=== PATIENT | male | born 1960 | race Caucasian/White ===

== ENCOUNTER 2019-08-01 08:53 | Inpatient (IN) | payer MEDICAID ==
[2019-08-01] MEDS ORDERED: FAMOTIDINE 20 MG/2 ML INJ IV ONE (10:00)
[2019-08-01] MEDS ORDERED: SODIUM CHLORIDE 0.9% 1000 ML 1,000 ML IV ONE ×2 (10:00→11:19)
[2019-08-01] MEDS ORDERED: ONDANSETRON 4 MG/2 ML INJ IV ONE (10:00)
[2019-08-01 10:06] LABS: Bilirubin,Urine NEG (Negative); Blood,Urine SM (Negative); Color,Urine Straw (Yellow); Urobilinogen,Urine < 2.0 mg/dL (<2.0); WBC,Urine < 1.0 /HPF (0.0-6.0)
[2019-08-01 10:24] LABS: Basophils % (Auto) 0.4 % (0.0-1.8); Eosinophils # (Auto) 0.1 K/mm3 (0.0-0.4); Eosinophils % (Auto) 0.8 % (0.0-4.3); Hematocrit 30.4 % (35.5-45.6); Lymphocytes # (Auto) 1.6 K/mm3 (1.2-5.4); Lymphocytes % (Auto) 17.4 % (13.4-35.0); Mean Corpuscular HGB Conc 36 % (32-34); Mean Corpuscular Volume 80 fl (84-94); Monocytes # (Auto) 0.5 K/mm3 (0.0-0.8); Platelet Count 403 K/mm3 (140-440); Red Cell Distribution Width 13.1 % (13.2-15.2)
[2019-08-01 10:55] LABS: Alanine Aminotransferase 13 units/L (7-56); Albumin 3.7 g/dL (3.9-5); BUN/Creatinine Ratio 8; Blood Urea Nitrogen 10 mg/dL (9-20); Calcium 8.6 mg/dL (8.4-10.2); Hemolysis Index 14
--- NOTE | 2019-08-01 11:47 | Emergency Department Report ---
ED General Adult HPI - General Chief complaint: Nausea/Vomiting/Diarrhea Stated complaint: UNCONTROL URINE/VOMITING Time Seen by Provider: 08/01/19 09:54 Source: family Mode of arrival: Ambulatory Limitations: Language Barrier - History of Present Illness Initial comments: Patient is a 59-year-old [place]ese gentleman who is being brought in by family because of one week of nausea and vomiting. 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 He states he is not eaten in a week. Patient has a history of diabetes hypertension and a "brain disease". When asked to give further information about his brain disease his sister states that he has a mental disorder. Patient is denying any headache fevers chills neck stiffness cough cold congestion or abdominal pain at this time. Patient's family state that he is been unable to sleep and has been very restless over the past week. They also state that he's had urinary frequency but the patient is denying any dysuria - Related Data Allergies Allergy/AdvReac Type Severity Reaction Status Date / Time No Known Allergies Allergy Unverified 08/01/19 09:00 ED Review of Systems ROS: Stated complaint: UNCONTROL URINE/VOMITING Other details as noted in HPI Comment: All other systems reviewed and negative ED Past Medical Hx - Past Medical History Previous Medical History?: Yes Hx Hypertension: Yes Hx Diabetes: Yes - Social History Smoking Status: Never Smoker Substance Use Type: None ED Physical Exam - General Limitations: Language Barrier General appearance: alert, in no apparent distress - Head Head exam: Present: atraumatic, normocephalic - Eye Eye exam: Present: normal appearance, PERRL, EOMI - ENT ENT exam: Present: mucous membranes dry - Neck Neck exam: Present: normal inspection. Absent: tenderness - Respiratory Respiratory exam: Present: normal lung sounds bilaterally. Absent: respiratory distress, wheezes, rales, rhonchi - Cardiovascular Cardiovascular Exam: Present: normal rhythm, tachycardia, normal heart sounds. Absent: systolic murmur, diastolic murmur, rubs, gallop - GI/Abdominal GI/Abdominal exam: Present: soft, normal bowel sounds. Absent: distended, tenderness, guarding, rebound - Rectal Rectal exam: Present: deferred - Extremities Exam Extremities exam: Present: normal inspection - Back Exam Back exam: Present: normal inspection - Neurological Exam Neurological exam: Present: alert, oriented X3 - Psychiatric Psychiatric exam: Present: normal affect, normal mood - Skin Skin exam: Present: warm, dry, intact, normal color. Absent: rash ED Course Vital Signs 08/01/19 09:07 Temperature 98.0 F Pulse Rate 101 H Respiratory 18 Rate Blood Pressure 175/85 O2 Sat by Pulse 98 Oximetry - Reevaluation(s) Reevaluation #1: 08/01/19 12:02 To be admitted to the hospitalist service. ED Medical Decision Making - Lab Data Result diagrams: 08/01/19 10:03 08/01/19 10:03 Lab Results 08/01/19 08/01/19 08/01/19 Range/Units 09:14 09:33 10:03 WBC 9.1 (4.5-11.0) K/mm3 RBC 3.80 (3.65-5.03) M/mm3 Hgb 11.0 L (11.8-15.2) gm/dl Hct 30.4 L (35.5-45.6) % MCV 80 L (84-94) fl MCH 29 (28-32) pg MCHC 36 H (32-34) % RDW 13.1 L (13.2-15.2) % Plt Count 403 (140-440) K/mm3 Lymph % (Auto) 17.4 (13.4-35.0) % [place] % (Auto) 6.0 (0.0-7.3) % Eos % (Auto) 0.8 (0.0-4.3) % Baso % (Auto) 0.4 (0.0-1.8) % Lymph # 1.6 (1.2-5.4) K/mm3 [place] # 0.5 (0.0-0.8) K/mm3 Eos # 0.1 (0.0-0.4) K/mm3 Baso # 0.0 (0.0-0.1) K/mm3 Seg Neutrophils % 75.4 H (40.0-70.0) % Seg Neutrophils # 6.8 (1.8-7.7) K/mm3 Sodium (137-145) mmol/L Potassium (3.6-5.0) mmol/L Chloride (98-107) mmol/L Carbon Dioxide (22-30) mmol/L Anion Gap mmol/L BUN (9-20) mg/dL Creatinine (0.8-1.5) mg/dL Estimated GFR ml/min BUN/Creatinine Ratio % Glucose (75-100) mg/dL POC Glucose 148 H (70-105) Calcium (8.4-10.2) mg/dL Total Bilirubin (0.1-1.2) mg/dL AST (5-40) units/L ALT (7-56) units/L Alkaline Phosphatase (35-129) units/L Total Protein (6.3-8.2) g/dL Albumin (3.9-5) g/dL Albumin/Globulin Ratio % Urine Color Straw (Yellow) Urine Turbidity Clear (Clear) Urine pH 7.0 (5.0-7.0) Ur Specific [place] 1.003 (1.003-1.030) Urine Protein 100 mg/dl (Negative) mg/dL Urine Glucose (UA) 50 (Negative) mg/dL Urine Ketones Neg (Negative) mg/dL Urine Blood Sm (Negative) Urine Nitrite Neg (Negative) Urine Bilirubin Neg (Negative) Urine Urobilinogen < 2.0 (<2.0) mg/dL Ur Leukocyte Esterase Neg (Negative) Urine WBC (Auto) < 1.0 (0.0-6.0) /HPF Urine RBC (Auto) 1.0 (0.0-6.0) /HPF 08/01/19 Range/Units 10:03 WBC (4.5-11.0) K/mm3 RBC (3.65-5.03) M/mm3 Hgb (11.8-15.2) gm/dl Hct (35.5-45.6) % MCV (84-94) fl MCH (28-32) pg MCHC (32-34) % RDW (13.2-15.2) % Plt Count (140-440) K/mm3 Lymph % (Auto) (13.4-35.0) % [place] % (Auto) (0.0-7.3) % Eos % (Auto) (0.0-4.3) % Baso % (Auto) (0.0-1.8) % Lymph # (1.2-5.4) K/mm3 [place] # (0.0-0.8) K/mm3 Eos # (0.0-0.4) K/mm3 Baso # (0.0-0.1) K/mm3 Seg Neutrophils % (40.0-70.0) % Seg Neutrophils # (1.8-7.7) K/mm3 Sodium 120 L (137-145) mmol/L Potassium 4.5 (3.6-5.0) mmol/L Chloride 80.9 L (98-107) mmol/L Carbon Dioxide 22 (22-30) mmol/L Anion Gap 22 mmol/L BUN 10 (9-20) mg/dL Creatinine 1.2 (0.8-1.5) mg/dL Estimated GFR > 60 ml/min BUN/Creatinine Ratio 8 % Glucose 133 H (75-100) mg/dL POC Glucose (70-105) Calcium 8.6 (8.4-10.2) mg/dL Total Bilirubin 0.40 (0.1-1.2) mg/dL AST 19 (5-40) units/L ALT 13 (7-56) units/L Alkaline Phosphatase 84 (35-129) units/L Total Protein 6.7 (6.3-8.2) g/dL Albumin 3.7 L (3.9-5) g/dL Albumin/Globulin Ratio 1.2 % Urine Color (Yellow) Urine Turbidity (Clear) Urine pH (5.0-7.0) Ur Specific [place] (1.003-1.030) Urine Protein (Negative) mg/dL Urine Glucose (UA) (Negative) mg/dL Urine Ketones (Negative) mg/dL Urine Blood (Negative) Urine Nitrite (Negative) Urine Bilirubin (Negative) Urine Urobilinogen (<2.0) mg/dL Ur Leukocyte Esterase (Negative) Urine WBC (Auto) (0.0-6.0) /HPF Urine RBC (Auto) (0.0-6.0) /HPF - Medical Decision Making Patient is a 59-year-old [place]ese gentleman who is presenting with 1 week of nausea vomiting decreased appetite. Patient's laboratory studies show that he has a severely decreased sodium level. Patient is a diabetic but his blood glucoses were relatively within normal limits. Patient was given IV hydration here in emergency department. Consult to the hospitalist to see the patient meets criteria for admission. Critical care attestation.: If time is entered above; I have spent that time in minutes in the direct care of this critically ill patient, excluding procedure time. ED Disposition Clinical Impression: Hyponatremia Disposition: DC-09 OP ADMIT IP TO THIS HOSP Is pt being admited?: Yes Does the pt Need Aspirin: No Condition: Stable Referrals: AIDEN CARCAMO MD [Primary Care Provider] - 3-5 Days Time of Disposition: 12:02
--- NOTE | 2019-08-01 11:47 | History and Physical Report ---
History of Present Illness Chief complaint: He is confused, and not eating, and can hardly walk History of present illness: 59 YO Male with HTN, DM presents to ED for evaluation. Pt is confused, and unable to provide history. Pt history is provided by family who is at bedside during exam and interview. per family, the patient has experienced increased weakness and confusion over the past 1 week with progressively worsening symptoms over the same time frame. Pt has developed progressive weakness and is currently unable to ambulate independently, and is bedbound. Pt transported to [facility] via private vehicle for further evaluation and care. Pt seen and evaluated in ED and found to be in distress. Pt is currently minimally verbal, confused, and does not respond when his name is called. Pt is unable to track and follow commands. Pt has 90% decrease in all oral intake over the past 1-2 weeks. Pt found to have Severe Hyponatremia complicated by Metabolic Encephalopathy. Pt currently requires 6/6 assistance with activities of daily living and requires verbal prompting and redirection with all activities, and has diminished gag reflex and is at risk for aspiration. Pt is unable to maintain a seated position in bed without slumping over. Pt requires assistance with repositioning in bed. Pt has GCS of 12. Pt admitted to [facility] and treated with supportive care due to high likelihood of clinical decompensation and worsening of the aforementioned symptoms. Nephrology consulted in ED. No further history obtainable. No prior admission for review. All medication listed at time of admission have been reconciled. Past History Past Medical History: diabetes, hypertension Past Surgical History: No surgical history, Other (reviewed) Social history: single. denies: smoking, alcohol abuse, prescription drug abuse Family history: no significant family history (reviewed) Medications and Allergies Allergies Allergy/AdvReac Type Severity Reaction Status Date / Time No Known Allergies Allergy Unverified 08/01/19 09:00 Active Meds: Active Medications Sodium Chloride (Nacl 0.9% 1000 Ml) 1,000 mls @ 999 mls/hr IV BOLUS ONE Stop: 08/01/19 12:19 Review of Systems ROS unobtainable: due to mental status Exam - Constitutional Vitals: Temp Pulse Resp BP Pulse Ox 98.0 F 101 H 18 175/85 98 08/01/19 09:07 08/01/19 09:07 08/01/19 09:07 08/01/19 09:07 08/01/19 09:07 General appearance: Present: severe distress, disheveled - EENT Eyes: Present: PERRL ENT: hearing intact, clear oral mucosa - Neck Neck: Present: supple, normal ROM - Respiratory Respiratory effort: normal Respiratory: bilateral: CTA - Cardiovascular Heart Sounds: Present: S1 & S2. Absent: rub, click - Extremities Extremities: pulses symmetrical, No edema Peripheral Pulses: within normal limits - Abdominal General gastrointestinal: Present: soft, non-tender, non-distended, normal bowel sounds Male genitourinary: Present: normal - Integumentary Integumentary: Present: clear, dry, clammy, decreased turgor - Musculoskeletal Musculoskeletal: generalized weakness - Psychiatric Psychiatric: no appropriate mood/affect, no intact judgment & insight, no memory intact - Neurologic Neurologic: CNII-XII intact, no focal deficits, moves all extremities, no gait normal Results - Labs CBC & Chem 7: 08/01/19 10:03 08/01/19 10:03 Labs: Abnormal lab results 08/01/19 08/01/19 08/01/19 Range/Units 09:14 10:03 10:03 Hgb 11.0 L (11.8-15.2) gm/dl Hct 30.4 L (35.5-45.6) % MCV 80 L (84-94) fl MCHC 36 H (32-34) % RDW 13.1 L (13.2-15.2) % Seg Neutrophils % 75.4 H (40.0-70.0) % Sodium 120 L (137-145) mmol/L Chloride 80.9 L (98-107) mmol/L Glucose 133 H (75-100) mg/dL POC Glucose 148 H (70-105) Albumin 3.7 L (3.9-5) g/dL Assessment and Plan - Patient Problems (1) Metabolic encephalopathy Current Visit: Yes Status: Acute Plan to address problem: CT head, neuro check, thyroid panel, aspiration precautions, fall precautions, IVF resuscitation therapy, CBC, CMP, seizure precautions, NPO for 12 hours. (2) Hyponatremia syndrome Current Visit: Yes Status: Acute Plan to address problem: Nephrology consulted, Urine electrolytes, urine osmolality, monitor uop q shift, IVF resuscitation therapy, neuro checks, serial bmp, monitor volume status to determine if currently euvolemic/hypervolemic/or hypovolumeic. supportive care (3) HTN (hypertension) Current Visit: Yes Status: Acute Qualifiers: Hypertension type: essential hypertension Qualified Code(s): I10 - Essential (primary) hypertension Plan to address problem: Monitor bp q shift, supportive care, continue medical management. (4) Diabetes Current Visit: Yes Status: Acute Plan to address problem: ADA diet, insulin, accu check, hypoglycemia protocol (5) Debility Current Visit: Yes Status: Acute Plan to address problem: PT consulted, Case management consulted for D/C Planning. (6) DVT prophylaxis Current Visit: Yes Status: Acute Plan to address problem: SCD to BLE while in bed. Prophylactic heparin
--- NOTE | 2019-08-01 13:52 | Cat Scan Report ---
CT head without contrast INDICATION : confusion. TECHNIQUE: Axial imaging performed from the skull apex through the skull base without the use of con trast. All CT scans at this location are performed using CT dose reduction for ALARA by means of aut omated exposure control. COMPARISON: None FINDINGS: Parenchyma: No acute intracranial hemorrhage or parenchymal abnormality. Ventricles: Ventricles are normal in size and appear symmetric. Soft tissues: Soft tissues including the orbits appear normal. Bones: No acute osseous abnormality. Sinuses: Sinuses and mastoid air cells are clear. IMPRESSION: No acute abnormality. Signer Name: Nicola Ramos MD Signed: 08/01/2019 1:48 PM Workstation Name: [id number]
[2019-08-01] MEDS ORDERED: SODIUM CHLORIDE 0.9% 1000 ML 1,000 ML ONE (15:14)
[2019-08-01 15:38] LABS: Bilirubin,Urine NEG (Negative); Blood,Urine SM (Negative); Color,Urine Colorless (Yellow); Urobilinogen,Urine < 2.0 mg/dL (<2.0); WBC,Urine < 1.0 /HPF (0.0-6.0)
[2019-08-01 15:39] LABS: Creatinine,Urine 13.6 mg/dL (0.1-20.0)
--- NOTE | 2019-08-01 16:12 | Consultation ---
History of Present Illness - Reason for Consult Consult date: 08/01/19 hyponatremia - History of Present Illness The patient is a 59 YO cymraes with history significant for HTN, DM type 2, ?Schizophrenia and chronic confusion who presented to [facility] ED 08/01 with c/o persistent N & V for the past week. Pt is confused and history was provided by the family at bedside. Patient has persistent vomiting for the past week. He vomits everytime he vomits. His PO intake has been poor for the past week. Pt is also has some weakness and not walking well for the past few days. He was found to have Sodium level of 120 on admission. His psych meds include Latuda, Zyprexa and Trazadone. Nephrology was consulted for further evaluation. Past History Past Medical History: diabetes, hypertension, other (see HPI) Past Surgical History: No surgical history, Other (reviewed) Social history: single. denies: smoking, alcohol abuse, prescription drug abuse Family history: no significant family history (reviewed) Medications and Allergies Allergies Allergy/AdvReac Type Severity Reaction Status Date / Time No Known Allergies Allergy Unverified 08/01/19 09:00 Home Medications Medication Instructions Recorded Confirmed Last Taken Type Insulin Glargine [Lantus VIAL] 52 units IM DAILY 08/01/19 08/01/19 Unknown History Latuda 80 mg PO DAILY 08/01/19 08/01/19 Unknown History Metoprolol [Lopressor TAB] 25 mg PO DAILY 08/01/19 08/01/19 Unknown History OLANzapine [Zyprexa] 10 mg PO DAILY 08/01/19 08/01/19 Unknown History metFORMIN [Glucophage] 850 mg PO TID 08/01/19 08/01/19 Unknown History traZODone [Desyrel] 100 mg PO PRN 08/01/19 08/01/19 Unknown History Active Meds: Active Medications Sodium Chloride (Nacl 0.9% 1000 Ml) 1,000 mls @ 125 mls/hr IV DIRECT LANG Sodium Chloride (Sodium Chloride Flush Syringe 10 Ml) 10 ml IV BID LANG Sodium Chloride (Sodium Chloride Flush Syringe 10 Ml) 10 ml IV PRN PRN PRN Reason: LINE FLUSH Review of Systems ROS unobtainable: due to mental status Exam - Vital Signs Vital signs: Vital Signs Temp Pulse Resp BP Pulse Ox 98.0 F 101 H 18 175/85 98 08/01/19 09:07 08/01/19 09:07 08/01/19 09:07 08/01/19 09:07 08/01/19 09:07 - General Appearance General appearance: well-developed, well-nourished, appears stated age, other (no distress) EENT: ATNC, PERRL, hearing intact Neck: Present: neck supple, trachea midline Respiratory: Clear to Ascultation Heart: regular, S1S2, no murmurs Gastrointestinal: Present: normoactive bowel sounds. Absent: tenderness, distended Integumentary: no rash Neurologic: confused, disoriented, other (follows some command) Musculoskeletal: Present: other (no edema) Results - Lab Results 08/01/19 10:03 08/01/19 10:03 Most recent lab results Calcium 8.6 mg/dL (8.4-10.2) 08/01/19 10:03 Urine Creatinine 13.6 mg/dL (0.1-20.0) 08/01/19 15:15 Urine Sodium 21 mmol/L 08/01/19 09:33 Assessment and Plan 1. Hyponatremia: Likely hyponatremia from combination of volume depletion / poor PO intake and medication. Urine studies results noted. Continue IV fluids to treat any volume depletion. Stat labs ordered and I also spoke to the RN in IMCU. Pt need serial chemistry to monitor Sodium levels. 2. FEN: Volume depletion, continue IV fluids. Monitor lytes. 3. Encephalopathy. 4. Nausea and vomiting. 5. Normochromic anemia: POA. 6. DM type 2. 7. Hypertension.
[2019-08-01 21:18] LABS: BUN/Creatinine Ratio 8; Blood Urea Nitrogen 9 mg/dL (9-20); Calcium 8.5 mg/dL (8.4-10.2); Hemolysis Index 17
[2019-08-01 21:22] LABS: Uric Acid 4.6 mg/dL (3.5-7.6)
[2019-08-01] MEDS ORDERED: MAGNESIUM SULFATE 2 GM/50 ML BAG IV ONE (21:30)
[2019-08-01] MEDS: SODIUM CHLORIDE 0.9% 1000 ML 1,000 ML IV SCH (23:11)
[2019-08-01] MEDS ORDERED: diphenhydrAMINE 50 MG/ML VIAL IV ONE (23:28)
[2019-08-02 07:07] LABS: BUN/Creatinine Ratio 8; Blood Urea Nitrogen 10 mg/dL (9-20); Calcium 8.6 mg/dL (8.4-10.2); Hemolysis Index 73
[2019-08-02] MEDS: SODIUM CHLORIDE 0.9% 1000 ML 1,000 ML IV SCH (07:43)
--- NOTE | 2019-08-02 11:52 | Progress Note ---
Assessment and Plan 1. Hyponatremia: Likely hyponatremia secondary to volume depletion +/- SSRI. Urine studies results noted. Continue IV fluids to treat any volume depletion. Sodium level is improving appropriately. Monitor sodium level. 2. FEN: Volume depletion, continue IV fluids. Monitor lytes. 3. Encephalopathy. 4. Nausea and vomiting. 5. Normochromic anemia: POA. 6. DM type 2. 7. Hypertension. Examination: General appearance: well-developed, well-nourished, appears stated age, no distress HEENT: ATNC, LIZA Neck: neck supple, trachea midline Respiratory: Clear to Ascultation Heart: regular, S1S2, no murmurs Gastrointestinal: soft, normoactive bowel sounds, not tender Integumentary: no rash Neurologic: able to move extremities Ext: no edema Subjective Date of service: 08/02/19 Interval history: Patient was seen and examined at the bedside. Objective - Vital Signs Vital signs: Vital Signs - 12hr 08/02/19 08/02/19 08/02/19 00:00 00:01 00:11 Temperature Pulse Rate 99 H 93 H Pulse Rate [ 84 Apical] Pulse Rate [ From Monitor] Respiratory 14 14 13 Rate Blood Pressure 168/80 168/80 O2 Sat by Pulse 99 99 99 Oximetry 08/02/19 08/02/19 08/02/19 00:21 00:31 00:41 Temperature Pulse Rate 91 H 85 89 Pulse Rate [ Apical] Pulse Rate [ From Monitor] Respiratory 14 13 14 Rate Blood Pressure 168/80 168/80 168/80 O2 Sat by Pulse 99 100 98 Oximetry 08/02/19 08/02/19 08/02/19 00:51 01:00 01:11 Temperature Pulse Rate 87 86 87 Pulse Rate [ Apical] Pulse Rate [ From Monitor] Respiratory 10 L 12 14 Rate Blood Pressure 168/80 174/79 174/79 O2 Sat by Pulse 100 100 99 Oximetry 08/02/19 08/02/19 08/02/19 01:21 01:31 01:41 Temperature Pulse Rate 89 92 H 90 Pulse Rate [ Apical] Pulse Rate [ From Monitor] Respiratory 14 12 17 Rate Blood Pressure 174/79 174/79 174/79 O2 Sat by Pulse 100 100 99 Oximetry 08/02/19 08/02/19 08/02/19 01:51 02:00 02:11 Temperature Pulse Rate 91 H 86 109 H Pulse Rate [ Apical] Pulse Rate [ From Monitor] Respiratory 13 13 13 Rate Blood Pressure 174/79 149/71 O2 Sat by Pulse 100 98 99 Oximetry 08/02/19 08/02/19 08/02/19 02:21 02:31 02:41 Temperature Pulse Rate 80 96 H 88 Pulse Rate [ Apical] Pulse Rate [ From Monitor] Respiratory 10 L 13 12 Rate Blood Pressure 149/71 149/71 149/71 O2 Sat by Pulse 100 99 100 Oximetry 08/02/19 08/02/19 08/02/19 02:51 03:00 03:11 Temperature Pulse Rate 85 86 82 Pulse Rate [ Apical] Pulse Rate [ From Monitor] Respiratory 12 13 19 Rate Blood Pressure 149/71 114/92 149/71 O2 Sat by Pulse 100 100 98 Oximetry 08/02/19 08/02/19 08/02/19 03:21 03:31 03:40 Temperature 98 F Pulse Rate 94 H 90 Pulse Rate [ Apical] Pulse Rate [ From Monitor] Respiratory 13 15 Rate Blood Pressure 149/71 149/71 O2 Sat by Pulse 100 100 Oximetry 08/02/19 08/02/19 08/02/19 03:41 03:51 04:00 Temperature Pulse Rate 84 86 Pulse Rate [ 88 Apical] Pulse Rate [ From Monitor] Respiratory 12 13 16 Rate Blood Pressure 114/92 114/92 O2 Sat by Pulse 99 99 99 Oximetry 08/02/19 08/02/19 08/02/19 04:01 04:11 04:21 Temperature Pulse Rate 83 85 83 Pulse Rate [ Apical] Pulse Rate [ From Monitor] Respiratory 12 12 11 L Rate Blood Pressure 157/66 157/66 157/66 O2 Sat by Pulse 99 99 99 Oximetry 08/02/19 08/02/19 08/02/19 04:31 04:41 04:51 Temperature Pulse Rate 79 99 H 87 Pulse Rate [ Apical] Pulse Rate [ From Monitor] Respiratory 11 L 12 13 Rate Blood Pressure 157/66 157/66 157/66 O2 Sat by Pulse 98 99 99 Oximetry 08/02/19 08/02/19 08/02/19 05:01 05:11 05:20 Temperature Pulse Rate 91 H 98 H 85 Pulse Rate [ Apical] Pulse Rate [ From Monitor] Respiratory 18 17 12 Rate Blood Pressure 157/70 157/70 170/77 O2 Sat by Pulse 99 99 100 Oximetry 08/02/19 08/02/19 08/02/19 05:31 05:41 05:51 Temperature Pulse Rate 89 90 91 H Pulse Rate [ Apical] Pulse Rate [ From Monitor] Respiratory 13 17 13 Rate Blood Pressure 170/77 170/77 O2 Sat by Pulse 99 100 100 Oximetry 08/02/19 08/02/19 08/02/19 06:00 06:11 06:21 Temperature Pulse Rate 93 H 91 H 95 H Pulse Rate [ Apical] Pulse Rate [ From Monitor] Respiratory 14 13 14 Rate Blood Pressure 177/81 177/81 177/81 O2 Sat by Pulse 99 99 100 Oximetry 08/02/19 08/02/19 08/02/19 06:31 06:41 06:51 Temperature Pulse Rate 91 H 83 93 H Pulse Rate [ Apical] Pulse Rate [ From Monitor] Respiratory 13 12 13 Rate Blood Pressure 177/81 177/81 177/81 O2 Sat by Pulse 98 99 100 Oximetry 08/02/19 08/02/19 08/02/19 07:01 07:11 07:21 Temperature Pulse Rate 107 H 92 H 92 H Pulse Rate [ Apical] Pulse Rate [ From Monitor] Respiratory 18 17 16 Rate Blood Pressure 171/71 171/71 171/71 O2 Sat by Pulse 99 99 100 Oximetry 08/02/19 08/02/19 08/02/19 07:31 07:41 07:51 Temperature Pulse Rate 92 H 84 90 Pulse Rate [ Apical] Pulse Rate [ From Monitor] Respiratory 12 13 12 Rate Blood Pressure 171/71 171/71 171/71 O2 Sat by Pulse 99 99 99 Oximetry 08/02/19 08/02/19 08/02/19 08:00 08:01 08:11 Temperature 97.7 F Pulse Rate 99 H 92 H Pulse Rate [ 88 Apical] Pulse Rate [ 88 From Monitor] Respiratory 15 13 12 Rate Blood Pressure 143/73 143/73 O2 Sat by Pulse 98 100 99 Oximetry 08/02/19 08/02/19 08/02/19 08:18 08:21 08:31 Temperature Pulse Rate 88 91 H 94 H Pulse Rate [ Apical] Pulse Rate [ From Monitor] Respiratory 14 12 Rate Blood Pressure 143/73 143/73 O2 Sat by Pulse 98 97 Oximetry 08/02/19 08/02/19 08/02/19 08:41 08:51 09:00 Temperature Pulse Rate 90 87 99 H Pulse Rate [ Apical] Pulse Rate [ From Monitor] Respiratory 12 13 13 Rate Blood Pressure 143/73 143/73 166/93 O2 Sat by Pulse 97 98 99 Oximetry 08/02/19 08/02/19 09:11 11:48 Temperature Pulse Rate 96 H 84 Pulse Rate [ Apical] Pulse Rate [ From Monitor] Respiratory 13 Rate Blood Pressure 166/93 164/71 O2 Sat by Pulse 99 Oximetry - Lab 08/01/19 10:03 08/02/19 15:48 Most recent lab results Calcium 8.6 mg/dL (8.4-10.2) 08/02/19 05:32 Phosphorus 2.60 mg/dL (2.5-4.5) 08/01/19 19:34 Magnesium 1.60 mg/dL (1.7-2.3) L 08/01/19 19:34 Urine Creatinine 13.6 mg/dL (0.1-20.0) 08/01/19 15:15 Urine Sodium 21 mmol/L 08/01/19 09:33 Medications & Allergies - Medications Allergies/Adverse Reactions: Allergies No Known Allergies Allergy (Unverified 08/01/19 09:00) Home Medications: Home Medications Medication Instructions Recorded Confirmed Last Taken Type Insulin Glargine [Lantus VIAL] 52 units IM DAILY 08/01/19 08/01/19 Unknown History Latuda 80 mg PO DAILY 08/01/19 08/01/19 Unknown History Metoprolol [Lopressor TAB] 25 mg PO DAILY 08/01/19 08/01/19 Unknown History OLANzapine [Zyprexa] 10 mg PO DAILY 08/01/19 08/01/19 Unknown History metFORMIN [Glucophage] 850 mg PO TID 08/01/19 08/01/19 Unknown History traZODone [Desyrel] 100 mg PO PRN 08/01/19 08/01/19 Unknown History Active Medications: Generic Name Dose Route Start Last Admin Trade Name Freq PRN Reason Stop Dose Admin Sodium Chloride 1,000 mls @ 125 mls/hr 08/01/19 12:00 08/02/19 07:43 Nacl 0.9% 1000 Ml IV 125 mls/hr DIRECT LANG Administration Magnesium Sulfate 1 gm/ Sodium 52 mls @ 52 mls/hr 08/02/19 12:00 Chloride IV 08/02/19 12:59 ONCE ONE Insulin Glargine 30 units 08/03/19 08:00 Lantus SUB-Q QDDIAB [facility] Metformin HCl 850 mg 08/02/19 16:30 Glucophage PO TIDAC [facility] Metoprolol Tartrate 25 mg 08/02/19 12:00 08/02/19 11:48 Metoprolol PO 25 mg DAILY [facility] Administration Miscellaneous Medication 80 mg 08/02/19 11:30 Latuda PO DAILY [facility] Olanzapine 10 mg 08/03/19 10:00 Zyprexa PO DAILY [facility] Sodium Chloride 10 ml 08/01/19 22:00 08/02/19 11:49 Sodium Chloride Flush Syringe 10 Ml IV Not Given BID LANG Sodium Chloride 10 ml 08/01/19 11:51 Sodium Chloride Flush Syringe 10 Ml IV PRN PRN LINE FLUSH Trazodone HCl 100 mg 08/02/19 12:00 Desyrel PO PRN LANG
[2019-08-02] MEDS ORDERED: METOPROLOL TARTRATE 25 MG TAB PO SCH (12:00)
[2019-08-02] MEDS ORDERED: MAGNESIUM SULFATE 1 GM in SODIUM CHLORIDE 0.9% 50 ML IV ONE (12:00)
[2019-08-02 16:47] LABS: BUN/Creatinine Ratio 10; Blood Urea Nitrogen 11 mg/dL (9-20); Calcium 8.8 mg/dL (8.4-10.2); Hemolysis Index 29
--- NOTE | 2019-08-02 17:49 | Progress Note ---
Assessment and Plan Assessment and plan: 59 YO Male with HTN, DM presents to ED for evaluation. Pt is confused, and unable to provide history. Pt history is provided by family who is at bedside during exam and interview. per family, the patient has experienced increased weakness and confusion over the past 1 week with progressively worsening symptoms over the same time frame. Pt has developed progressive weakness and is currently unable to ambulate independently, and is bedbound. Pt transported to [facility] via private vehicle for further evaluation and care. Pt seen and evaluated in ED and found to be in distress. Pt is currently minimally verbal, confused, and does not respond when his name is called. * On admission pt is unable to track and follow commands. Pt has 90% decrease in all oral intake over the past 1-2 weeks. Pt found to have Severe Hyponatremia complicated by Metabolic Encephalopathy. * Pt currently requires 6/6 assistance with activities of daily living and requires verbal prompting and redirection with all activities, and has diminished gag reflex and is at risk for aspiration. Pt is unable to maintain a seated position in bed without slumping over. * Pt requires assistance with repositioning in bed. Pt has GCS of 12. Pt admitted to [facility] and treated with supportive care due to high likelihood of clinical decompensation and worsening of the aforementioned symptoms. Nephrology consulted in ED. No further history obtainable. No prior admission for review. All medication listed at time of admission have been reconciled. Acute metabolic encephalopathy etiology plus or minus hyponatremia Adult failure to thrive Severe hyponatremia Diabetes mellitus Anemia DM with Hyperglycemia Hypertensive urgency Plan Continue supportive care hyponatremia improving nephrology input appreciated Food General Manager consult Check TSH, B12, folic acid level CT of the head reviewed no acute pathology noted Obtain urine drug screen Continue diabetic management Physical therapy and occupational therapy evaluation and treat If mental status continues to be an issue will obtain an MRI and probably neurology consult Patient's mental status has not yet improved to baseline and will therefore continue inpatient care for further evaluation. Resume home blood pressure medication We will add hydralazine. DVT and GI prophylaxis History Interval history: Patient seen and examined this morning family at bedside. Patient still appears a bit confused but following commands and answering questions to the family appropriately. Per family patient is compliant with medications except recently with change in mental status. Hospitalist Physical - Physical exam Narrative exam: VITAL SIGNS: Reviewed. GENERAL: The patient appears normally developed, Vital signs as documented. HEAD: No signs of head trauma. EYES: Pupils are equal. Extraocular motions intact. EARS: Hearing grossly intact. MOUTH: Oropharynx is normal. NECK: No adenopathy, no JVD. CHEST: Chest with clear breath sounds bilaterally. No wheezes, rales, or rhonchi. CARDIAC: Regular rate and rhythm. S1 and S2, without murmurs, gallops, or rubs. VASCULAR: No Edema. Peripheral pulses normal and equal in all extremities. ABDOMEN: Soft, non tender and non distended. No rebound or guarding, and no masses palpated. Bowel Sounds normal. MUSCULOSKELETAL: Good range of motion of all major joints. Extremities without clubbing, cyanosis or edema. NEUROLOGIC EXAM: Alert and oriented x 2 No focal sensory or strength deficits. Speech normal. Follows commands. PSYCHIATRIC: Mood normal. SKIN: detail exam as documented in skin assessment - Constitutional Vitals: Temp Pulse Resp BP Pulse Ox 99.1 F 83 13 146/89 98 08/02/19 12:00 08/02/19 12:50 08/02/19 12:50 08/02/19 13:00 08/02/19 13:00 General appearance: Present: severe distress, disheveled Results - Labs CBC & Chem 7: 08/01/19 10:03 08/02/19 15:48 Labs: Laboratory Last Values WBC 9.1 K/mm3 (4.5-11.0) 08/01/19 10:03 RBC 3.80 M/mm3 (3.65-5.03) 08/01/19 10:03 Hgb 11.0 gm/dl (11.8-15.2) L 08/01/19 10:03 Hct 30.4 % (35.5-45.6) L 08/01/19 10:03 MCV 80 fl (84-94) L 08/01/19 10:03 MCH 29 pg (28-32) 08/01/19 10:03 MCHC 36 % (32-34) H 08/01/19 10:03 RDW 13.1 % (13.2-15.2) L 08/01/19 10:03 Plt Count 403 K/mm3 (140-440) 08/01/19 10:03 Lymph % (Auto) 17.4 % (13.4-35.0) 08/01/19 10:03 [place] % (Auto) 6.0 % (0.0-7.3) 08/01/19 10:03 Eos % (Auto) 0.8 % (0.0-4.3) 08/01/19 10:03 Baso % (Auto) 0.4 % (0.0-1.8) 08/01/19 10:03 Lymph # 1.6 K/mm3 (1.2-5.4) 08/01/19 10:03 [place] # 0.5 K/mm3 (0.0-0.8) 08/01/19 10:03 Eos # 0.1 K/mm3 (0.0-0.4) 08/01/19 10:03 Baso # 0.0 K/mm3 (0.0-0.1) 08/01/19 10:03 Seg Neutrophils % 75.4 % (40.0-70.0) H 08/01/19 10:03 Seg Neutrophils # 6.8 K/mm3 (1.8-7.7) 08/01/19 10:03 Sodium 136 mmol/L (137-145) L 08/02/19 15:48 Potassium 4.6 mmol/L (3.6-5.0) 08/02/19 15:48 Chloride 102.4 mmol/L (98-107) 08/02/19 15:48 Carbon Dioxide 21 mmol/L (22-30) L 08/02/19 15:48 Anion Gap 17 mmol/L 08/02/19 15:48 BUN 11 mg/dL (9-20) 08/02/19 15:48 Creatinine 1.1 mg/dL (0.8-1.5) 08/02/19 15:48 Estimated GFR > 60 ml/min 08/02/19 15:48 BUN/Creatinine Ratio 10 % 08/02/19 15:48 Glucose 136 mg/dL (75-100) H 08/02/19 15:48 POC Glucose 124 (70-105) H 08/02/19 17:35 Osmolality 266 Mosm/kg 08/01/19 19:34 Uric Acid 4.6 mg/dL (3.5-7.6) 08/01/19 19:34 Calcium 8.8 mg/dL (8.4-10.2) 08/02/19 15:48 Phosphorus 2.60 mg/dL (2.5-4.5) 08/01/19 19:34 Magnesium 1.60 mg/dL (1.7-2.3) L 08/01/19 19:34 Total Bilirubin 0.40 mg/dL (0.1-1.2) 08/01/19 10:03 AST 19 units/L (5-40) 08/01/19 10:03 ALT 13 units/L (7-56) 08/01/19 10:03 Alkaline Phosphatase 84 units/L (35-129) 08/01/19 10:03 Total Protein 6.7 g/dL (6.3-8.2) 08/01/19 10:03 Albumin 3.7 g/dL (3.9-5) L 08/01/19 10:03 Albumin/Globulin Ratio 1.2 % 08/01/19 10:03 Urine Color Colorless (Yellow) 08/01/19 15:14 Urine Turbidity Clear (Clear) 08/01/19 15:14 Urine pH 7.0 (5.0-7.0) 08/01/19 15:14 Ur Specific [place] 1.002 (1.003-1.030) L 08/01/19 15:14 Urine Protein 100 mg/dl mg/dL (Negative) 08/01/19 15:14 Urine Glucose (UA) Neg mg/dL (Negative) 08/01/19 15:14 Urine Ketones Neg mg/dL (Negative) 08/01/19 15:14 Urine Blood Sm (Negative) 08/01/19 15:14 Urine Nitrite Neg (Negative) 08/01/19 15:14 Urine Bilirubin Neg (Negative) 08/01/19 15:14 Urine Urobilinogen < 2.0 mg/dL (<2.0) 08/01/19 15:14 Ur Leukocyte Esterase Neg (Negative) 08/01/19 15:14 Urine WBC (Auto) < 1.0 /HPF (0.0-6.0) 08/01/19 15:14 Urine RBC (Auto) 3.0 /HPF (0.0-6.0) 08/01/19 15:14 Urine Osmolality 80 Mosm/kg 08/01/19 15:15 Urine Creatinine 13.6 mg/dL (0.1-20.0) 08/01/19 15:15 Urine Sodium 21 mmol/L 08/01/19 09:33 Active Medications - Current Medications Current Medications: Generic Name Dose Route Start Last Admin Trade Name Freq PRN Reason Stop Dose Admin Sodium Chloride 1,000 mls @ 125 mls/hr 08/01/19 12:00 08/02/19 07:43 Nacl 0.9% 1000 Ml IV 125 mls/hr DIRECT LANG Administration Insulin Glargine 30 units 08/03/19 08:00 Lantus SUB-Q QDDIAB LANG Metformin HCl 850 mg 08/02/19 16:30 Glucophage PO TIDAC LANG Metoprolol Tartrate 25 mg 08/02/19 12:00 08/02/19 11:48 Metoprolol PO 25 mg DAILY LANG Administration Miscellaneous Medication 80 mg 08/03/19 22:00 Latuda PO QHS LANG Olanzapine 10 mg 08/03/19 10:00 Zyprexa PO DAILY LANG Sodium Chloride 10 ml 08/01/19 22:00 08/02/19 11:49 Sodium Chloride Flush Syringe 10 Ml IV Not Given BID LANG Sodium Chloride 10 ml 08/01/19 11:51 Sodium Chloride Flush Syringe 10 Ml IV PRN PRN LINE FLUSH Trazodone HCl 100 mg 08/03/19 22:00 Desyrel PO QHS [facility] Nutrition/Malnutrition Assess - Dietary Evaluation Nutrition/Malnutrition Findings: Nutrition Notes Start: 08/02/19 13:46 Freq: Status: Active Protocol: Document 08/02/19 13:46 CARLOTTA (Rec: 08/02/19 14:06 DW [id number]) Co-Sign 08/02/19 13:46 Nutrition Notes Need for Assessment generated from: MD Order Initial or Follow up Assessment Current Diagnosis Diabetes,Hypertension Other Pertinent Diagnosis AMS at baseline Current Diet Consistent CHO Labs/Tests Na 131 Glu 111 Pertinent Medications NS at 125 ml/hr Height 5 ft 2 in Weight 85.7 kg Roy Body Weight (kg) 53.63 BMI 34.5 Intake Prior to Admission Poor Weight change and time frame Pt family unsure of recent wt loss Weight Status Obese Subjective/Other Information MD consult for Malnutrition Pt cannot communicate d/t mental illness. Family primary language Serbian. Upon arrival pt brother translated but still spoke minimal Kitt[place]. 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 Pt brother stated he has had frequent emesis. Pt showed no physical signs of malnutrition. Burn Absent Trauma Absent GI Symptoms Nausea,Vomiting Current % PO Poor (25-49%) Minimum of two criteria No physical signs of malnutrition #1 Nutrition Diagnosis Inadequate oral intake Etiology N/V As Evidenced by Signs and Symptoms pt family report of minimal intake Is patient on ventilator? No Is Patient Ambulatory and/or Out of Bed No REE-([facility]-confined to bed) 1866.132 Kcal/Kg value to use for calculation 18 Approximate Energy Requirements Using 1543 kcal/Kg Calculation Used for Recommendations Kcal/kg Additional Notes PRO needs: 56-70g (0.8-1 g/kg AdjBW 70kg) Fluid needs: 1 ml/kcal Nutrition Intervention Change Diet Order: Continue Current Diet Add Supplement/Snack (indicate name/kcal Glucerna once daily /protein ) Provides kCal: 220 Provides Protein (gm) 10 Goal #1 Meet atleast 75% of kcal/PRO needs via PO/ONS Anticipated Discharge Needs: Consistent CHO Follow-Up By: 08/04/19 Additional Comments FU intakes and ONS tolerance
[2019-08-02] MEDS ORDERED: hydrALAZINE 20 MG/1 ML INJ IV PRN (19:42)
[2019-08-02] MEDS: metFORMIN 850 MG TAB PO SCH (20:10)
[2019-08-02] MEDS: METOPROLOL TARTRATE 25 MG TAB PO SCH ×2 (20:11→22:06)
[2019-08-02 22:48] LABS: Amphetamine Screen,Urine PRESUMPTIVE NEGATIVE; Benzodiazepines Screen,Urine PRESUMPTIVE NEGATIVE; Cannabinoid Screen,Urine PRESUMPTIVE NEGATIVE; Cocaine Screen,Urine PRESUMPTIVE NEGATIVE; Methadone Screen,Urine PRESUMPTIVE NEGATIVE; Opiate Screen,Urine PRESUMPTIVE NEGATIVE
[2019-08-02] MEDS ORDERED: DEXTROSE 50% IN WATER (25GM) 50 ML SYRINGE IV PRN (22:49)
[2019-08-03] MEDS: INSULIN LISPRO 100 UNIT/ML SUB-Q SCH ×3 (00:05→12:20)
--- NOTE | 2019-08-03 07:45 | Progress Note ---
Assessment and Plan 1. Hyponatremia: Likely hyponatremia secondary to volume depletion +/- SSRI. Sodium level has improved appropriately. Continue IV fluids to treat any volume depletion. Monitor sodium level. 2. FEN: Volume depletion, continue IV fluids. Monitor lytes. 3. Encephalopathy. 4. Nausea and vomiting. 5. Normochromic anemia: POA. 6. DM type 2. 7. Hypertension: BP is better. Examination: General appearance: well-developed, well-nourished, appears stated age, no distress HEENT: ATNC, LIZA Neck: neck supple, trachea midline Respiratory: Clear to Ascultation Heart: regular, S1S2, no murmurs Gastrointestinal: soft, normoactive bowel sounds, not tender Integumentary: no rash Neurologic: able to move extremities Ext: no edema Subjective Date of service: 08/03/19 Interval history: Patient was seen and examined at the bedside. Brother at the bedside. Objective - Vital Signs Vital signs: Vital Signs - 12hr 08/02/19 08/02/19 08/02/19 20:00 21:13 22:00 Temperature 97.7 F Pulse Rate 91 H Pulse Rate [ 88 Apical] Pulse Rate [ 82 From Monitor] Respiratory 16 18 Rate Respiratory 18 Rate [pt denies ] Blood Pressure 149/48 O2 Sat by Pulse 100 96 Oximetry 08/02/19 08/03/19 22:06 04:29 Temperature 97.7 F Pulse Rate 89 81 Pulse Rate [ Apical] Pulse Rate [ From Monitor] Respiratory 20 Rate Respiratory Rate [pt denies ] Blood Pressure 149/84 147/57 O2 Sat by Pulse 97 Oximetry - Lab 08/01/19 10:03 08/03/19 06:46 Most recent lab results Calcium 8.8 mg/dL (8.4-10.2) 08/02/19 15:48 Phosphorus 2.60 mg/dL (2.5-4.5) 08/01/19 19:34 Magnesium 1.60 mg/dL (1.7-2.3) L 08/01/19 19:34 Urine Creatinine 13.6 mg/dL (0.1-20.0) 08/01/19 15:15 Urine Sodium 21 mmol/L 08/01/19 09:33 Medications & Allergies - Medications Allergies/Adverse Reactions: Allergies No Known Allergies Allergy (Unverified 08/01/19 09:00) Home Medications: Home Medications Medication Instructions Recorded Confirmed Last Taken Type Insulin Glargine [Lantus VIAL] 52 units IM DAILY 08/01/19 08/01/19 Unknown History Latuda 80 mg PO DAILY 08/01/19 08/01/19 Unknown History Metoprolol [Lopressor TAB] 25 mg PO DAILY 08/01/19 08/01/19 Unknown History OLANzapine [Zyprexa] 10 mg PO DAILY 08/01/19 08/01/19 Unknown History metFORMIN [Glucophage] 850 mg PO TID 08/01/19 08/01/19 Unknown History traZODone [Desyrel] 100 mg PO PRN 08/01/19 08/01/19 Unknown History Active Medications: Generic Name Dose Route Start Last Admin Trade Name Freq PRN Reason Stop Dose Admin Dextrose 0 ml 08/02/19 22:49 D50w (25gm) Syringe IV Q30MIN PRN Hypoglycemia Protocol Hydralazine HCl 10 mg 08/02/19 19:42 Apresoline IV Q4HR PRN Hypertension Sodium Chloride 1,000 mls @ 75 mls/hr 08/01/19 12:00 08/02/19 07:43 Nacl 0.9% 1000 Ml IV 125 mls/hr DIRECT LANG Administration Insulin Glargine 30 units 08/03/19 08:00 Lantus SUB-Q QDDIAB [facility] Insulin Human Lispro 0 unit 08/03/19 00:00 08/03/19 06:00 Humalog SUB-Q Not Given Q6HR [facility] Protocol Metformin HCl 850 mg 08/02/19 16:30 08/02/19 20:10 Glucophage PO Not Given TIDAC LANG Metoprolol Tartrate 50 mg 08/02/19 19:00 08/02/19 22:06 Metoprolol PO 50 mg BID LANG Administration Miscellaneous Medication 80 mg 08/03/19 22:00 Latuda PO QHS LANG Olanzapine 10 mg 08/03/19 10:00 Zyprexa PO DAILY LANG Sodium Chloride 10 ml 08/01/19 22:00 08/02/19 22:07 Sodium Chloride Flush Syringe 10 Ml IV 10 ml BID LANG Administration Sodium Chloride 10 ml 08/01/19 11:51 Sodium Chloride Flush Syringe 10 Ml IV PRN PRN LINE FLUSH Trazodone HCl 100 mg 08/03/19 22:00 Desyrel PO QHS LANG
[2019-08-03 07:53] LABS: BUN/Creatinine Ratio 12; Blood Urea Nitrogen 13 mg/dL (9-20); Calcium 8.7 mg/dL (8.4-10.2); Hemolysis Index 8
[2019-08-03] MEDS ORDERED: INSULIN GLARGINE 100 UNITS/ML SUB-Q SCH (08:00)
[2019-08-03] MEDS: METOPROLOL TARTRATE 25 MG TAB PO SCH (09:38)
[2019-08-03] MEDS ORDERED: methIMAzole 5 MG TAB PO SCH (10:00)
[2019-08-03] MEDS ORDERED: CYANOCOBALAMIN (VIT B-12) 1000 MCG TAB PO SCH (10:00)
--- NOTE | 2019-08-03 11:17 | Magnetic Resonance Report ---
MR brain wo con INDICATION / CLINICAL INFORMATION: 59 years Male; Hyperthyrodisim. TECHNIQUE: Multiplanar, multisequence MR images of the brain were obtained. COMPARISON: None available. FINDINGS: BRAIN / INTRACRANIAL CONTENTS: No acute hemorrhage, mass effect, midline shift, hydrocephalus, or acu te, large territorial infarct. No chronic infarct or atrophy. There are mild areas of increased signal intensity on FLAIR imaging in the white matter of the cerebr al hemispheres. These are nonspecific findings and may be related to microangiopathy (hypertension, d iabetes, atherosclerosis), given the patient's age. CRANIOCERVICAL JUNCTION: No significant abnormality. VASCULAR FLOW-VOIDS: No significant abnormality. ORBITS: No significant abnormality of visualized orbits. SINUSES / MASTOIDS: Minimal mucosal thickening seen in the ethmoids. ADDITIONAL FINDINGS: None. IMPRESSION: 1. No focal mass, hemorrhage, hydrocephalus, or acute ischemia. Signer Name: Curt Erazo MD, III Signed: 08/03/2019 11:13 AM Workstation Name: [id number]
[2019-08-03] MEDS: metFORMIN 850 MG TAB PO SCH ×2 (12:19)
--- NOTE | 2019-08-03 12:29 | Discharge Summary ---
Providers - Providers Date of Admission: 08/01/19 11:51 Attending physician: ADELA FOX MD 08/01/19 11:53 Consult to Physician [CONS] Routine Comment: Consulting Provider: GLADYS HARPER Physician Instructions: Reason For Exam: severe hyponatremia 08/01/19 11:54 Consult to Case Management [CONS] Routine Services Needed at Discharge: Race Steward Notified:: ss Phone number called:: [phone] Was contact made?: No Time called:: 08:13 Additional Physician Instructions: Discharge planning 08/02/19 11:27 Occupational Therapy Evaluate and Treat [CONS] Routine Comment: Reason For Exam: ataxia Physical Therapy Evaluation and Treat [CONS] Routine Comment: Reason For Exam: ataxia 08/02/19 11:29 Consult to Dietitian/Nutrition [CONS] Routine Physician Instructions: Reason For Exam: Reason for Consult: Malnutrition Primary care physician: AIDEN CARCAMO Hospitalization Reason for admission: Encephalopathy Condition: Stable Hospital course: 59 YO Male with HTN, DM presents to ED for evaluation. Pt is confused, and unable to provide history. Pt history is provided by family who is at bedside during exam and interview. per family, the patient has experienced increased weakness and confusion over the past 1 week with progressively worsening symptoms over the same time frame. Pt has developed progressive weakness and is currently unable to ambulate independently, and is bedbound. Pt transported to [facility] via private vehicle for further evaluation and care. Pt seen and evaluated in ED and found to be in distress. Pt is currently minimally verbal, confused, and does not respond when his name is called. * On admission pt is unable to track and follow commands. Pt has 90% decrease in all oral intake over the past 1-2 weeks. Pt found to have Severe Hyponatremia complicated by Metabolic Encephalopathy. * Pt currently requires 6/6 assistance with activities of daily living and requires verbal prompting and redirection with all activities, and has diminished gag reflex and is at risk for aspiration. Pt is unable to maintain a seated position in bed without slumping over. * Pt requires assistance with repositioning in bed. Pt has GCS of 12. Pt admitted to [facility] and treated with supportive care due to high likelihood of clinical decompensation and worsening of the aforementioned symptoms. Nephrolo gy consulted in ED. No further history obtainable. No prior admission for review. All medication listed at time of admission have been reconciled. * Discussed with family the report of the patient has a mental condition and has been having overflow incontinence which is improved at this time. They understand that the patient has a new diagnosis of hyperthyroidism. There will also be following with the patient's primary care physician for further management. MRI of the head was unremarkable Acute metabolic encephalopathy secondary to hyponatremia Adult failure to thrive Hyperthyroidism Severe hyponatremia resolved Diabetes mellitus Anemia DM with Hyperglycemia Hypertensive urgency Gastroenteritis Schizophrenia Overflow incontinence Disposition: - TO HOME OR SELFCARE Time spent for discharge: 35-minute Core Measure Documentation - Palliative Care Palliative Care/ Comfort Measures: Not Applicable - Core Measures Any of the following diagnoses?: none Exam - Physical Exam Narrative exam: VITAL SIGNS: Reviewed. GENERAL: The patient appears normally developed, responds only to family vital signs as documented. HEAD: No signs of head trauma. EYES: Pupils are equal. Extraocular motions intact. EARS: Hearing grossly intact. MOUTH: Oropharynx is normal. NECK: No adenopathy, no JVD. CHEST: Chest with clear breath sounds bilaterally. No wheezes, rales, or rhonchi. CARDIAC: Regular rate and rhythm. S1 and S2, without murmurs, gallops, or rubs. VASCULAR: No Edema. Peripheral pulses normal and equal in all extremities. ABDOMEN: Soft, non tender and non distended. No rebound or guarding, and no masses palpated. Bowel Sounds normal. MUSCULOSKELETAL: Good range of motion of all major joints. Extremities without clubbing, cyanosis or edema. NEUROLOGIC EXAM: Alert and oriented x 2 No focal sensory or strength deficits. Speech normal. Follows commands. PSYCHIATRIC: Mood normal. SKIN: detail exam as documented in skin assessment - Constitutional Vitals: Temp Pulse Resp BP Pulse Ox 97.7 F 81 20 147/57 97 08/03/19 04:29 08/03/19 04:29 08/03/19 04:29 08/03/19 04:29 08/03/19 04:29 Plan Activity: advance as tolerated, fall precautions Diet: low fat, diabetic Special Instructions: record daily BP diary, record blood sugar diary Additional Instructions: check tsh, free t4 in 6 week Follow up with: AIDEN CARCAMO MD [Primary Care Provider] - 3-5 Days SARAH BACA MD [Staff Physician] - 7 Days KE AGUILAR MD [Referring] - 7 Days Prescriptions: methIMAzole [Tapazole] 15 mg PO Q24HR #30 tablet Cyanocobalamin [Vitamin B-12] 2,000 mcg PO QDAY #30 tablet
[2019-08-03 12:37] VITALS: BP 172/89
--- NOTE | 2019-08-03 15:48 | Ultrasound Report ---
ULTRASOUND THYROID INDICATION / CLINICAL INFORMATION: hyperthyroidism. COMPARISON: None available. FINDINGS: RIGHT LOBE: Size = 4.6 x 1.1 x 2.0 cm. - Echogenicity: Normal. - Nodules < 1 cm: None. - Nodules >= 1 cm or Suspicious Nodules: None. LEFT LOBE: Size = 5.5 x 2.3 x 4.5 cm. - Echogenicity: Heterogeneous. - Nodules < 1 cm: Numerous subcentimeter solid nodules are present. - Nodules >= 1 cm or Suspicious Nodules: -- NODULE # 1 -- Location: left mid -- Size: 3.6 x 2.0 x 2.0 cm. Average size = 2.5 cm. -- Composition: Solid = 2 points -- Echogenicity: Hyperechoic or Isoechoic = 1 point -- Shape: [id number] = 0 points -- Margin: Lobulated or Irregular = 2 points -- Echogenic Foci: None = 0 points -- Additional Findings: None. -- ACR TI-RADS Score = 5. -- ACR TI-RADS Category = TR-4 (4-6 points). ISTHMUS: No significant abnormality. Thickness = 0.1 cm. - Nodules < 1 cm: None. - Nodules >= 1 cm or Suspicious Nodules: None. LYMPH NODES: No abnormal lymph nodes. PARATHYROID GLANDS: No abnormal parathyroid gland identified. ADDITIONAL FINDINGS: None. IMPRESSION: Multinodular left thyroid lobe including a dominant nodule described above. FNA biopsy of the dominan t nodule is recommended. NOTE: Nodule size based on mean (average) size of 3 dimensions. NOTE: Nodules < 1 cm do not typically require follow-up or FNA unless there are suspicious features ( SIDNEY, 2015) ACR TI-RADS Thyroid Nodule Recommendations TI-RADS 1 (0 points) ----- BENIGN. No Fine Needle Aspirate biopsy (FNA) or follow-up. TI-RADS 2 (1-2 points) -- NOT SUSPICIOUS. No FNA or follow-up. TI-RADS 3 (3 points) ----- MILDLY SUSPICIOUS. Follow up in 1 year if >= 1.5 cm. FNA if >= 2.5 cm. TI-RADS 4 (4-6 points) -- MODERATELY SUSPICIOUS. Follow up in 1 year if >= 1.0 cm. FNA if >= 1.5 cm. TI-RADS 5 (7+ points) --- HIGHLY SUSPICIOUS. Follow up in 1 year if >= 0.5 cm. FNA if >= 1.0 cm. Signer Name: Juan J Stevens MD Signed: 08/03/2019 3:44 PM Workstation Name: [id number]
[2019-08-03] MEDS ORDERED: LATUDA 80 MG PO SCH (22:00)
[2019-08-03] MEDS ORDERED: traZODone 100 MG TAB PO SCH (22:00)
== END 2019-08-03 17:15 | disposition home or self-care (01) | DRG 640 ==
LOC: ED 08:53 → IMCU 11:51 → CC1 16:34 → 3A 08-02 14:55
PROVIDERS: ADMIT Internal Medicine; ATTEND Internal Medicine
DX: E87.1 Hypo-osmolality and hyponatremia (principal); G93.41 Metabolic encephalopathy; I16.0 Hypertensive urgency; E11.65 Type 2 diabetes mellitus with hyperglycemia; I10 Essential (primary) hypertension; E86.9 Volume depletion, unspecified; D64.9 Anemia, unspecified; E05.90 Thyrotoxicosis, unspecified without thyrotoxic crisis or storm; N39.490 Overflow incontinence; K52.9 Noninfective gastroenteritis and colitis, unspecified; R62.7 Adult failure to thrive; Z79.4 Long term (current) use of insulin; Z68.26 Body mass index [BMI] 26.0-26.9, adult; Z79.84 Long term (current) use of oral hypoglycemic drugs
CPT/HCPCS: 36415; 70450; 70551; 76536; 80048; 80053; 80307; 81001; 82570; 82607; 82747; 82962; 83735; 83930; 83935; 84100; 84300; 84439; 84443; 84550; 85025; 96374; G0378; J1200; J1815; J2405; J3246; J3475; J7030

== ENCOUNTER 2019-08-21 18:30 | Inpatient (IN) | payer MEDICAID ==
[2019-08-21] MEDS ORDERED: levETIRAcetam 1000 MG/NS 0.75% 1,000 MG/100 ML BAG IV ONE (19:44)
[2019-08-21] MEDS ORDERED: SODIUM CHLORIDE 0.9% 1000 ML 1,000 ML IV ONE ×2 (19:44→21:20)
--- NOTE | 2019-08-21 20:55 | Cat Scan Report ---
CT head/brain wo con INDICATION: Onset of seizures. TECHNIQUE: Routine CT head without contrast. All CT scans at this location are performed using CT dos e reduction for ALARA by means of automated exposure control. COMPARISON: Brain MRI 08/03/[address] scan 08/01/2019 FINDINGS: BRAIN / INTRACRANIAL CONTENTS: No acute hemorrhage, mass effect, midline shift, or hydrocephalus. No appreciable acute large territorial or lacunar infarct. No chronic infarct or focal atrophy. Normal b rain volume and ventricular/sulcal size for age. ORBITS: No significant abnormality of visualized orbits. SINUSES / MASTOIDS: No significant abnormality of visualized sinuses and mastoid air cells. ADDITIONAL FINDINGS: None. IMPRESSION: 1. No acute abnormality or significant change from 08/01/2019 Signer Name: Solitario Casiano MD Signed: 08/21/2019 8:51 PM Workstation Name: [id number]
[2019-08-21 20:59] LABS: Eosinophils % (Auto) 0.1 % (0.0-4.3); Monocytes # (Auto) 0.5 K/mm3 (0.0-0.8); Monocytes % (Auto) 4.7 % (0.0-7.3)
[2019-08-21 21:08] LABS: Calcium 8.3 mg/dL (8.4-10.2)
[2019-08-21 21:43] LABS: Mean Corpuscular HGB Conc 35 % (32-34)
[2019-08-21 21:44] LABS: Basophils % (Auto) 0.3 % (0.0-1.8); Hematocrit 27.3 % (35.5-45.6); Hemoglobin 10.4 gm/dl (11.8-15.2); Lymphocytes % (Auto) 13.5 % (13.4-35.0); Mean Corpuscular Volume 79 fl (84-94); Platelet Count 544 K/mm3 (140-440); Red Blood Count 3.46 M/mm3 (3.65-5.03); Red Cell Distribution Width 13.2 % (13.2-15.2)
[2019-08-21 21:45] LABS: Lymphocytes # (Auto) 1.3 K/mm3 (1.2-5.4)
--- NOTE | 2019-08-21 22:24 | Emergency Department Report ---
ED Seizure HPI - General Chief Complaint: Seizure Stated Complaint: POSS SZ Time Seen by Provider: 08/21/19 19:44 Source: patient Mode of arrival: Ambulatory Limitations: No Limitations - History of Present Illness Initial Comments: Patient is a 59-year-old Syrian gentleman with a past medical history of developmental delay who had a seizure today. Patient was noted to have tonic- clonic movements while lying in a hammock. There is no trauma, there was observed. Family states that he does not drink alcohol and has not been drinking water excessively. family states they've not noticed any fever. - Related Data Home Medications Medication Instructions Recorded Confirmed Last Taken Insulin Glargine [Lantus VIAL] 52 units IM DAILY 08/01/19 08/01/19 Unknown Latuda 80 mg PO DAILY 08/01/19 08/01/19 Unknown Metoprolol [Lopressor TAB] 25 mg PO DAILY 08/01/19 08/01/19 Unknown OLANzapine [Zyprexa] 10 mg PO DAILY 08/01/19 08/01/19 Unknown metFORMIN [Glucophage] 850 mg PO TID 08/01/19 08/01/19 Unknown traZODone [Desyrel] 100 mg PO PRN 08/01/19 08/01/19 Unknown Previous Rx's Medication Instructions Recorded Last Taken Type Cyanocobalamin [Vitamin B-12] 2,000 mcg PO QDAY #30 tablet 08/03/19 Unknown Rx methIMAzole [Tapazole] 15 mg PO Q24HR #30 tablet 08/03/19 Unknown Rx Allergies Allergy/AdvReac Type Severity Reaction Status Date / Time No Known Allergies Allergy Unverified 08/01/19 09:00 ED Review of Systems ROS: Stated complaint: POSS SZ Other details as noted in HPI Comment: All other systems reviewed and negative ED Past Medical Hx - Past Medical History Previous Medical History?: Yes Hx Hypertension: Yes Hx Heart Attack/AMI: No Hx Congestive Heart Failure: No Hx Diabetes: Yes Hx Deep Vein Thrombosis: No Hx Liver Disease: No Hx Seizures: No Hx Asthma: No Hx COPD: No Hx Dementia: No Additional medical history: Mentally Challenged - Surgical History Past Surgical History?: No Hx Coronary Stent: No Hx Pacemaker: No Hx Internal Defibrillator: No - Social History Smoking Status: Never Smoker Substance Use Type: None - Medications Home Medications: Home Medications Medication Instructions Recorded Confirmed Last Taken Type Insulin Glargine [Lantus VIAL] 52 units IM DAILY 08/01/19 08/01/19 Unknown History Latuda 80 mg PO DAILY 08/01/19 08/01/19 Unknown History Metoprolol [Lopressor TAB] 25 mg PO DAILY 08/01/19 08/01/19 Unknown History OLANzapine [Zyprexa] 10 mg PO DAILY 08/01/19 08/01/19 Unknown History metFORMIN [Glucophage] 850 mg PO TID 08/01/19 08/01/19 Unknown History traZODone [Desyrel] 100 mg PO PRN 08/01/19 08/01/19 Unknown History Cyanocobalamin [Vitamin B-12] 2,000 mcg PO QDAY #30 tablet 08/03/19 Unknown Rx methIMAzole [Tapazole] 15 mg PO Q24HR #30 tablet 08/03/19 Unknown Rx ED Physical Exam - General Limitations: No Limitations General appearance: alert, in no apparent distress, other (patient is nonverbal at baseline but family states he appears to be at his normal state) - Head Head exam: Present: atraumatic, normocephalic - Eye Eye exam: Present: normal appearance - ENT ENT exam: Present: mucous membranes moist - Neck Neck exam: Present: normal inspection - Respiratory Respiratory exam: Present: normal lung sounds bilaterally. Absent: respiratory distress, wheezes, rales, rhonchi - Cardiovascular Cardiovascular Exam: Present: regular rate, normal rhythm, normal heart sounds. Absent: systolic murmur, diastolic murmur, rubs, gallop - GI/Abdominal GI/Abdominal exam: Present: soft, normal bowel sounds. Absent: distended, tenderness, guarding, rebound - Rectal Rectal exam: Present: deferred - Extremities Exam Extremities exam: Present: normal inspection - Back Exam Back exam: Present: normal inspection - Neurological Exam Neurological exam: Present: alert, altered. Absent: motor sensory deficit - Psychiatric Psychiatric exam: Present: normal affect, normal mood - Skin Skin exam: Present: warm, dry, intact, normal color. Absent: rash ED Course Vital Signs 08/21/19 19:56 Temperature 97.9 F Pulse Rate 98 H Respiratory 20 Rate Blood Pressure 157/77 O2 Sat by Pulse 98 Oximetry ED Medical Decision Making - Lab Data Result diagrams: 08/21/19 20:50 08/21/19 20:50 Lab Results 08/21/19 08/21/19 Range/Units 20:50 20:50 WBC 9.5 (4.5-11.0) K/mm3 RBC 3.46 L (3.65-5.03) M/mm3 Hgb 10.4 L (11.8-15.2) gm/dl Hct 27.3 L (35.5-45.6) % MCV 79 L (84-94) fl MCH 30 (28-32) pg MCHC 35 H (32-34) % RDW 13.2 (13.2-15.2) % Plt Count 544 H (140-440) K/mm3 Lymph % (Auto) 13.5 (13.4-35.0) % [place] % (Auto) 4.7 (0.0-7.3) % Eos % (Auto) 0.1 (0.0-4.3) % Baso % (Auto) 0.3 (0.0-1.8) % Lymph # 1.3 (1.2-5.4) K/mm3 [place] # 0.5 (0.0-0.8) K/mm3 Eos # 0.0 (0.0-0.4) K/mm3 Baso # 0.0 (0.0-0.1) K/mm3 Seg Neutrophils % 81.4 H (40.0-70.0) % Seg Neutrophils # 7.8 H (1.8-7.7) K/mm3 Sodium 109 L* (137-145) mmol/L Potassium 4.2 (3.6-5.0) mmol/L Chloride 73.6 L (98-107) mmol/L Carbon Dioxide 21 L (22-30) mmol/L Anion Gap 19 mmol/L BUN 14 (9-20) mg/dL Creatinine 1.4 (0.8-1.5) mg/dL Estimated GFR 52 ml/min BUN/Creatinine Ratio 10 % Glucose 192 H (75-100) mg/dL Calcium 8.3 L (8.4-10.2) mg/dL - Medical Decision Making Patient is a 59-year-old Syrian gentleman who is status post seizure. Review of the patient's laboratory studies his sodium level is 109. Patient was given 2 L of normal saline initially. Patient will be admitted to the ospitalist service. Consult is been placed to nephrology concerning giving hypertonic saline. Critical care attestation.: If time is entered above; I have spent that time in minutes in the direct care of this critically ill patient, excluding procedure time. ED Disposition Clinical Impression: Hypernatremia, New onset seizure Disposition: OP ADMIT IP TO THIS HOSP Is pt being admited?: Yes Does the pt Need Aspirin: No Condition: Stable Referrals: AIDEN CARCAMO MD [Primary Care Provider] - 3-5 Days Time of Disposition: 22:26
[2019-08-21] MEDS ORDERED: SODIUM CHLORIDE 0.9% 1000 ML 1,000 ML IV SCH (22:45)
[2019-08-21] MEDS ORDERED: DEXTROSE 50% IN WATER (25GM) 50 ML SYRINGE IV PRN (23:14)
--- NOTE | 2019-08-21 23:16 | History and Physical Report ---
History of Present Illness History of present illness: History is per the niece at bedside. 59-year-old man history of hypertension, diabetes, hyperlipidemia psych disorder was brought to the emergency room because he fell out of a hammock today shortly after started having a seizure. He was brought to the emergency room for evaluation, given IV Ativan and is now sedated. Patient was here 2 weeks ago and he was evaluated also for hyponatre cosme. He still denies excessive drinking of water, review of system is unobtainable PAST MEDICAL HISTORY:hypertension, diabetes, hyperlipidemia, psych disorder PAST SURGICAL HISTORY:None FAMILY HISTORY:hypertension, diabetes SOCIAL HISTORY: no tobacco, no drugs, alcohol Medications and Allergies Allergies Allergy/AdvReac Type Severity Reaction Status Date / Time No Known Allergies Allergy Unverified 08/01/19 09:00 Home Medications Medication Instructions Recorded Confirmed Last Taken Type Insulin Glargine [Lantus VIAL] 52 units IM DAILY 08/01/19 08/21/19 Unknown History Latuda 80 mg PO DAILY 08/01/19 08/21/19 Unknown History Metoprolol [Lopressor TAB] 25 mg PO DAILY 08/01/19 08/21/19 Unknown History OLANzapine [Zyprexa] 10 mg PO DAILY 08/01/19 08/21/19 Unknown History metFORMIN [Glucophage] 850 mg PO TID 08/01/19 08/21/19 Unknown History traZODone [Desyrel] 100 mg PO PRN 08/01/19 08/21/19 Unknown History Cyanocobalamin [Vitamin B-12] 2,000 mcg PO QDAY #30 tablet 08/03/19 08/21/19 Unknown Rx methIMAzole [Tapazole] 15 mg PO Q24HR #30 tablet 08/03/19 08/21/19 Unknown Rx Active Meds: Active Medications Dextrose (D50w (25gm) Syringe) 50 ml IV Q30MIN PRN; Protocol PRN Reason: Hypoglycemia Enoxaparin Sodium (Enoxaparin) 30 mg SUB-Q QDAY LANG Sodium Chloride (Nacl 0.9% 1000 Ml) 1,000 mls @ 150 mls/hr IV DIRECT LANG Insulin Human Lispro (Humalog) 0 unit SUB-Q Q4HR LANG; Protocol Exam - Physical Exam Narrative exam: Gen. appearance: Patient lying in bed, no apparent distress HEENT: Normocephalic, atraumatic, pupils equally round and reactive to light, unable to do extraocular movement intact, and no sclericterus,. No JVD or thyromegaly or nodule,neck supple, no carotid bruit ,mucous membranes moist, unable to examine oral cavity Heart: S1, S2, regular rate and rhythm Lungs: Clear to auscultation bilaterally, breathing comfortable Abdomen: Positive bowel sounds, nontender, nondistended, no organomegaly Extremity: No edema, cyanosis, clubbing Skin: No rash, nodules, warm, dry Neuro: Sedated - Constitutional Vitals: Temp Pulse Resp BP Pulse Ox 97.9 F 98 H 18 157/77 98 08/21/19 19:56 08/21/19 19:56 08/21/19 23:03 08/21/19 19:56 08/21/19 19:56 Results - Labs CBC & Chem 7: 08/22/19 03:13 08/22/19 05:57 Labs: Abnormal lab results 08/21/19 08/21/19 Range/Units 20:50 20:50 RBC 3.46 L (3.65-5.03) M/mm3 Hgb 10.4 L (11.8-15.2) gm/dl Hct 27.3 L (35.5-45.6) % MCV 79 L (84-94) fl MCHC 35 H (32-34) % Plt Count 544 H (140-440) K/mm3 Seg Neutrophils % 81.4 H (40.0-70.0) % Seg Neutrophils # 7.8 H (1.8-7.7) K/mm3 Sodium 109 L* (137-145) mmol/L Chloride 73.6 L (98-107) mmol/L Carbon Dioxide 21 L (22-30) mmol/L Glucose 192 H (75-100) mg/dL Calcium 8.3 L (8.4-10.2) mg/dL - Imaging and Cardiology CT Scan - head: report reviewed Assessment and Plan Assessment New onset seizure secondary to hyponatremia correct Hyponatremia Severe hyponatremia Continue IV fluid but at 50cc/h Monitor serial chemistries Nephrology was consulted to see the patient Diabetes Check fingersticks insulin sliding scale Hypertension IV hydralazine as needed for blood pressure control DVT prophylaxis
[2019-08-21 23:37] LABS: Calcium 7.6 mg/dL (8.4-10.2)
[2019-08-22] MEDS ORDERED: SODIUM CHLORIDE 0.9% 1000 ML 1,000 ML ONE (00:05)
[2019-08-22] MEDS ORDERED: SODIUM CHLORIDE 0.9% 1000 ML 1,000 ML IV SCH (00:30)
[2019-08-22] MEDS ORDERED: ONDANSETRON 4 MG/2 ML INJ IV PRN (00:31)
[2019-08-22] MEDS ORDERED: ACETAMINOPHEN 650 MG RECT SUPP PR PRN (00:31)
[2019-08-22] MEDS: INSULIN LISPRO 100 UNIT/ML SUB-Q SCH ×6 (03:52→22:13)
[2019-08-22 03:57] LABS: Basophils # (Auto) 0.1 K/mm3 (0.0-0.1); Eosinophils # (Auto) 0.1 K/mm3 (0.0-0.4); Eosinophils % (Auto) 1.1 % (0.0-4.3); Monocytes # (Auto) 0.9 K/mm3 (0.0-0.8); Monocytes % (Auto) 10.6 % (0.0-7.3)
[2019-08-22 04:09] LABS: BUN/Creatinine Ratio 10; Blood Urea Nitrogen 12 mg/dL (9-20); Calcium 8.1 mg/dL (8.4-10.2); Hemolysis Index 3
[2019-08-22 04:23] LABS: Basophils % (Auto) 0.8 % (0.0-1.8); Hematocrit 28.9 % (35.5-45.6); Hemoglobin 10.4 gm/dl (11.8-15.2); Lymphocytes # (Auto) 1.8 K/mm3 (1.2-5.4); Mean Corpuscular HGB Conc 36 % (32-34); Mean Corpuscular Volume 81 fl (84-94); Red Blood Count 3.58 M/mm3 (3.65-5.03); Red Cell Distribution Width 12.9 % (13.2-15.2)
[2019-08-22 04:25] LABS: Platelet Count 595 K/mm3 (140-440)
[2019-08-22 06:32] LABS: Calcium 8.1 mg/dL (8.4-10.2)
--- NOTE | 2019-08-22 09:52 | Consultation ---
History of Present Illness - History of Present Illness My assessment and plan are as follows moderately severe hyponatremia: Patient has been admitted here with seizure disorder was given IV fluid resulting in somewhat rapid correction of sodium that needs to be monitored, at this time will be to keep his sodium less than 115 for now and possibly tomorrow around 122 Suggest slow correction of the sodium Will need IV fluid mostly in the form of D5 with close follow-up on the sodium level, goal will be to drop his sodium for now will need to do BMP every 4 hours patient may need to stay off trazodone which can cause hyponatremian, OK to use latuda from renal standpoint as it does not cause hyponatremia generally Patient needs strict intake and output monitoring May need DDAVP given the sodium fails to correct Check osmolality for now as well as sodium more frequently possibly every 4-6 hours Mild metabolic acidosis currently stable around 20 No evidence of hyperkalemia proteinuria needs follow-up in outpatient setting Mild anemia: Being followed by primary team Prognosis remains guarded at this time, renal care plan was discussed with patient's family member at the bedside We'll continue to follow and make recommendation from renal standpoint If you have any questions please feel free to contact me at [phone] Keon Dupont M.D. [facility] [address] [place] [address] History of presenting illness Patient is a 59-year-old male who was admitted here with severe hyponatremia in the setting of seizure disorder, patient was given IV fluid boluses and an r esult this morning his sodium is around 125 which is, higher than we would expect as far as correction rate is concerned which should be between 6-8 MDQ per day.nephrology consultation has been requested due to hyponatremia and rising sodium level I did call the language line and communicated with patient's family member at the bedside patient is unable to provide any history Patient does have history of seizure disorder and has been on antipsychotic drug as well as antidepressant one of which is trazodone which can cause hyponatremia Past medical history significant for Developmental delay Diabetes mellitus Hyperlipidemia Hypertension Patient has been treated with antipsychotic drugs Current allergies: Reviewed Home medication: Present medication: Reviewed Social history, family history: Reviewed from the chart Review of systems Limited due to developmental delay, and seizure disorder Physical examination: General: No acute distress HEENT: Oral mucosa appears to be dry no icterus, no facial swelling Neck: Supple no thyromegaly no lymphadenopathy no JVD Chest: Clear to auscultation no crackles rales or wheezes Heart: Regular rate and rhythm S1-S2 heard no S3-S4 Abdomen: Soft nontender no organomegaly no masses palpable no renal bruit no suprapubic masses no CVA tenderness Dermatology: No skin rashes noted, skin turgor appears to be reduced Extremity: no edema, ry skin no petechial rashes Musculoskeletal: No joint effusion noted in knee and ankle area Psych: No evidence of agitation and aggression noted Neurological: Alert awake no tremors no myoclonus Back: No CVA tenderness Medications and Allergies Allergies Allergy/AdvReac Type Severity Reaction Status Date / Time No Known Allergies Allergy Unverified 08/01/19 09:00 Home Medications Medication Instructions Recorded Confirmed Last Taken Type Insulin Glargine [Lantus VIAL] 52 units IM DAILY 08/01/19 08/21/19 Unknown History Latuda 80 mg PO DAILY 08/01/19 08/21/19 Unknown History Metoprolol [Lopressor TAB] 25 mg PO DAILY 08/01/19 08/21/19 Unknown History OLANzapine [Zyprexa] 10 mg PO DAILY 08/01/19 08/21/19 Unknown History metFORMIN [Glucophage] 850 mg PO TID 08/01/19 08/21/19 Unknown History traZODone [Desyrel] 100 mg PO PRN 08/01/19 08/21/19 Unknown History Cyanocobalamin [Vitamin B-12] 2,000 mcg PO QDAY #30 tablet 08/03/19 08/21/19 Unknown Rx methIMAzole [Tapazole] 15 mg PO Q24HR #30 tablet 08/03/19 08/21/19 Unknown Rx Active Meds: Active Medications Acetaminophen (Tylenol) 650 mg PO Q4H PRN PRN Reason: Pain MILD(1-3)/Fever >100.5/BAER Acetaminophen (Tylenol) 650 mg [place] Q4H PRN PRN Reason: Pain MILD(1-3)/Fever >100.5/BAER Dextrose (D50w (25gm) Syringe) 50 ml IV Q30MIN PRN; Protocol PRN Reason: Hypoglycemia Enoxaparin Sodium (Enoxaparin) 40 mg SUB-Q QDAY@1000 LANG Potassium Chloride 20 meq/ (Dextrose) 1,010 mls @ 250 mls/hr IV DIRECT LANG Insulin Human Lispro (Humalog) 0 unit SUB-Q Q4HR [facility]; Protocol Last Admin: 08/22/19 06:50 Dose: Not Given Documented by: Ondansetron HCl (Zofran) 4 mg IV Q8H PRN PRN Reason: Nausea And Vomiting Sodium Chloride (Sodium Chloride Flush Syringe 10 Ml) 10 ml IV BID LANG Sodium Chloride (Sodium Chloride Flush Syringe 10 Ml) 10 ml IV PRN PRN PRN Reason: LINE FLUSH Exam - Vital Signs Vital signs: Vital Signs Temp Pulse Resp BP Pulse Ox 97.9 F 98 H 20 157/77 98 08/21/19 19:56 08/21/19 19:56 08/21/19 19:56 08/21/19 19:56 08/21/19 19:56 Results - Lab Results 08/22/19 03:13 08/23/19 04:07 Most recent lab results Calcium 8.1 mg/dL (8.4-10.2) L 08/22/19 05:57
[2019-08-22] MEDS ORDERED: DEXTROSE 5% IN WATER 1,000 ML with POTASSIUM CHLORIDE 20 MEQ IV SCH (10:00)
[2019-08-22] MEDS ORDERED: ENOXAPARIN 30 MG/0.3 ML INJ SUB-Q SCH (10:00)
--- NOTE | 2019-08-22 11:03 | Progress Note ---
Assessment and Plan Assessment and plan: 59-year-old man history of hypertension, diabetes, hyperlipidemia psych disorder was brought to the emergency room because he fell out of a hammock today shortly after started having a seizure. He was brought to the emergency room for evaluation, given IV Ativan and is now sedated. Patient was here 2 weeks ago and he was evaluated also for hyponatremia. He still denies excessive drinking of water, review of system is unobtainable * Patient was recently admitted with same condition, at the time also was diagnosed with hyperthyroidism and started on treatment. Imaging studies of head including MRI was unremarkable, New onset seizure secondary to hyponatremia correct Hyponatremia Severe hyponatremia Continue IV fluid but at 50cc/h-ADJUSTED PER NEPHROLOGY Monitor serial chemistries Nephrology was consulted to see the patient Acute metabolic encephalopathy secondary to hyponatremia Gastritis with persistent nausea with vomiting Diabetes Check fingersticks insulin sliding scale Hyperthyroidism Anemia Schizophrenia Psych consult Hypertension IV hydralazine as needed for blood pressure control DVT prophylaxis The high probability of a clinically significant, sudden or life threatening deterioration of the [MENTAL, ENDIOCRINE] system(s) required my full and direct attention, intervention and personal management. The aggregate critical care time was [35] minutes. This time is in addition to time spent performing reported procedures but includes the following: [X] Data Review and interpretation [X] Patient assessment and monitoring of vital signs [X] Documentation [X] Medication orders and management History Interval history: Patient seen and examined, awake alert but not engaging. Although stretches out on the bed, often goes back to position Hospitalist Physical - Physical exam Narrative exam: Gen. appearance: Patient lying in bed, no apparent distress HEENT: Normocephalic, atraumatic, pupils equally round and reactive to light, unable to do extraocular movement intact, and no sclericterus,. No JVD or thyromegaly or nodule,neck supple, no carotid bruit ,mucous membranes moist, unable to examine oral cavity Heart: S1, S2, regular rate and rhythm Lungs: Clear to auscultation bilaterally, breathing comfortable Abdomen: Positive bowel sounds, nontender, nondistended, no organomegaly Extremity: No edema, cyanosis, clubbing Skin: No rash, nodules, warm, dry Neuro: awake, moves all extremity - Constitutional Vitals: Temp Pulse Resp BP Pulse Ox 98.2 F 93 H 14 139/69 97 08/22/19 02:00 08/22/19 05:01 08/22/19 05:01 08/22/19 05:01 08/22/19 05:01 Results - Labs CBC & Chem 7: 08/22/19 03:13 08/23/19 04:07 Labs: Laboratory Last Values WBC 8.8 K/mm3 (4.5-11.0) 08/22/19 03:13 RBC 3.58 M/mm3 (3.65-5.03) L 08/22/19 03:13 Hgb 10.4 gm/dl (11.8-15.2) L 08/22/19 03:13 Hct 28.9 % (35.5-45.6) L 08/22/19 03:13 MCV 81 fl (84-94) L 08/22/19 03:13 MCH 29 pg (28-32) 08/22/19 03:13 MCHC 36 % (32-34) H 08/22/19 03:13 RDW 12.9 % (13.2-15.2) L 08/22/19 03:13 Plt Count 595 K/mm3 (140-440) H 08/22/19 03:13 Lymph % (Auto) 21.0 % (13.4-35.0) 08/22/19 03:13 [place] % (Auto) 10.6 % (0.0-7.3) H 08/22/19 03:13 Eos % (Auto) 1.1 % (0.0-4.3) 08/22/19 03:13 Baso % (Auto) 0.8 % (0.0-1.8) 08/22/19 03:13 Lymph # 1.8 K/mm3 (1.2-5.4) 08/22/19 03:13 [place] # 0.9 K/mm3 (0.0-0.8) H 08/22/19 03:13 Eos # 0.1 K/mm3 (0.0-0.4) 08/22/19 03:13 Baso # 0.1 K/mm3 (0.0-0.1) 08/22/19 03:13 Add Manual Diff Complete 08/22/19 03:13 Seg Neutrophils % 67.4 % (40.0-70.0) 08/22/19 03:13 Seg Neutrophils # 6.0 K/mm3 (1.8-7.7) 08/22/19 03:13 Sodium 125 mmol/L (137-145) L 08/22/19 05:57 Potassium 3.9 mmol/L (3.6-5.0) 08/22/19 05:57 Chloride 89.8 mmol/L (98-107) L 08/22/19 05:57 Carbon Dioxide 20 mmol/L (22-30) L 08/22/19 05:57 Anion Gap 19 mmol/L 08/22/19 05:57 BUN 11 mg/dL (9-20) 08/22/19 05:57 Creatinine 1.3 mg/dL (0.8-1.5) 08/22/19 05:57 Estimated GFR 57 ml/min 08/22/19 05:57 BUN/Creatinine Ratio 8 % 08/22/19 05:57 Glucose 124 mg/dL (75-100) H 08/22/19 05:57 POC Glucose 101 (70-105) 08/22/19 03:59 Calcium 8.1 mg/dL (8.4-10.2) L 08/22/19 05:57 Plasma/Serum Alcohol < 0.01 % (0-0.07) 08/21/19 22:34 Active Medications - Current Medications Current Medications: Generic Name Dose Route Start Last Admin Trade Name Freq PRN Reason Stop Dose Admin Acetaminophen 650 mg 08/22/19 00:31 Tylenol PO Q4H PRN Pain MILD(1-3)/Fever >100.5/BAER Acetaminophen 650 mg 08/22/19 00:31 Tylenol [place] Q4H PRN Pain MILD(1-3)/Fever >100.5/BAER Cyanocobalamin 2,000 mcg 08/23/19 10:00 Vitamin B-12 PO QDAY LANG Dextrose 50 ml 08/21/19 23:14 D50w (25gm) Syringe IV Q30MIN PRN Hypoglycemia Protocol Enoxaparin Sodium 40 mg 08/22/19 10:00 Enoxaparin SUB-Q QDAY@1000 LANG Potassium Chloride 20 meq/ 1,010 mls @ 250 mls/hr 08/22/19 10:00 Dextrose IV DIRECT LANG Insulin Glargine 30 units 08/23/19 10:00 Lantus SUB-Q DAILY LANG Insulin Human Lispro 0 unit 08/22/19 02:00 08/22/19 10:08 Humalog SUB-Q Not Given Q4HR [facility] Protocol Methimazole 15 mg 08/23/19 10:00 Tapazole PO Q24HR [facility] Metoprolol Tartrate 25 mg 08/23/19 10:00 Metoprolol PO DAILY [facility] Olanzapine 10 mg 08/23/19 10:00 Zyprexa PO DAILY [facility] Ondansetron HCl 4 mg 08/22/19 00:31 Zofran IV Q8H PRN Nausea And Vomiting Sodium Chloride 10 ml 08/22/19 10:00 Sodium Chloride Flush Syringe 10 Ml IV BID LANG Sodium Chloride 10 ml 08/22/19 00:31 Sodium Chloride Flush Syringe 10 Ml IV PRN PRN LINE FLUSH Trazodone HCl 100 mg 08/22/19 12:00 Desyrel PO PRN LANG
[2019-08-22 11:18] LABS: BUN/Creatinine Ratio 9; Blood Urea Nitrogen 11 mg/dL (9-20); Calcium 8.5 mg/dL (8.4-10.2); Hemolysis Index 7
[2019-08-22] MEDS ORDERED: ENOXAPARIN 40 MG/0.4 ML INJ SUB-Q ONE (11:34)
[2019-08-22] MEDS: ENOXAPARIN 40 MG/0.4 ML INJ SUB-Q SCH (11:38)
[2019-08-22] MEDS ORDERED: traZODone 100 MG TAB PO SCH (12:00)
--- NOTE | 2019-08-22 14:21 | Gastroenterology Consultation ---
<CHAPIS CLIFFORD - Last Filed: 08/22/19 14:37> History of Present Illness - Reason for Consult Consult date: 08/22/19 N/V Requesting physician: ADELA FOX - History of Present Illness Patient is a 59 y/o [place] male with PMH of HTN, DM, HLD, anemia, hyperthyroidism, developmental delay, psych disorder (schizophrenia?), and failure to thrive who was brought to ED per family s/p possible seizure at home. Upon admission, he was found to have severe hyponatremia to which he was admitted. Nephrology following. GI has been consulted for N/V. This afternoon patient was resting in bed w/o acute distress. Family at bedside who assisted w ith providing history however noted to be poor historian's with limited information given. Family reports N/V with po intake at home with associated wt loss (unable to give amount). No evidence of abd pain, signs of bleeding, or LGI symptoms. No hx of PUD or prior EGD. No abdominal surgeries. No alcohol or illicit drug use. Past History Past Medical History: other (see HPI) Past Surgical History: No surgical history Social history: denies: smoking, alcohol abuse Family history: diabetes, hypertension Medications and Allergies Allergies Allergy/AdvReac Type Severity Reaction Status Date / Time No Known Allergies Allergy Unverified 08/01/19 09:00 Home Medications Medication Instructions Recorded Confirmed Last Taken Type Insulin Glargine [Lantus VIAL] 52 units IM DAILY 08/01/19 08/21/19 Unknown History Latuda 80 mg PO DAILY 08/01/19 08/21/19 Unknown History Metoprolol [Lopressor TAB] 25 mg PO DAILY 08/01/19 08/21/19 Unknown History OLANzapine [Zyprexa] 10 mg PO DAILY 08/01/19 08/21/19 Unknown History metFORMIN [Glucophage] 850 mg PO TID 08/01/19 08/21/19 Unknown History traZODone [Desyrel] 100 mg PO PRN 08/01/19 08/21/19 Unknown History Cyanocobalamin [Vitamin B-12] 2,000 mcg PO QDAY #30 tablet 08/03/19 08/21/19 Unknown Rx methIMAzole [Tapazole] 15 mg PO Q24HR #30 tablet 08/03/19 08/21/19 Unknown Rx Active Meds: Active Medications Acetaminophen (Tylenol) 650 mg PO Q4H PRN PRN Reason: Pain MILD(1-3)/Fever >100.5/BAER Acetaminophen (Tylenol) 650 mg [place] Q4H PRN PRN Reason: Pain MILD(1-3)/Fever >100.5/BAER Cyanocobalamin (Vitamin B-12) 2,000 mcg PO QDAY [facility] Dextrose (D50w (25gm) Syringe) 50 ml IV Q30MIN PRN; Protocol PRN Reason: Hypoglycemia Enoxaparin Sodium (Enoxaparin) 40 mg SUB-Q QDAY@1000 [facility] Last Admin: 08/22/19 11:38 Dose: 40 mg Documented by: Potassium Chloride 20 meq/ (Dextrose) 1,010 mls @ 250 mls/hr IV DIRECT [facility] Last Admin: 08/22/19 11:31 Dose: 250 mls/hr Documented by: Insulin Glargine (Lantus) 30 units SUB-Q DAILY [facility] Insulin Human Lispro (Humalog) 0 unit SUB-Q Q4HR [facility]; Protocol Last Admin: 08/22/19 10:08 Dose: Not Given Documented by: Methimazole (Tapazole) 15 mg PO Q24HR [facility] Metoprolol Tartrate (Metoprolol) 25 mg PO DAILY [facility] Olanzapine (Zyprexa) 10 mg PO DAILY [facility] Ondansetron HCl (Zofran) 4 mg IV Q8H PRN PRN Reason: Nausea And Vomiting Sodium Chloride (Sodium Chloride Flush Syringe 10 Ml) 10 ml IV BID [facility] Last Admin: 08/22/19 11:38 Dose: 10 ml Documented by: Sodium Chloride (Sodium Chloride Flush Syringe 10 Ml) 10 ml IV PRN PRN PRN Reason: LINE FLUSH Trazodone HCl (Desyrel) 100 mg PO PRN [facility] medications reviewed/updated as required Review of Systems - Review of Systems All systems: negative Gastrointestinal: vomiting Exam - Constitutional Vital Signs: Temp Pulse Resp BP Pulse Ox 98.2 F 93 H 14 139/69 97 08/22/19 02:00 08/22/19 05:01 08/22/19 05:01 08/22/19 05:01 08/22/19 05:01 General appearance: no acute distress - EENT Eyes: PERRL, EOM intact ENT: hearing intact - Respiratory Respiratory effort: normal - Cardiovascular Rhythm: regular - Gastrointestinal General gastrointestinal: Present: soft, non-distended, normal bowel sounds - Integumentary Integumentary: Present: warm, dry - Neurologic Neurological: other (alert) - Labs CBC & Chem 7: 08/22/19 03:13 08/22/19 10:22 Lab Results: Laboratory Results - last 24 hr 08/21/19 08/21/19 08/21/19 20:50 20:50 22:34 WBC 9.5 RBC 3.46 L Hgb 10.4 L Hct 27.3 L MCV 79 L MCH 30 MCHC 35 H RDW 13.2 Plt Count 544 H Lymph % (Auto) 13.5 Stone % (Auto) 4.7 Eos % (Auto) 0.1 Baso % (Auto) 0.3 Lymph # 1.3 Stone # 0.5 Eos # 0.0 Baso # 0.0 Add Manual Diff Seg Neutrophils % 81.4 H Seg Neutrophils # 7.8 H Sodium 109 L* Potassium 4.2 Chloride 73.6 L Carbon Dioxide 21 L Anion Gap 19 BUN 14 Creatinine 1.4 Estimated GFR 52 BUN/Creatinine Ratio 10 Glucose 192 H POC Glucose Osmolality Uric Acid Calcium 8.3 L TSH Free T4 Plasma/Serum Alcohol < 0.01 08/21/19 08/22/19 08/22/19 23:00 03:13 03:13 WBC 8.8 RBC 3.58 L Hgb 10.4 L Hct 28.9 L MCV 81 L MCH 29 MCHC 36 H RDW 12.9 L Plt Count 595 H Lymph % (Auto) 21.0 Stone % (Auto) 10.6 H Eos % (Auto) 1.1 Baso % (Auto) 0.8 Lymph # 1.8 Stone # 0.9 H Eos # 0.1 Baso # 0.1 Add Manual Diff Complete Seg Neutrophils % 67.4 Seg Neutrophils # 6.0 Sodium 116 L* D 122 L D Potassium 3.8 4.1 Chloride 82.9 L 86.1 L Carbon Dioxide 19 L 23 Anion Gap 18 17 BUN 13 12 Creatinine 1.3 1.2 Estimated GFR 57 > 60 BUN/Creatinine Ratio 10 10 Glucose 182 H 110 H POC Glucose Osmolality Uric Acid Calcium 7.6 L 8.1 L TSH Free T4 Plasma/Serum Alcohol 01/02/0308/22/19 08/22/19 03:59 05:57 10:22 WBC RBC Hgb Hct MCV MCH MCHC RDW Plt Count Lymph % (Auto) Stone % (Auto) Eos % (Auto) Baso % (Auto) Lymph # Stone # Eos # Baso # Add Manual Diff Seg Neutrophils % Seg Neutrophils # Sodium 125 L 129 L Potassium 3.9 3.8 Chloride 89.8 L 91.8 L Carbon Dioxide 20 L 19 L Anion Gap 19 22 BUN 11 11 Creatinine 1.3 1.2 Estimated GFR 57 > 60 BUN/Creatinine Ratio 8 9 Glucose 124 H 126 H POC Glucose 101 Osmolality Uric Acid 5.0 Calcium 8.1 L 8.5 TSH Free T4 Plasma/Serum Alcohol 08/22/19 08/22/19 08/22/19 10:22 10:22 10:22 WBC RBC Hgb Hct MCV MCH MCHC RDW Plt Count Lymph % (Auto) Stone % (Auto) Eos % (Auto) Baso % (Auto) Lymph # Stone # Eos # Baso # Add Manual Diff Seg Neutrophils % Seg Neutrophils # Sodium Potassium Chloride Carbon Dioxide Anion Gap BUN Creatinine Estimated GFR BUN/Creatinine Ratio Glucose POC Glucose Osmolality 264 Uric Acid Calcium TSH 0.047 L Free T4 1.88 H Plasma/Serum Alcohol Assessment and Plan 1.N/V -afebrile -WBC WNL -H/H 10.4/28.9-stable; no active sign of bleeding -LFTs WNL prior admission (08/01/19) -sodium 116 now 129 -etiology-likely multifactorial -will order A1C, hepatic panel, and abd U/S for further evaluation -consider EGD based on progress -okay to start on trial of liquids as tolerated (recommend [employer] evaluation prior to initiation) -start on PPI -avoid narcotics -optimize glycemic control -continue antiemetics and supportive care -will follow 2.new onset seizure 2/2 to hyponatremia-management per nephrology/primary team 3.Hyperthyroidism 4.Diabetes mellitus (uncontrolled) 5.HTN 6.psych disorder (Schizophrenia?) <DEVON RUEDA - Last Filed: 08/23/19 14:14> Medications and Allergies Active Meds: Active Medications Acetaminophen (Tylenol) 650 mg PO Q4H PRN PRN Reason: Pain MILD(1-3)/Fever >100.5/BAER Last Admin: 08/22/19 23:54 Dose: 650 mg Documented by: Acetaminophen (Tylenol) 650 mg [place] Q4H PRN PRN Reason: Pain MILD(1-3)/Fever >100.5/BAER Cyanocobalamin (Vitamin B-12) 2,000 mcg PO QDAY [facility] Last Admin: 08/23/19 09:17 Dose: 2,000 mcg Documented by: Dextrose (D50w (25gm) Syringe) 50 ml IV Q30MIN PRN; Protocol PRN Reason: Hypoglycemia Enoxaparin Sodium (Enoxaparin) 40 mg SUB-Q QDAY@1000 [facility] Last Admin: 08/23/19 09:17 Dose: 40 mg Documented by: Hydralazine HCl (Apresoline) 10 mg IV Q4HR PRN PRN Reason: Hypertension Last Admin: 08/23/19 13:14 Dose: 10 mg Documented by: Dextrose (D5w) 1,000 mls @ 500 mls/hr IV DIRECT [facility] Last Admin: 08/23/19 12:00 Dose: 500 mls/hr Documented by: Insulin Glargine (Lantus) 30 units SUB-Q DAILY [facility] Last Admin: 08/23/19 09:45 Dose: 30 units Documented by: Insulin Human Lispro (Humalog) 0 unit SUB-Q Q4HR [facility]; Protocol Last Admin: 08/23/19 10:00 Dose: Not Given Documented by: Methimazole (Tapazole) 15 mg PO Q24HR [facility] Last Admin: 08/23/19 09:18 Dose: 15 mg Documented by: Metoprolol Tartrate (Metoprolol) 25 mg PO DAILY [facility] Last Admin: 08/23/19 09:43 Dose: 25 mg Documented by: Olanzapine (Zyprexa) 10 mg PO DAILY [facility] Last Admin: 08/23/19 09:18 Dose: 10 mg Documented by: Ondansetron HCl (Zofran) 4 mg IV Q8H PRN PRN Reason: Nausea And Vomiting Pantoprazole Sodium (Protonix) 40 mg IV QDAY [facility] Last Admin: 08/23/19 09:18 Dose: 40 mg Documented by: Sodium Chloride (Sodium Chloride Flush Syringe 10 Ml) 10 ml IV BID [facility] Last Admin: 08/23/19 09:18 Dose: 10 ml Documented by: Sodium Chloride (Sodium Chloride Flush Syringe 10 Ml) 10 ml IV PRN PRN PRN Reason: LINE FLUSH Trazodone HCl (Desyrel) 100 mg PO PRN [facility] Exam - Constitutional Vital Signs: Temp Pulse Resp BP Pulse Ox 98.2 F 83 14 180/89 99 08/23/19 12:00 08/23/19 13:14 08/23/19 13:00 08/23/19 13:14 08/23/19 13:11 - Labs CBC & Chem 7: 08/22/19 03:13 08/23/19 10:38 Lab Results: Laboratory Results - last 24 hr 08/22/19 08/22/19 08/22/19 16:50 19:02 20:08 Sodium 129 L Potassium 3.7 Chloride 94.3 L Carbon Dioxide 22 Anion Gap 16 BUN 10 Creatinine 1.3 Estimated GFR 57 BUN/Creatinine Ratio 8 Glucose 117 H POC Glucose 168 H 123 H Hemoglobin A1c Calcium 8.6 Total Bilirubin Direct Bilirubin Indirect Bilirubin AST ALT Alkaline Phosphatase Total Protein Albumin Albumin/Globulin Ratio Urine Color Urine Turbidity Urine pH Ur Specific [place] Urine Protein Urine Glucose (UA) Urine Ketones Urine Blood Urine Nitrite Urine Bilirubin Urine Urobilinogen Ur Leukocyte Esterase Urine WBC (Auto) Urine RBC (Auto) Urine Bacteria (Auto) Hyaline Casts Urine Mucus Urine Yeast (Budding) Urine Creatinine Urine Sodium 08/22/19 08/22/19 08/22/19 20:56 20:56 21:51 Sodium Potassium Chloride Carbon Dioxide Anion Gap BUN Creatinine Estimated GFR BUN/Creatinine Ratio Glucose POC Glucose 136 H Hemoglobin A1c Calcium Total Bilirubin Direct Bilirubin Indirect Bilirubin AST ALT Alkaline Phosphatase Total Protein Albumin Albumin/Globulin Ratio Urine Color Yellow Urine Turbidity Clear Urine pH 6.0 Ur Specific [place] 1.012 Urine Protein >500 Urine Glucose (UA) 150 Urine Ketones Tr Urine Blood Sm Urine Nitrite Neg Urine Bilirubin Neg Urine Urobilinogen < 2.0 Ur Leukocyte Esterase Mod Urine WBC (Auto) 16.0 H Urine RBC (Auto) 11.0 Urine Bacteria (Auto) 1+ Hyaline Casts 1 Urine Mucus Few Urine Yeast (Budding) 1+ Urine Creatinine 121.5 H Urine Sodium 45 08/23/19 08/23/19 08/23/19 01:07 02:32 04:07 Sodium 122 L D 125 L Potassium 3.5 L 3.9 Chloride 88.3 L 89.4 L Carbon Dioxide 21 L 23 Anion Gap 16 17 BUN 11 11 Creatinine 1.4 1.4 Estimated GFR 52 52 BUN/Creatinine Ratio 8 8 Glucose 306 H 109 H POC Glucose 150 H Hemoglobin A1c Calcium 8.1 L 8.6 Total Bilirubin Direct Bilirubin Indirect Bilirubin AST ALT Alkaline Phosphatase Total Protein Albumin Albumin/Globulin Ratio Urine Color Urine Turbidity Urine pH Ur Specific [place] Urine Protein Urine Glucose (UA) Urine Ketones Urine Blood Urine Nitrite Urine Bilirubin Urine Urobilinogen Ur Leukocyte Esterase Urine WBC (Auto) Urine RBC (Auto) Urine Bacteria (Auto) Hyaline Casts Urine Mucus Urine Yeast (Budding) Urine Creatinine Urine Sodium 08/23/19 08/23/19 08/23/19 04:07 04:07 07:39 Sodium 129 L Potassium 3.8 Chloride 92.7 L Carbon Dioxide 21 L Anion Gap 19 BUN 11 Creatinine 1.4 Estimated GFR 52 BUN/Creatinine Ratio 8 Glucose 121 H POC Glucose Hemoglobin A1c 6.7 H Calcium 8.6 Total Bilirubin 0.40 Direct Bilirubin < 0.2 Indirect Bilirubin 0.2 AST 26 ALT 14 Alkaline Phosphatase 78 Total Protein 6.3 Albumin 3.5 L Albumin/Globulin Ratio 1.3 Urine Color Urine Turbidity Urine pH Ur Specific [place] Urine Protein Urine Glucose (UA) Urine Ketones Urine Blood Urine Nitrite Urine Bilirubin Urine Urobilinogen Ur Leukocyte Esterase Urine WBC (Auto) Urine RBC (Auto) Urine Bacteria (Auto) Hyaline Casts Urine Mucus Urine Yeast (Budding) Urine Creatinine Urine Sodium 08/23/19 08/23/19 10:07 10:38 Sodium 122 L D Potassium 3.6 Chloride 85.8 L Carbon Dioxide 23 Anion Gap 17 BUN 11 Creatinine 1.3 Estimated GFR 57 BUN/Creatinine Ratio 8 Glucose 365 H POC Glucose 196 H Hemoglobin A1c Calcium 8.0 L Total Bilirubin Direct Bilirubin Indirect Bilirubin AST ALT Alkaline Phosphatase Total Protein Albumin Albumin/Globulin Ratio Urine Color Urine Turbidity Urine pH Ur Specific [place] Urine Protein Urine Glucose (UA) Urine Ketones Urine Blood Urine Nitrite Urine Bilirubin Urine Urobilinogen Ur Leukocyte Esterase Urine WBC (Auto) Urine RBC (Auto) Urine Bacteria (Auto) Hyaline Casts Urine Mucus Urine Yeast (Budding) Urine Creatinine Urine Sodium Assessment and Plan Patient seen and examined; agree with note above. presenting with hyponatremia and seizures; suspect n/v episode 2/2 to this. no n/v today. conservative management from gi stand point while acute medical issues are addressed. will s/o, please call as needed or with questions.
[2019-08-22] MEDS ORDERED: PANTOPRAZOLE 40 MG INJ IV ONE (16:42)
[2019-08-22] MEDS: PANTOPRAZOLE 40 MG INJ IV SCH (16:49)
--- NOTE | 2019-08-22 18:20 | Ultrasound Report ---
ULTRASOUND ABDOMEN, COMPLETE INDICATION: N/V. COMPARISON: None available. FINDINGS: Pancreas: Normal. Abdominal Aorta: Normal. IVC: Normal. Liver: Mild inhomogeneity Gallbladder: 4 mm gallbladder polyp Bile ducts: Normal. Common Bile Duct measures 3.9 mm. Right Kidney: Normal. Left Kidney: Normal. Spleen: Normal. Free fluid: None. Additional Findings: None. IMPRESSION: 1. Small gallbladder polyp. Negative for gallstones or biliary dilatation. 2. Hepatic and heterogeneity likely due to underlying hepatocellular disease. Signer Name: Mason Jimenez MD Signed: 08/22/2019 6:15 PM Workstation Name: [email or web address]
[2019-08-22] MEDS ORDERED: DEXTROSE 5% IN WATER 1,000 ML IV SCH ×2 (19:00→22:00)
[2019-08-22 20:52] LABS: Calcium 8.6 mg/dL (8.4-10.2)
[2019-08-22 21:25] LABS: Creatinine,Urine 121.5 mg/dL (0.1-20.0)
[2019-08-22 21:30] LABS: Bacteria,Urine 1+ /HPF (Negative); Bilirubin,Urine NEG (Negative); Blood,Urine SM (Negative); Color,Urine Yellow (Yellow); Hyaline Casts,Urine 1 /LPF; Mucus,Urine FEW /HPF; Urobilinogen,Urine < 2.0 mg/dL (<2.0)
[2019-08-22 21:33] LABS: Protein,Urine >500 mg/dL (Negative)
[2019-08-22] MEDS ORDERED: DEXTROSE 5% IN WATER 1,000 ML IV ONE ×2 (22:10→23:10)
--- NOTE | 2019-08-22 23:02 | Event Note ---
Date: 08/22/19 I called the nurse to follow up on the fluid order around 9.45 pm and found out that IV fluid orders were not carried out, I did discuss with the ICU nurse about giving the patient 1 L of D5 and then additional 5002 to make sure that his sodium is improving, nurse was advised to call our [facility] and call to make sure that the sodium is coming down at this time to target sodium is to keep him under 120 by all means for now patient may require more D5 boluses as tolerated Advised her to do a bladder scan to make sure he is not retaining, stict I/o needs to be done monitor for fluid overload
[2019-08-22] MEDS: ACETAMINOPHEN 325 MG TAB PO PRN (23:54)
[2019-08-23 01:48] LABS: Calcium 8.1 mg/dL (8.4-10.2)
[2019-08-23 05:08] LABS: Calcium 8.6 mg/dL (8.4-10.2)
[2019-08-23 05:13] LABS: Alanine Aminotransferase 14 units/L (7-56); Albumin 3.5 g/dL (3.9-5)
[2019-08-23 05:41] LABS: Bilirubin,Direct < 0.2 mg/dL (0-0.2)
[2019-08-23] MEDS: INSULIN LISPRO 100 UNIT/ML SUB-Q SCH ×6 (05:47→21:48)
--- NOTE | 2019-08-23 08:21 | Progress Note ---
Subjective Interval history: Patient was seen today for follow-up on multiple renal related issues Even though DDAVP was ordered yesterday patient did not receive any infusions since yesterday Discussed with ICU pharmacist to administer DDAVP 1 dose stat Patient's sodium did come down to 122 yesterday but has also increased to 129 this morning Vitals intake output medications were reviewed Past medical history: Reviewed Family, social history: Reviewed Allergies: Reviewed Physical examination General: No acute distress Vitals: Reviewed HEENT: Oral mucosa emains dry no icterus Neck: Supple no thyromegaly nodular mass or JVD Chest: Clear to auscultation anteriorly Heart: Regular rate and rhythm S1-S2 heard no S3-S4 Abdomen: Soft nontender no suprapubic masses no organomegaly Extremity: Dry skin less than 1+ edema Psych: No evidence of any agitation and aggression noted Derm: No petechial rash Assessment and plan: Moderately severe hyponatremia in a patient who has been admitted here, and has history of seizure disorder yesterday sodium increased to 129 which was successfully brought down to 122, he will need more fluid boluses with dextrose for now His urine sodium is elevated Patient likely has hyper thyroidism and needs to be seen by endocrine please arrange Proteinuria more than 500 mg a random specimen will need follow-up on that Even though DDAVP was ordered yesterday patient did not receive DDAVP since yesterday and I did discussed with ICU pharmacist to administer the dose right now 1 and then will follow up on the basic metabolic profile Goal will be to keep his sodium around 120 today and then gradually increase it tomorrow Patient may require more fluid boluses I have advised ICU nurse to call me with the next sodium result around 2:00 to decide about the fluid therapy, We'll continue to follow and make recommendation from renal standpoint Objective - Vital Signs Vital signs: Vital Signs - 12hr 08/22/19 08/22/19 08/22/19 20:26 20:36 23:01 Temperature 98.5 F Pulse Rate 100 H Pulse Rate [ 82 From Monitor] Respiratory 18 14 Rate Blood Pressure O2 Sat by Pulse 97 100 Oximetry 08/22/19 08/22/19 08/22/19 23:11 23:21 23:31 Temperature Pulse Rate 100 H 98 H 96 H Pulse Rate [ From Monitor] Respiratory 13 15 13 Rate Blood Pressure 89/45 89/45 143/69 O2 Sat by Pulse 99 98 99 Oximetry 08/22/19 08/22/19 08/22/19 23:41 23:49 23:51 Temperature 99.8 F H Pulse Rate 96 H 96 H Pulse Rate [ From Monitor] Respiratory 17 20 Rate Blood Pressure 143/69 143/69 O2 Sat by Pulse 99 98 Oximetry 08/23/19 08/23/19 08/23/19 00:00 00:11 00:21 Temperature Pulse Rate 92 H 92 H 94 H Pulse Rate [ 95 H From Monitor] Respiratory 16 17 17 Rate Blood Pressure 149/71 149/71 149/71 O2 Sat by Pulse 98 99 99 Oximetry 08/23/19 08/23/19 08/23/19 00:31 00:41 00:51 Temperature Pulse Rate 95 H 95 H 95 H Pulse Rate [ From Monitor] Respiratory 20 15 15 Rate Blood Pressure 149/71 149/71 149/71 O2 Sat by Pulse 96 95 Oximetry 08/23/19 08/23/19 08/23/19 01:00 01:11 01:21 Temperature Pulse Rate 93 H 94 H 94 H Pulse Rate [ From Monitor] Respiratory 17 16 19 Rate Blood Pressure 141/75 141/75 141/75 O2 Sat by Pulse Oximetry 08/23/19 08/23/19 08/23/19 01:31 01:41 01:51 Temperature Pulse Rate 97 H 94 H 95 H Pulse Rate [ From Monitor] Respiratory 14 14 15 Rate Blood Pressure 141/75 141/75 141/75 O2 Sat by Pulse Oximetry 08/23/19 08/23/19 08/23/19 02:00 02:11 02:21 Temperature Pulse Rate 94 H 102 H 95 H Pulse Rate [ From Monitor] Respiratory 16 16 17 Rate Blood Pressure 150/83 150/83 150/83 O2 Sat by Pulse 98 99 98 Oximetry 08/23/19 08/23/19 08/23/19 02:31 02:41 02:51 Temperature Pulse Rate 99 H 98 H 102 H Pulse Rate [ From Monitor] Respiratory 18 12 17 Rate Blood Pressure 150/83 150/83 150/83 O2 Sat by Pulse 98 99 99 Oximetry 08/23/19 08/23/19 08/23/19 03:00 03:11 03:21 Temperature Pulse Rate 98 H 89 94 H Pulse Rate [ From Monitor] Respiratory 19 14 14 Rate Blood Pressure 134/66 134/66 134/66 O2 Sat by Pulse 98 97 98 Oximetry 08/23/19 08/23/19 08/23/19 03:31 03:41 03:51 Temperature Pulse Rate 88 97 H 92 H Pulse Rate [ From Monitor] Respiratory 14 14 15 Rate Blood Pressure 134/66 134/66 134/66 O2 Sat by Pulse 98 98 98 Oximetry 08/23/19 08/23/19 08/23/19 04:00 04:11 04:15 Temperature 98.3 F Pulse Rate 94 H 95 H Pulse Rate [ 89 From Monitor] Respiratory 18 16 Rate Blood Pressure 136/64 136/64 O2 Sat by Pulse 98 98 Oximetry 08/23/19 08/23/19 08/23/19 04:21 04:31 04:41 Temperature Pulse Rate 92 H 89 94 H Pulse Rate [ From Monitor] Respiratory 17 15 19 Rate Blood Pressure 136/64 136/64 136/64 O2 Sat by Pulse 98 99 96 Oximetry 08/23/19 08/23/19 08/23/19 04:51 05:00 05:11 Temperature Pulse Rate 94 H 93 H 95 H Pulse Rate [ From Monitor] Respiratory 14 20 15 Rate Blood Pressure 136/64 143/75 143/75 O2 Sat by Pulse 99 99 99 Oximetry 08/23/19 08/23/19 08/23/19 05:21 05:31 05:41 Temperature Pulse Rate 94 H 93 H Pulse Rate [ From Monitor] Respiratory 19 29 H 24 Rate Blood Pressure 143/75 143/75 143/75 O2 Sat by Pulse 98 99 98 Oximetry 08/23/19 08/23/19 08/23/19 05:51 06:00 06:11 Temperature Pulse Rate 94 H 93 H 94 H Pulse Rate [ From Monitor] Respiratory 15 20 17 Rate Blood Pressure 143/75 156/77 156/77 O2 Sat by Pulse 99 53 L 67 L Oximetry 08/23/19 08/23/19 08/23/19 06:21 06:31 06:41 Temperature Pulse Rate 92 H 88 92 H Pulse Rate [ From Monitor] Respiratory 23 12 13 Rate Blood Pressure 156/77 156/77 156/77 O2 Sat by Pulse 68 L 97 95 Oximetry 08/23/19 08/23/19 08/23/19 06:51 07:00 07:11 Temperature Pulse Rate 89 89 91 H Pulse Rate [ From Monitor] Respiratory 21 13 16 Rate Blood Pressure 156/77 131/69 131/69 O2 Sat by Pulse 98 90 Oximetry 08/23/19 08/23/19 07:52 08:00 Temperature Pulse Rate Pulse Rate [ 87 From Monitor] Respiratory 12 Rate Blood Pressure O2 Sat by Pulse 95 98 Oximetry - Lab 08/22/19 03:13 08/24/19 05:25 Most recent lab results Calcium 8.6 mg/dL (8.4-10.2) 08/23/19 04:07 Urine Creatinine 121.5 mg/dL (0.1-20.0) H 08/22/19 20:56 Urine Sodium 45 mmol/L 08/22/19 20:56 Medications & Allergies - Medications Allergies/Adverse Reactions: Allergies No Known Allergies Allergy (Unverified 08/01/19 09:00) Home Medications: Home Medications Medication Instructions Recorded Confirmed Last Taken Type Insulin Glargine [Lantus VIAL] 52 units IM DAILY 08/01/19 08/21/19 Unknown History Latuda 80 mg PO DAILY 08/01/19 08/21/19 Unknown History Metoprolol [Lopressor TAB] 25 mg PO DAILY 08/01/19 08/21/19 Unknown History OLANzapine [Zyprexa] 10 mg PO DAILY 08/01/19 08/21/19 Unknown History metFORMIN [Glucophage] 850 mg PO TID 08/01/19 08/21/19 Unknown History traZODone [Desyrel] 100 mg PO PRN 08/01/19 08/21/19 Unknown History Cyanocobalamin [Vitamin B-12] 2,000 mcg PO QDAY #30 tablet 08/03/19 08/21/19 Unknown Rx methIMAzole [Tapazole] 15 mg PO Q24HR #30 tablet 08/03/19 08/21/19 Unknown Rx Active Medications: Generic Name Dose Route Start Last Admin Trade Name Freq PRN Reason Stop Dose Admin Acetaminophen 650 mg 08/22/19 00:31 08/22/19 23:54 Tylenol PO 650 mg Q4H PRN Administration Pain MILD(1-3)/Fever >100.5/BAER Acetaminophen 650 mg 08/22/19 00:31 Tylenol IA Q4H PRN Pain MILD(1-3)/Fever >100.5/BAER Cyanocobalamin 2,000 mcg 08/23/19 10:00 Vitamin B-12 PO QDAY [facility] Dextrose 50 ml 08/21/19 23:14 D50w (25gm) Syringe IV Q30MIN PRN Hypoglycemia Protocol Enoxaparin Sodium 40 mg 08/22/19 10:00 08/22/19 11:38 Enoxaparin SUB-Q 40 mg QDAY@1000 [facility] Administration Desmopressin Acetate 2 mcg/ 50.5 mls @ 100 mls/hr 08/23/19 19:00 Sodium Chloride IV Q8H ON [facility] OF [facility] Dextrose 1,000 mls @ 250 mls/hr 08/22/19 22:00 D5w IV DIRECT ON [facility] Insulin Glargine 30 units 08/23/19 10:00 Lantus SUB-Q DAILY [facility] Insulin Human Lispro 0 unit 08/22/19 02:00 08/23/19 05:48 Humalog SUB-Q Not Given Q4HR ON [facility] Protocol Methimazole 15 mg 08/23/19 10:00 Tapazole PO Q24HR ON [facility] Metoprolol Tartrate 25 mg 08/23/19 10:00 Metoprolol PO DAILY [facility] Olanzapine 10 mg 08/23/19 10:00 Zyprexa PO DAILY ON [facility] Ondansetron HCl 4 mg 08/22/19 00:31 Zofran IV Q8H PRN Nausea And Vomiting Pantoprazole Sodium 40 mg 08/22/19 15:00 08/22/19 16:49 Protonix IV 40 mg QDAY ON [facility] Administration Sodium Chloride 10 ml 08/22/19 10:00 08/22/19 22:13 Sodium Chloride Flush Syringe 10 Ml IV 10 ml BID [facility] Administration Sodium Chloride 10 ml 08/22/19 00:31 Sodium Chloride Flush Syringe 10 Ml IV PRN PRN LINE FLUSH Trazodone HCl 100 mg 08/22/19 12:00 Desyrel PO PRN [facility]
[2019-08-23 08:29] LABS: Calcium 8.6 mg/dL (8.4-10.2)
[2019-08-23] MEDS ORDERED: DESMOPRESSIN ACETATE 2 MCG in SODIUM CHLORIDE 0.9% 50 ML IV SCH (09:00)
[2019-08-23] MEDS: ENOXAPARIN 40 MG/0.4 ML INJ SUB-Q SCH (09:17)
[2019-08-23] MEDS: CYANOCOBALAMIN (VIT B-12) 1000 MCG TAB PO SCH (09:17)
[2019-08-23] MEDS: methIMAzole 5 MG TAB PO SCH (09:18)
[2019-08-23] MEDS: PANTOPRAZOLE 40 MG INJ IV SCH (09:18)
[2019-08-23] MEDS: DEXTROSE 5% IN WATER 1,000 ML IV SCH ×2 (09:30→12:00)
[2019-08-23] MEDS: METOPROLOL TARTRATE 25 MG TAB PO SCH (09:43)
[2019-08-23] MEDS: INSULIN GLARGINE 100 UNITS/ML SUB-Q SCH (09:45)
--- NOTE | 2019-08-23 11:56 | Gastroenterology Progress Note ---
<CHAPIS CLIFFORD - Last Filed: 08/23/19 11:50> Assessment and Plan 1.N/V -afebrile -WBC WNL -H/H 10.4/28.9-stable; no active sign of bleeding -LFTs WNL prior admission (08/01/19) -sodium 122 -etiology-likely multifactorial -A1C-6.7 -LFTs WNL -abd U/S showed gallbladder polyp but no stones or biliary dilatation -clinically, patient's vomiting has now resolved with no further episodes overnight or this am. Tolerating diet for breakfast. -no plan for EGD at this time (can be done as outpatient if symptoms persist once sodium corrected) -diet as tolerated -continue PPI -avoid narcotics for this my exacerbate symptoms -optimize glycemic control -continue antiemetics and supportive care -no further GI recommendations at this time -will sign off, please call if needed 2.new onset seizure 2/2 to hyponatremia-management per nephrology/primary team 3.Hyperthyroidism 4.Diabetes mellitus (uncontrolled) 5.HTN 6.psych disorder (Schizophrenia?) Subjective Date of service: 08/23/19 Principal diagnosis: vomiting Interval history: No acute distress. No further episodes of vomiting overnight or this am per nursing/family. Tolerated diet for breakfast. Denies abd pain. Objective - Constitutional Vitals: Temp Pulse Resp BP Pulse Ox 99.7 F H 94 H 12 146/77 98 08/23/19 08:00 08/23/19 09:43 08/23/19 08:00 08/23/19 09:43 08/23/19 08:00 General appearance: no acute distress - Respiratory Respiratory effort: normal - Cardiovascular Rhythm: regular - Gastrointestinal General gastrointestinal: Present: soft, non-tender, non-distended, normal bowel sounds - Neurologic Neurological: other (unable to assess) - Labs CBC & Chem 7: 08/22/19 03:13 08/23/19 10:38 Labs: Laboratory Results - last 24 hr 08/22/19 08/22/19 08/22/19 10:22 10:22 16:50 Sodium Potassium Chloride Carbon Dioxide Anion Gap BUN Creatinine Estimated GFR BUN/Creatinine Ratio Glucose POC Glucose 168 H Hemoglobin A1c Osmolality 264 Calcium Total Bilirubin Direct Bilirubin Indirect Bilirubin AST ALT Alkaline Phosphatase Total Protein Albumin Albumin/Globulin Ratio TSH 0.047 L Urine Color Urine Turbidity Urine pH Ur Specific [place] Urine Protein Urine Glucose (UA) Urine Ketones Urine Blood Urine Nitrite Urine Bilirubin Urine Urobilinogen Ur Leukocyte Esterase Urine WBC (Auto) Urine RBC (Auto) Urine Bacteria (Auto) Hyaline Casts Urine Mucus Urine Yeast (Budding) Urine Creatinine Urine Sodium 08/22/19 08/22/19 08/22/19 19:02 20:08 20:56 Sodium 129 L Potassium 3.7 Chloride 94.3 L Carbon Dioxide 22 Anion Gap 16 BUN 10 Creatinine 1.3 Estimated GFR 57 BUN/Creatinine Ratio 8 Glucose 117 H POC Glucose 123 H Hemoglobin A1c Osmolality Calcium 8.6 Total Bilirubin Direct Bilirubin Indirect Bilirubin AST ALT Alkaline Phosphatase Total Protein Albumin Albumin/Globulin Ratio TSH Urine Color Yellow Urine Turbidity Clear Urine pH 6.0 Ur Specific [place] 1.012 Urine Protein >500 Urine Glucose (UA) 150 Urine Ketones Tr Urine Blood Sm Urine Nitrite Neg Urine Bilirubin Neg Urine Urobilinogen < 2.0 Ur Leukocyte Esterase Mod Urine WBC (Auto) 16.0 H Urine RBC (Auto) 11.0 Urine Bacteria (Auto) 1+ Hyaline Casts 1 Urine Mucus Few Urine Yeast (Budding) 1+ Urine Creatinine Urine Sodium 08/22/19 08/22/19 08/23/19 20:56 21:51 01:07 Sodium 122 L D Potassium 3.5 L Chloride 88.3 L Carbon Dioxide 21 L Anion Gap 16 BUN 11 Creatinine 1.4 Estimated GFR 52 BUN/Creatinine Ratio 8 Glucose 306 H POC Glucose 136 H Hemoglobin A1c Osmolality Calcium 8.1 L Total Bilirubin Direct Bilirubin Indirect Bilirubin AST ALT Alkaline Phosphatase Total Protein Albumin Albumin/Globulin Ratio TSH Urine Color Urine Turbidity Urine pH Ur Specific [place] Urine Protein Urine Glucose (UA) Urine Ketones Urine Blood Urine Nitrite Urine Bilirubin Urine Urobilinogen Ur Leukocyte Esterase Urine WBC (Auto) Urine RBC (Auto) Urine Bacteria (Auto) Hyaline Casts Urine Mucus Urine Yeast (Budding) Urine Creatinine 121.5 H Urine Sodium 45 08/23/19 08/23/19 08/23/19 02:32 04:07 04:07 Sodium 125 L Potassium 3.9 Chloride 89.4 L Carbon Dioxide 23 Anion Gap 17 BUN 11 Creatinine 1.4 Estimated GFR 52 BUN/Creatinine Ratio 8 Glucose 109 H POC Glucose 150 H Hemoglobin A1c Osmolality Calcium 8.6 Total Bilirubin 0.40 Direct Bilirubin < 0.2 Indirect Bilirubin 0.2 AST 26 ALT 14 Alkaline Phosphatase 78 Total Protein 6.3 Albumin 3.5 L Albumin/Globulin Ratio 1.3 TSH Urine Color Urine Turbidity Urine pH Ur Specific [place] Urine Protein Urine Glucose (UA) Urine Ketones Urine Blood Urine Nitrite Urine Bilirubin Urine Urobilinogen Ur Leukocyte Esterase Urine WBC (Auto) Urine RBC (Auto) Urine Bacteria (Auto) Hyaline Casts Urine Mucus Urine Yeast (Budding) Urine Creatinine Urine Sodium 08/23/19 08/23/19 08/23/19 04:07 07:39 10:38 Sodium 129 L 122 L D Potassium 3.8 3.6 Chloride 92.7 L 85.8 L Carbon Dioxide 21 L 23 Anion Gap 19 17 BUN 11 11 Creatinine 1.4 1.3 Estimated GFR 52 57 BUN/Creatinine Ratio 8 8 Glucose 121 H 365 H POC Glucose Hemoglobin A1c 6.7 H Osmolality Calcium 8.6 8.0 L Total Bilirubin Direct Bilirubin Indirect Bilirubin AST ALT Alkaline Phosphatase Total Protein Albumin Albumin/Globulin Ratio TSH Urine Color Urine Turbidity Urine pH Ur Specific [place] Urine Protein Urine Glucose (UA) Urine Ketones Urine Blood Urine Nitrite Urine Bilirubin Urine Urobilinogen Ur Leukocyte Esterase Urine WBC (Auto) Urine RBC (Auto) Urine Bacteria (Auto) Hyaline Casts Urine Mucus Urine Yeast (Budding) Urine Creatinine Urine Sodium <DEVON RUEDA - Last Filed: 08/23/19 14:13> Assessment and Plan Patient seen and examined; agree with note above. presenting with hyponatremia and seizures; suspect n/v episode 2/2 to this. no n/v today. conservative management from gi stand point while acute medical issues are addressed. will s/o, please call as needed or with questions. Objective - Constitutional Vitals: Temp Pulse Resp BP Pulse Ox 98.2 F 83 14 180/89 99 08/23/19 12:00 08/23/19 13:14 08/23/19 13:00 08/23/19 13:14 08/23/19 13:11 - Labs CBC & Chem 7: 08/22/19 03:13 08/23/19 10:38 Labs: Laboratory Results - last 24 hr 08/22/19 08/22/19 08/22/19 16:50 19:02 20:08 Sodium 129 L Potassium 3.7 Chloride 94.3 L Carbon Dioxide 22 Anion Gap 16 BUN 10 Creatinine 1.3 Estimated GFR 57 BUN/Creatinine Ratio 8 Glucose 117 H POC Glucose 168 H 123 H Hemoglobin A1c Calcium 8.6 Total Bilirubin Direct Bilirubin Indirect Bilirubin AST ALT Alkaline Phosphatase Total Protein Albumin Albumin/Globulin Ratio Urine Color Urine Turbidity Urine pH Ur Specific [place] Urine Protein Urine Glucose (UA) Urine Ketones Urine Blood Urine Nitrite Urine Bilirubin Urine Urobilinogen Ur Leukocyte Esterase Urine WBC (Auto) Urine RBC (Auto) Urine Bacteria (Auto) Hyaline Casts Urine Mucus Urine Yeast (Budding) Urine Creatinine Urine Sodium 08/22/19 08/22/19 08/22/19 20:56 20:56 21:51 Sodium Potassium Chloride Carbon Dioxide Anion Gap BUN Creatinine Estimated GFR BUN/Creatinine Ratio Glucose POC Glucose 136 H Hemoglobin A1c Calcium Total Bilirubin Direct Bilirubin Indirect Bilirubin AST ALT Alkaline Phosphatase Total Protein Albumin Albumin/Globulin Ratio Urine Color Yellow Urine Turbidity Clear Urine pH 6.0 Ur Specific [place] 1.012 Urine Protein >500 Urine Glucose (UA) 150 Urine Ketones Tr Urine Blood Sm Urine Nitrite Neg Urine Bilirubin Neg Urine Urobilinogen < 2.0 Ur Leukocyte Esterase Mod Urine WBC (Auto) 16.0 H Urine RBC (Auto) 11.0 Urine Bacteria (Auto) 1+ Hyaline Casts 1 Urine Mucus Few Urine Yeast (Budding) 1+ Urine Creatinine 121.5 H Urine Sodium 45 08/23/19 08/23/19 08/23/19 01:07 02:32 04:07 Sodium 122 L D 125 L Potassium 3.5 L 3.9 Chloride 88.3 L 89.4 L Carbon Dioxide 21 L 23 Anion Gap 16 17 BUN 11 11 Creatinine 1.4 1.4 Estimated GFR 52 52 BUN/Creatinine Ratio 8 8 Glucose 306 H 109 H POC Glucose 150 H Hemoglobin A1c Calcium 8.1 L 8.6 Total Bilirubin Direct Bilirubin Indirect Bilirubin AST ALT Alkaline Phosphatase Total Protein Albumin Albumin/Globulin Ratio Urine Color Urine Turbidity Urine pH Ur Specific [place] Urine Protein Urine Glucose (UA) Urine Ketones Urine Blood Urine Nitrite Urine Bilirubin Urine Urobilinogen Ur Leukocyte Esterase Urine WBC (Auto) Urine RBC (Auto) Urine Bacteria (Auto) Hyaline Casts Urine Mucus Urine Yeast (Budding) Urine Creatinine Urine Sodium 08/23/19 08/23/19 08/23/19 04:07 04:07 07:39 Sodium 129 L Potassium 3.8 Chloride 92.7 L Carbon Dioxide 21 L Anion Gap 19 BUN 11 Creatinine 1.4 Estimated GFR 52 BUN/Creatinine Ratio 8 Glucose 121 H POC Glucose Hemoglobin A1c 6.7 H Calcium 8.6 Total Bilirubin 0.40 Direct Bilirubin < 0.2 Indirect Bilirubin 0.2 AST 26 ALT 14 Alkaline Phosphatase 78 Total Protein 6.3 Albumin 3.5 L Albumin/Globulin Ratio 1.3 Urine Color Urine Turbidity Urine pH Ur Specific [place] Urine Protein Urine Glucose (UA) Urine Ketones Urine Blood Urine Nitrite Urine Bilirubin Urine Urobilinogen Ur Leukocyte Esterase Urine WBC (Auto) Urine RBC (Auto) Urine Bacteria (Auto) Hyaline Casts Urine Mucus Urine Yeast (Budding) Urine Creatinine Urine Sodium 08/23/19 08/23/19 10:07 10:38 Sodium 122 L D Potassium 3.6 Chloride 85.8 L Carbon Dioxide 23 Anion Gap 17 BUN 11 Creatinine 1.3 Estimated GFR 57 BUN/Creatinine Ratio 8 Glucose 365 H POC Glucose 196 H Hemoglobin A1c Calcium 8.0 L Total Bilirubin Direct Bilirubin Indirect Bilirubin AST ALT Alkaline Phosphatase Total Protein Albumin Albumin/Globulin Ratio Urine Color Urine Turbidity Urine pH Ur Specific [place] Urine Protein Urine Glucose (UA) Urine Ketones Urine Blood Urine Nitrite Urine Bilirubin Urine Urobilinogen Ur Leukocyte Esterase Urine WBC (Auto) Urine RBC (Auto) Urine Bacteria (Auto) Hyaline Casts Urine Mucus Urine Yeast (Budding) Urine Creatinine Urine Sodium
[2019-08-23] MEDS: hydrALAZINE 20 MG/1 ML INJ IV PRN (13:14)
[2019-08-23 15:39] LABS: BUN/Creatinine Ratio 8; Blood Urea Nitrogen 10 mg/dL (9-20); Calcium 8.5 mg/dL (8.4-10.2); Hemolysis Index 178
--- NOTE | 2019-08-23 18:00 | Progress Note ---
Assessment and Plan Assessment and plan: 59-year-old man history of hypertension, diabetes, hyperlipidemia psych disorder was brought to the emergency room because he fell out of a hammock today shortly after started having a seizure. He was brought to the emergency room for evaluation, given IV Ativan and is now sedated. Patient was here 2 weeks ago and he was evaluated also for hyponatremia. He still denies excessive drinking of water, review of system is unobtainable * Patient was recently admitted with same condition, at the time also was diagnosed with hyperthyroidism and started on treatment. Imaging studies of head including MRI was unremarkable, New onset seizure secondary to hyponatremia correct Hyponatremia Severe hyponatremia Continue IV fluid but at 50cc/h-ADJUSTED PER NEPHROLOGY Monitor serial chemistries Nephrology was consulted to see the patient DDVAP ordered awaiting for it to be given since patient did not get it yesterday Acute metabolic encephalopathy secondary to hyponatremia Gastritis with persistent nausea with vomiting Diabetes Check fingersticks insulin sliding scale Hyperthyroidism Anemia Schizophrenia Psych consult Hypertension IV hydralazine as needed for blood pressure control DVT prophylaxis family updated The high probability of a clinically significant, sudden or life threatening deterioration of the [MENTAL, ENDIOCRINE] system(s) required my full and direct attention, intervention and personal management. The aggregate critical care time was [35] minutes. This time is in addition to time spent performing reported procedures but includes the following: [X] Data Review and interpretation [X] Patient assessment and monitoring of vital signs [X] Documentation [X] Medication orders and management History Interval history: Patient seen and examined, awake alert but not engaging. no new complaints, family at bedside Hospitalist Physical - Physical exam Narrative exam: Gen. appearance: Patient lying in bed, no apparent distress HEENT: Normocephalic, atraumatic, pupils equally round and reactive to light, unable to do extraocular movement intact, and no sclericterus,. No JVD or thyromegaly or nodule,neck supple, no carotid bruit ,mucous membranes moist, unable to examine oral cavity Heart: S1, S2, regular rate and rhythm Lungs: Clear to auscultation bilaterally, breathing comfortable Abdomen: Positive bowel sounds, nontender, nondistended, no organomegaly Extremity: No edema, cyanosis, clubbing Skin: No rash, nodules, warm, dry Neuro: awake, moves all extremity - Constitutional Vitals: Temp Pulse Resp BP Pulse Ox 98.2 F 83 14 180/89 99 08/23/19 12:00 08/23/19 13:14 08/23/19 13:00 08/23/19 13:14 08/23/19 13:11 Results - Labs CBC & Chem 7: 08/22/19 03:13 08/24/19 05:25 Labs: Laboratory Last Values WBC 8.8 K/mm3 (4.5-11.0) 08/22/19 03:13 RBC 3.58 M/mm3 (3.65-5.03) L 08/22/19 03:13 Hgb 10.4 gm/dl (11.8-15.2) L 08/22/19 03:13 Hct 28.9 % (35.5-45.6) L 08/22/19 03:13 MCV 81 fl (84-94) L 08/22/19 03:13 MCH 29 pg (28-32) 08/22/19 03:13 MCHC 36 % (32-34) H 08/22/19 03:13 RDW 12.9 % (13.2-15.2) L 08/22/19 03:13 Plt Count 595 K/mm3 (140-440) H 08/22/19 03:13 Lymph % (Auto) 21.0 % (13.4-35.0) 08/22/19 03:13 [place] % (Auto) 10.6 % (0.0-7.3) H 08/22/19 03:13 Eos % (Auto) 1.1 % (0.0-4.3) 08/22/19 03:13 Baso % (Auto) 0.8 % (0.0-1.8) 08/22/19 03:13 Lymph # 1.8 K/mm3 (1.2-5.4) 08/22/19 03:13 [place] # 0.9 K/mm3 (0.0-0.8) H 08/22/19 03:13 Eos # 0.1 K/mm3 (0.0-0.4) 08/22/19 03:13 Baso # 0.1 K/mm3 (0.0-0.1) 08/22/19 03:13 Add Manual Diff Complete 08/22/19 03:13 Seg Neutrophils % 67.4 % (40.0-70.0) 08/22/19 03:13 Seg Neutrophils # 6.0 K/mm3 (1.8-7.7) 08/22/19 03:13 Sodium 120 mmol/L (137-145) L 08/23/19 14:37 Potassium 4.0 mmol/L (3.6-5.0) 08/23/19 14:37 Chloride 83.9 mmol/L (98-107) L 08/23/19 14:37 Carbon Dioxide 20 mmol/L (22-30) L 08/23/19 14:37 Anion Gap 20 mmol/L 08/23/19 14:37 BUN 10 mg/dL (9-20) 08/23/19 14:37 Creatinine 1.2 mg/dL (0.8-1.5) 08/23/19 14:37 Estimated GFR > 60 ml/min 08/23/19 14:37 BUN/Creatinine Ratio 8 % 08/23/19 14:37 Glucose 218 mg/dL (75-100) H 08/23/19 14:37 POC Glucose 178 (70-105) H 08/23/19 15:53 Hemoglobin A1c 6.7 % (4-6) H 08/23/19 04:07 Osmolality 264 Mosm/kg 08/22/19 10:22 Uric Acid 5.0 mg/dL (3.5-7.6) 08/22/19 10:22 Calcium 8.5 mg/dL (8.4-10.2) 08/23/19 14:37 Total Bilirubin 0.40 mg/dL (0.1-1.2) 08/23/19 04:07 Direct Bilirubin < 0.2 mg/dL (0-0.2) 08/23/19 04:07 Indirect Bilirubin 0.2 mg/dL 08/23/19 04:07 AST 26 units/L (5-40) 08/23/19 04:07 ALT 14 units/L (7-56) 08/23/19 04:07 Alkaline Phosphatase 78 units/L (35-129) 08/23/19 04:07 Total Protein 6.3 g/dL (6.3-8.2) 08/23/19 04:07 Albumin 3.5 g/dL (3.9-5) L 08/23/19 04:07 Albumin/Globulin Ratio 1.3 % 08/23/19 04:07 TSH 0.047 mlU/mL (0.270-4.200) L 08/22/19 10:22 Free T4 1.88 ng/dL (0.76-1.46) H 08/22/19 10:22 Urine Color Yellow (Yellow) 08/22/19 20:56 Urine Turbidity Clear (Clear) 08/22/19 20:56 Urine pH 6.0 (5.0-7.0) 08/22/19 20:56 Ur Specific [place] 1.012 (1.003-1.030) 08/22/19 20:56 Urine Protein >500 mg/dL (Negative) 08/22/19 20:56 Urine Glucose (UA) 150 mg/dL (Negative) 08/22/19 20:56 Urine Ketones Tr mg/dL (Negative) 08/22/19 20:56 Urine Blood Sm (Negative) 08/22/19 20:56 Urine Nitrite Neg (Negative) 08/22/19 20:56 Urine Bilirubin Neg (Negative) 08/22/19 20:56 Urine Urobilinogen < 2.0 mg/dL (<2.0) 08/22/19 20:56 Ur Leukocyte Esterase Mod (Negative) 08/22/19 20:56 Urine WBC (Auto) 16.0 /HPF (0.0-6.0) H 08/22/19 20:56 Urine RBC (Auto) 11.0 /HPF (0.0-6.0) 08/22/19 20:56 Urine Bacteria (Auto) 1+ /HPF (Negative) 08/22/19 20:56 Hyaline Casts 1 /LPF 08/22/19 20:56 Urine Mucus Few /HPF 08/22/19 20:56 Urine Yeast (Budding) 1+ /HPF 08/22/19 20:56 Urine Creatinine 121.5 mg/dL (0.1-20.0) H 08/22/19 20:56 Urine Sodium 45 mmol/L 08/22/19 20:56 Plasma/Serum Alcohol < 0.01 % (0-0.07) 08/21/19 22:34 Active Medications - Current Medications Current Medications: Generic Name Dose Route Start Last Admin Trade Name Toddq PRN Reason Stop Dose Admin Acetaminophen 650 mg 08/22/19 00:31 08/22/19 23:54 Tylenol PO 650 mg Q4H PRN Administration Pain MILD(1-3)/Fever >100.5/BAER Acetaminophen 650 mg 08/22/19 00:31 Tylenol NM Q4H PRN Pain MILD(1-3)/Fever >100.5/BAER Cyanocobalamin 2,000 mcg 08/23/19 10:00 08/23/19 09:17 Vitamin B-12 PO 2,000 mcg QDAY LANG Administration Dextrose 50 ml 08/21/19 23:14 D50w (25gm) Syringe IV Q30MIN PRN Hypoglycemia Protocol Enoxaparin Sodium 40 mg 08/22/19 10:00 08/23/19 09:17 Enoxaparin SUB-Q 40 mg QDAY@1000 LANG Administration Hydralazine HCl 10 mg 08/23/19 12:15 08/23/19 13:14 Apresoline IV 10 mg Q4HR PRN Administration Hypertension Dextrose 1,000 mls @ 500 mls/hr 08/23/19 10:00 08/23/19 12:00 D5w IV 500 mls/hr DIRECT LANG Administration Insulin Glargine 30 units 08/23/19 10:00 08/23/19 09:45 Lantus SUB-Q 30 units DAILY LANG Administration Insulin Human Lispro 0 unit 08/22/19 02:00 08/23/19 10:00 Humalog SUB-Q Not Given Q4HR LANG Protocol Methimazole 15 mg 08/23/19 10:00 08/23/19 09:18 Tapazole PO 15 mg Q24HR LANG Administration Metoprolol Tartrate 25 mg 08/23/19 10:00 08/23/19 09:43 Metoprolol PO 25 mg DAILY LANG Administration Olanzapine 10 mg 08/23/19 10:00 08/23/19 09:18 Zyprexa PO 10 mg DAILY LANG Administration Ondansetron HCl 4 mg 08/22/19 00:31 Zofran IV Q8H PRN Nausea And Vomiting Pantoprazole Sodium 40 mg 08/22/19 15:00 08/23/19 09:18 Protonix IV 40 mg QDAY LANG Administration Sodium Chloride 10 ml 08/22/19 10:00 08/23/19 09:18 Sodium Chloride Flush Syringe 10 Ml IV 10 ml BID LANG Administration Sodium Chloride 10 ml 08/22/19 00:31 Sodium Chloride Flush Syringe 10 Ml IV PRN PRN LINE FLUSH Trazodone HCl 100 mg 08/22/19 12:00 Desyrel PO PRN LANG
--- NOTE | 2019-08-23 18:39 | Event Note ---
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 Per Nurse Urine output today is 2250mls so hopefully sodium should continue to rise. PLease call nephrology with next sodium level.
[2019-08-23] MEDS ORDERED: DEXTROSE 5% IN WATER 1,000 ML IV SCH (19:00)
[2019-08-23 19:33] LABS: BUN/Creatinine Ratio 8; Blood Urea Nitrogen 10 mg/dL (9-20); Calcium 8.2 mg/dL (8.4-10.2); Hemolysis Index 3
[2019-08-23] MEDS ORDERED: SODIUM CHLORIDE 3% 200 ML IV ONE (20:43)
[2019-08-23 23:48] LABS: BUN/Creatinine Ratio 9; Blood Urea Nitrogen 10 mg/dL (9-20); Calcium 8.2 mg/dL (8.4-10.2); Hemolysis Index 11
[2019-08-24 01:28] LABS: BUN/Creatinine Ratio 10; Blood Urea Nitrogen 11 mg/dL (9-20); Calcium 8.2 mg/dL (8.4-10.2); Hemolysis Index 5
[2019-08-24] MEDS: INSULIN LISPRO 100 UNIT/ML SUB-Q SCH ×3 (05:16→22:25)
[2019-08-24] MEDS: hydrALAZINE 20 MG/1 ML INJ IV PRN (05:16)
[2019-08-24 06:39] LABS: BUN/Creatinine Ratio 10; Blood Urea Nitrogen 10 mg/dL (9-20); Calcium 8.2 mg/dL (8.4-10.2); Hemolysis Index 5
[2019-08-24] MEDS ORDERED: traZODone 100 MG TAB PO PRN (08:00)
--- NOTE | 2019-08-24 08:22 | Progress Note ---
Subjective Principal diagnosis: vomiting Interval history: Patient was seen today for follow-up on multiple renal related issues sodium is currently 121 Events of 24 hour noted Patient was given 3% saline overnight Vitals intake output medications were reviewed Past medical history: Reviewed Family, social history: Reviewed Allergies: Reviewed Physical examination General: No acute distress Vitals: Reviewed HEENT: Oral mucosa emains dry no icterus Neck: Supple no thyromegaly nodular mass or JVD Chest: Clear to auscultation anteriorly Heart: Regular rate and rhythm S1-S2 heard no S3-S4 Abdomen: Soft nontender no suprapubic masses no organomegaly Extremity: Dry skin less than 1+ edema Psych: No evidence of any agitation and aggression noted Derm: No petechial rash Assessment and plan: Moderately severe hyponatremia, current sodium is 121 at this point we will change the IV fluid, follow up on the potassium level depending on the new labs, patient was given 500 mL of 3% saline, overnight by my colleague Goal potassium today would be around 4 sodium should be around high 120s today Continue to monitor labs, at this time No indications to use 3% any further for now we will check magnesium level today Care plan has been discussed with patient's nurse Patient likely has hyperthyroidism and needs to be seen by vp human resources Proteinuria more than 500 mg a random specimen will need follow-up on that We'll continue to follow and make recommendation from renal standpoint Objective - Vital Signs Vital signs: Vital Signs - 12hr 08/23/19 08/23/19 08/23/19 20:31 20:41 20:51 Temperature Pulse Rate 79 78 84 Pulse Rate [ From Monitor] Respiratory 13 13 15 Rate Blood Pressure 146/60 146/60 146/60 O2 Sat by Pulse 99 99 99 Oximetry 08/23/19 08/23/19 08/23/19 21:01 21:09 21:11 Temperature Pulse Rate 83 80 Pulse Rate [ From Monitor] Respiratory 12 14 Rate Blood Pressure 146/60 146/60 O2 Sat by Pulse 99 98 98 Oximetry 08/23/19 08/23/19 08/23/19 21:21 21:31 21:41 Temperature Pulse Rate 83 80 84 Pulse Rate [ From Monitor] Respiratory 15 14 17 Rate Blood Pressure 146/60 146/60 146/60 O2 Sat by Pulse 98 97 98 Oximetry 08/23/19 08/23/19 08/23/19 21:51 22:00 22:11 Temperature Pulse Rate 82 81 80 Pulse Rate [ From Monitor] Respiratory 12 13 12 Rate Blood Pressure 146/60 146/62 146/62 O2 Sat by Pulse 99 98 99 Oximetry 08/23/19 08/23/19 08/23/19 22:21 22:31 22:41 Temperature Pulse Rate 81 78 77 Pulse Rate [ From Monitor] Respiratory 13 12 13 Rate Blood Pressure 146/62 146/62 146/62 O2 Sat by Pulse 99 99 99 Oximetry 08/23/19 08/23/19 08/23/19 22:50 23:01 23:11 Temperature Pulse Rate 79 97 H 85 Pulse Rate [ From Monitor] Respiratory 12 16 14 Rate Blood Pressure 146/62 172/64 172/64 O2 Sat by Pulse 99 97 100 Oximetry 08/23/19 08/23/19 08/23/19 23:21 23:31 23:41 Temperature Pulse Rate 83 82 78 Pulse Rate [ From Monitor] Respiratory 14 13 15 Rate Blood Pressure 172/64 172/64 172/64 O2 Sat by Pulse 100 99 100 Oximetry 08/23/19 08/24/19 08/24/19 23:51 00:00 00:11 Temperature 98.2 F Pulse Rate 77 74 84 Pulse Rate [ 86 From Monitor] Respiratory 11 L 13 13 Rate Blood Pressure 172/64 150/69 150/69 O2 Sat by Pulse 99 99 100 Oximetry 08/24/19 08/24/19 08/24/19 00:21 00:31 00:41 Temperature Pulse Rate 80 74 85 Pulse Rate [ From Monitor] Respiratory 13 12 14 Rate Blood Pressure 150/69 150/69 150/69 O2 Sat by Pulse 99 100 96 Oximetry 08/24/19 08/24/19 08/24/19 00:51 01:00 01:11 Temperature Pulse Rate 85 84 88 Pulse Rate [ From Monitor] Respiratory 14 13 12 Rate Blood Pressure 150/69 178/80 178/80 O2 Sat by Pulse 96 95 96 Oximetry 08/24/19 08/24/19 08/24/19 01:21 01:31 01:41 Temperature Pulse Rate 85 84 86 Pulse Rate [ From Monitor] Respiratory 12 13 15 Rate Blood Pressure 178/80 178/80 178/80 O2 Sat by Pulse 97 97 97 Oximetry 08/24/19 08/24/19 08/24/19 01:51 02:00 02:11 Temperature Pulse Rate 85 84 87 Pulse Rate [ From Monitor] Respiratory 13 Rate Blood Pressure 178/80 167/73 167/73 O2 Sat by Pulse 93 97 97 Oximetry 08/24/19 08/24/19 08/24/19 02:21 02:31 02:41 Temperature Pulse Rate 90 Pulse Rate [ From Monitor] Respiratory Rate Blood Pressure 167/73 167/73 167/73 O2 Sat by Pulse 98 97 98 Oximetry 08/24/19 08/24/19 08/24/19 02:51 03:00 03:11 Temperature Pulse Rate Pulse Rate [ From Monitor] Respiratory Rate Blood Pressure 167/73 170/74 170/74 O2 Sat by Pulse 97 96 98 Oximetry 08/24/19 08/24/19 08/24/19 03:21 03:31 03:41 Temperature Pulse Rate Pulse Rate [ From Monitor] Respiratory Rate Blood Pressure 170/74 170/74 170/74 O2 Sat by Pulse 97 97 97 Oximetry 08/24/19 08/24/19 08/24/19 03:51 04:00 04:11 Temperature 998.6 F H Pulse Rate 87 Pulse Rate [ 87 From Monitor] Respiratory 16 Rate Blood Pressure 170/74 170/74 162/71 O2 Sat by Pulse 99 99 98 Oximetry 08/24/19 08/24/19 08/24/19 04:21 04:31 04:40 Temperature Pulse Rate 88 82 80 Pulse Rate [ From Monitor] Respiratory 13 13 13 Rate Blood Pressure 162/71 162/71 162/71 O2 Sat by Pulse 98 97 97 Oximetry 08/24/19 08/24/19 08/24/19 04:51 05:00 05:11 Temperature Pulse Rate 99 H 99 H 101 H Pulse Rate [ From Monitor] Respiratory 14 13 13 Rate Blood Pressure 162/71 173/77 162/71 O2 Sat by Pulse 98 96 97 Oximetry 08/24/19 08/24/19 08/24/19 05:16 05:21 05:31 Temperature Pulse Rate 103 H 103 H 117 H Pulse Rate [ From Monitor] Respiratory 15 20 Rate Blood Pressure 173/77 162/71 162/71 O2 Sat by Pulse 97 97 Oximetry 08/24/19 08/24/19 08/24/19 05:41 05:51 06:01 Temperature Pulse Rate 118 H 111 H 111 H Pulse Rate [ From Monitor] Respiratory 16 15 Rate Blood Pressure 144/59 144/59 143/62 O2 Sat by Pulse 96 97 Oximetry - Lab 08/22/19 03:13 08/24/19 05:25 Most recent lab results Calcium 8.2 mg/dL (8.4-10.2) L 08/24/19 05:25 Urine Creatinine 121.5 mg/dL (0.1-20.0) H 08/22/19 20:56 Urine Sodium 10 mmol/L 08/23/19 19:55 Medications & Allergies - Medications Allergies/Adverse Reactions: Allergies No Known Allergies Allergy (Unverified 08/01/19 09:00) Home Medications: Home Medications Medication Instructions Recorded Confirmed Last Taken Type Insulin Glargine [Lantus VIAL] 52 units IM DAILY 08/01/19 08/21/19 Unknown History Latuda 80 mg PO DAILY 08/01/19 08/21/19 Unknown History Metoprolol [Lopressor TAB] 25 mg PO DAILY 08/01/19 08/21/19 Unknown History OLANzapine [Zyprexa] 10 mg PO DAILY 08/01/19 08/21/19 Unknown History metFORMIN [Glucophage] 850 mg PO TID 08/01/19 08/21/19 Unknown History traZODone [Desyrel] 100 mg PO PRN 08/01/19 08/21/19 Unknown History Cyanocobalamin [Vitamin B-12] 2,000 mcg PO QDAY #30 tablet 08/03/19 08/21/19 Unknown Rx methIMAzole [Tapazole] 15 mg PO Q24HR #30 tablet 08/03/19 08/21/19 Unknown Rx Active Medications: Generic Name Dose Route Start Last Admin Trade Name Zeeshan PRN Reason Stop Dose Admin Acetaminophen 650 mg 08/22/19 00:31 08/22/19 23:54 Tylenol PO 650 mg Q4H PRN Administration Pain MILD(1-3)/Fever >100.5/BAER Acetaminophen 650 mg 08/22/19 00:31 Tylenol DE Q4H PRN Pain MILD(1-3)/Fever >100.5/BAER Cyanocobalamin 2,000 mcg 08/23/19 10:00 08/23/19 09:17 Vitamin B-12 PO 2,000 mcg QDAY LANG Administration Dextrose 50 ml 08/21/19 23:14 D50w (25gm) Syringe IV Q30MIN PRN Hypoglycemia Protocol Enoxaparin Sodium 40 mg 08/22/19 10:00 08/23/19 09:17 Enoxaparin SUB-Q 40 mg QDAY@1000 LANG Administration Hydralazine HCl 10 mg 08/23/19 12:15 08/24/19 05:16 Apresoline IV 10 mg Q4HR PRN Administration Hypertension Insulin Glargine 30 units 08/23/19 10:00 08/23/19 09:45 Lantus SUB-Q 30 units DAILY LANG Administration Insulin Human Lispro 0 unit 08/22/19 02:00 08/24/19 05:16 Humalog SUB-Q Not Given Q4HR LANG Protocol Methimazole 15 mg 08/23/19 10:00 08/23/19 09:18 Tapazole PO 15 mg Q24HR LANG Administration Metoprolol Tartrate 25 mg 08/23/19 10:00 08/23/19 09:43 Metoprolol PO 25 mg DAILY LANG Administration Olanzapine 10 mg 08/23/19 10:00 08/23/19 09:18 Zyprexa PO 10 mg DAILY LANG Administration Ondansetron HCl 4 mg 08/22/19 00:31 Zofran IV Q8H PRN Nausea And Vomiting Pantoprazole Sodium 40 mg 08/24/19 10:00 Protonix PO DAILY LANG Sodium Chloride 10 ml 08/22/19 10:00 08/23/19 21:47 Sodium Chloride Flush Syringe 10 Ml IV 10 ml BID LANG Administration Sodium Chloride 10 ml 08/22/19 00:31 Sodium Chloride Flush Syringe 10 Ml IV PRN PRN LINE FLUSH Trazodone HCl 100 mg 08/24/19 08:00 Desyrel PO QHS PRN Insomnia
[2019-08-24] MEDS ORDERED: PANTOPRAZOLE 40 MG TAB PO SCH (10:00)
[2019-08-24] MEDS: METOPROLOL TARTRATE 25 MG TAB PO SCH (10:25)
[2019-08-24] MEDS: methIMAzole 5 MG TAB PO SCH (10:25)
[2019-08-24] MEDS: INSULIN GLARGINE 100 UNITS/ML SUB-Q SCH (10:26)
[2019-08-24] MEDS: ENOXAPARIN 40 MG/0.4 ML INJ SUB-Q SCH (10:26)
[2019-08-24] MEDS: CYANOCOBALAMIN (VIT B-12) 1000 MCG TAB PO SCH (10:30)
[2019-08-24 14:20] LABS: BUN/Creatinine Ratio 9; Blood Urea Nitrogen 10 mg/dL (9-20); Calcium 7.9 mg/dL (8.4-10.2); Hemolysis Index 14
[2019-08-24 18:07] LABS: BUN/Creatinine Ratio 11; Blood Urea Nitrogen 13 mg/dL (9-20); Calcium 8.4 mg/dL (8.4-10.2); Hemolysis Index 2
--- NOTE | 2019-08-24 19:07 | Progress Note ---
Assessment and Plan Assessment and plan: 59-year-old man history of hypertension, diabetes, hyperlipidemia psych disorder was brought to the emergency room because he fell out of a hammock today shortly after started having a seizure. He was brought to the emergency room for evaluation, given IV Ativan and is now sedated. Patient was here 2 weeks ago and he was evaluated also for hyponatremia. He still denies excessive drinking of water, review of system is unobtainable * Patient was recently admitted with same condition, at the time also was diagnosed with hyperthyroidism and started on treatment. Imaging studies of head including MRI was unremarkable, New onset seizure secondary to hyponatremia correct Hyponatremia Severe hyponatremia overnight needed 3% Nephrology adjusting fluids for better control RECEIVED DDVAP yesterday Acute metabolic encephalopathy secondary to hyponatremia Gastritis with persistent nausea with vomiting Diabetes Check fingersticks insulin sliding scale Hyperthyroidism Anemia Schizophrenia Psych consult Hypertension IV hydralazine as needed for blood pressure control DVT prophylaxis family updated The high probability of a clinically significant, sudden or life threatening deterioration of the [MENTAL, ENDIOCRINE] system(s) required my full and direct attention, intervention and personal management. The aggregate critical care time was [35] minutes. This time is in addition to time spent performing reported procedures but includes the following: [X] Data Review and interpretation [X] Patient assessment and monitoring of vital signs [X] Documentation [X] Medication orders and management History Interval history: Patient seen and examined, awake alert but still not engaging. no new complaints, family at bedside Hospitalist Physical - Physical exam Narrative exam: Gen. appearance: Patient lying in bed, no apparent distress HEENT: Normocephalic, atraumatic, pupils equally round and reactive to light, unable to do extraocular movement intact, and no sclericterus,. No JVD or thyromegaly or nodule,neck supple, no carotid bruit ,mucous membranes moist, unable to examine oral cavity Heart: S1, S2, regular rate and rhythm Lungs: Clear to auscultation bilaterally, breathing comfortable Abdomen: Positive bowel sounds, nontender, nondistended, no organomegaly Extremity: No edema, cyanosis, clubbing Skin: No rash, nodules, warm, dry Neuro: awake, moves all extremity - Constitutional Vitals: Temp Pulse Resp BP Pulse Ox 99.0 F 104 H 17 141/70 97 08/24/19 12:00 08/24/19 12:31 08/24/19 12:31 08/24/19 12:31 08/24/19 12:31 Results - Labs CBC & Chem 7: 08/22/19 03:13 08/24/19 17:45 Labs: Laboratory Last Values WBC 8.8 K/mm3 (4.5-11.0) 08/22/19 03:13 RBC 3.58 M/mm3 (3.65-5.03) L 08/22/19 03:13 Hgb 10.4 gm/dl (11.8-15.2) L 08/22/19 03:13 Hct 28.9 % (35.5-45.6) L 08/22/19 03:13 MCV 81 fl (84-94) L 08/22/19 03:13 MCH 29 pg (28-32) 08/22/19 03:13 MCHC 36 % (32-34) H 08/22/19 03:13 RDW 12.9 % (13.2-15.2) L 08/22/19 03:13 Plt Count 595 K/mm3 (140-440) H 08/22/19 03:13 Lymph % (Auto) 21.0 % (13.4-35.0) 08/22/19 03:13 [place] % (Auto) 10.6 % (0.0-7.3) H 08/22/19 03:13 Eos % (Auto) 1.1 % (0.0-4.3) 08/22/19 03:13 Baso % (Auto) 0.8 % (0.0-1.8) 08/22/19 03:13 Lymph # 1.8 K/mm3 (1.2-5.4) 08/22/19 03:13 [place] # 0.9 K/mm3 (0.0-0.8) H 08/22/19 03:13 Eos # 0.1 K/mm3 (0.0-0.4) 08/22/19 03:13 Baso # 0.1 K/mm3 (0.0-0.1) 08/22/19 03:13 Add Manual Diff Complete 08/22/19 03:13 Seg Neutrophils % 67.4 % (40.0-70.0) 08/22/19 03:13 Seg Neutrophils # 6.0 K/mm3 (1.8-7.7) 08/22/19 03:13 Sodium 120 mmol/L (137-145) L 08/24/19 17:45 Potassium 3.7 mmol/L (3.6-5.0) 08/24/19 17:45 Chloride 85.2 mmol/L (98-107) L 08/24/19 17:45 Carbon Dioxide 22 mmol/L (22-30) 08/24/19 17:45 Anion Gap 17 mmol/L 08/24/19 17:45 BUN 13 mg/dL (9-20) 08/24/19 17:45 Creatinine 1.2 mg/dL (0.8-1.5) 08/24/19 17:45 Estimated GFR > 60 ml/min 08/24/19 17:45 BUN/Creatinine Ratio 11 % 08/24/19 17:45 Glucose 139 mg/dL (75-100) H 08/24/19 17:45 POC Glucose 127 (70-105) H 08/24/19 17:27 Hemoglobin A1c 6.7 % (4-6) H 08/23/19 04:07 Osmolality 252 Mosm/kg 08/24/19 15:44 Uric Acid 3.0 mg/dL (3.5-7.6) L 08/24/19 15:44 Calcium 8.4 mg/dL (8.4-10.2) 08/24/19 17:45 Total Bilirubin 0.40 mg/dL (0.1-1.2) 08/23/19 04:07 Direct Bilirubin < 0.2 mg/dL (0-0.2) 08/23/19 04:07 Indirect Bilirubin 0.2 mg/dL 08/23/19 04:07 AST 26 units/L (5-40) 08/23/19 04:07 ALT 14 units/L (7-56) 08/23/19 04:07 Alkaline Phosphatase 78 units/L (35-129) 08/23/19 04:07 Total Protein 6.3 g/dL (6.3-8.2) 08/23/19 04:07 Albumin 3.5 g/dL (3.9-5) L 08/23/19 04:07 Albumin/Globulin Ratio 1.3 % 08/23/19 04:07 TSH 0.047 mlU/mL (0.270-4.200) L 08/22/19 10:22 Free T4 1.88 ng/dL (0.76-1.46) H 08/22/19 10:22 Urine Color Yellow (Yellow) 08/22/19 20:56 Urine Turbidity Clear (Clear) 08/22/19 20:56 Urine pH 6.0 (5.0-7.0) 08/22/19 20:56 Ur Specific [place] 1.012 (1.003-1.030) 08/22/19 20:56 Urine Protein >500 mg/dL (Negative) 08/22/19 20:56 Urine Glucose (UA) 150 mg/dL (Negative) 08/22/19 20:56 Urine Ketones Tr mg/dL (Negative) 08/22/19 20:56 Urine Blood Sm (Negative) 08/22/19 20:56 Urine Nitrite Neg (Negative) 08/22/19 20:56 Urine Bilirubin Neg (Negative) 08/22/19 20:56 Urine Urobilinogen < 2.0 mg/dL (<2.0) 08/22/19 20:56 Ur Leukocyte Esterase Mod (Negative) 08/22/19 20:56 Urine WBC (Auto) 16.0 /HPF (0.0-6.0) H 08/22/19 20:56 Urine RBC (Auto) 11.0 /HPF (0.0-6.0) 08/22/19 20:56 Urine Bacteria (Auto) 1+ /HPF (Negative) 08/22/19 20:56 Hyaline Casts 1 /LPF 08/22/19 20:56 Urine Mucus Few /HPF 08/22/19 20:56 Urine Yeast (Budding) 1+ /HPF 08/22/19 20:56 Urine Osmolality 371 Mosm/kg 08/23/19 19:55 Urine Creatinine 121.5 mg/dL (0.1-20.0) H 08/22/19 20:56 Urine Sodium 10 mmol/L 08/23/19 19:55 Urine Potassium 1.00 mmol/L 08/23/19 19:55 Plasma/Serum Alcohol < 0.01 % (0-0.07) 08/21/19 22:34 Active Medications - Current Medications Current Medications: Generic Name Dose Route Start Last Admin Trade Name Toddq PRN Reason Stop Dose Admin Acetaminophen 650 mg 08/22/19 00:31 08/22/19 23:54 Tylenol PO 650 mg Q4H PRN Administration Pain MILD(1-3)/Fever >100.5/BAER Acetaminophen 650 mg 08/22/19 00:31 Tylenol [place] Q4H PRN Pain MILD(1-3)/Fever >100.5/BAER Cyanocobalamin 2,000 mcg 08/23/19 10:00 08/24/19 10:30 Vitamin B-12 PO 2,000 mcg QDAY LANG Administration Dextrose 50 ml 08/21/19 23:14 D50w (25gm) Syringe IV Q30MIN PRN Hypoglycemia Protocol Enoxaparin Sodium 40 mg 08/22/19 10:00 08/24/19 10:26 Enoxaparin SUB-Q 40 mg QDAY@1000 LANG Administration Famotidine 40 mg 08/25/19 10:00 Pepcid PO QDAY LANG Hydralazine HCl 10 mg 08/23/19 12:15 08/24/19 05:16 Apresoline IV 10 mg Q4HR PRN Administration Hypertension Insulin Glargine 30 units 08/23/19 10:00 08/24/19 10:26 Lantus SUB-Q 30 units DAILY LANG Administration Insulin Human Lispro 0 unit 08/22/19 02:00 08/24/19 10:26 Humalog SUB-Q Not Given Q4HR [facility] Protocol Methimazole 15 mg 08/23/19 10:00 08/24/19 10:25 Tapazole PO 15 mg Q24HR LANG Administration Metoprolol Tartrate 25 mg 08/23/19 10:00 08/24/19 10:25 Metoprolol PO 25 mg DAILY LANG Administration Olanzapine 10 mg 08/23/19 10:00 08/24/19 10:25 Zyprexa PO 10 mg DAILY LANG Administration Ondansetron HCl 4 mg 08/22/19 00:31 Zofran IV Q8H PRN Nausea And Vomiting Sodium Chloride 10 ml 08/22/19 10:00 08/24/19 10:27 Sodium Chloride Flush Syringe 10 Ml IV 10 ml BID LANG Administration Sodium Chloride 10 ml 08/22/19 00:31 Sodium Chloride Flush Syringe 10 Ml IV PRN PRN LINE FLUSH Sodium Chloride 2 gm 08/24/19 20:00 Sodium Chloride PO TID LANG
[2019-08-24] MEDS ORDERED: SODIUM CHLORIDE 1 GM TAB PO SCH (20:00)
[2019-08-24] MEDS ORDERED: SODIUM CHLORIDE 3% 200 ML IV ONE (21:13)
[2019-08-25] MEDS: INSULIN LISPRO 100 UNIT/ML SUB-Q SCH ×8 (02:48→23:36)
[2019-08-25 05:39] LABS: BUN/Creatinine Ratio 11; Blood Urea Nitrogen 13 mg/dL (9-20); Calcium 8.7 mg/dL (8.4-10.2); Hemolysis Index 5
--- NOTE | 2019-08-25 08:30 | Progress Note ---
Subjective Principal diagnosis: vomiting Interval history: Patient was seen today for follow-up on multiple renal related issues patient is currently on salt tablets sodium is currently 131 Vitals intake output medications were reviewed Past medical history: Reviewed Family, social history: Reviewed Allergies: Reviewed Physical examination General: No acute distress Vitals: Reviewed HEENT: Oral mucosa emains dry no icterus Neck: Supple no thyromegaly nodular mass or JVD Chest: Clear to auscultation anteriorly Heart: Regular rate and rhythm S1-S2 heard no S3-S4 Abdomen: Soft nontender no suprapubic masses no organomegaly Extremity: Dry skin less than 1+ edema Psych: No evidence of any agitation and aggression noted Derm: No petechial rash Assessment and plan: Hyponatremia improving well current sodium is 131 at this point would like to discontinue sodium bicarbonate tablets and observe his sodium,I have discontinued trazodone as well as Protonix due to hyponatremia Hypokalemia: Patient needs replacement at least 40 and make you today and follow-up IV fluids are required at this time, encourage oral hydration and continue to follow limit fluid intake to about 1200 mL per day Care plan was discussed with patient's family member at the bedside, who also called her [place]yan speaking family member with whom I discussed, today and have been discussing for the last 3 days over the phone she has no difficulty understanding [place] Avoid proton pump inhibitor due to hyponatremia Objective - Vital Signs Vital signs: Vital Signs - 12hr 08/24/19 08/24/19 08/24/19 20:31 20:41 20:51 Temperature Pulse Rate 112 H 109 H 108 H Pulse Rate [ From Monitor] Respiratory 17 16 15 Rate Blood Pressure 149/69 149/69 149/69 O2 Sat by Pulse 97 96 97 Oximetry 08/24/19 08/24/19 08/24/19 21:00 21:10 21:21 Temperature Pulse Rate 112 H 109 H 109 H Pulse Rate [ From Monitor] Respiratory 17 15 15 Rate Blood Pressure 141/70 141/70 141/70 O2 Sat by Pulse 96 97 96 Oximetry 08/24/19 08/24/19 08/24/19 21:31 21:41 21:51 Temperature Pulse Rate 108 H 108 H 108 H Pulse Rate [ From Monitor] Respiratory 12 14 15 Rate Blood Pressure 141/70 141/70 141/70 O2 Sat by Pulse 96 97 96 Oximetry 08/24/19 08/24/19 08/24/19 22:00 22:11 22:20 Temperature Pulse Rate 103 H 104 H 103 H Pulse Rate [ From Monitor] Respiratory 14 16 14 Rate Blood Pressure 141/65 141/65 141/65 O2 Sat by Pulse 98 97 97 Oximetry 08/24/19 08/24/19 08/24/19 22:31 22:41 22:51 Temperature Pulse Rate 103 H 101 H 102 H Pulse Rate [ From Monitor] Respiratory 18 14 15 Rate Blood Pressure 141/65 141/65 O2 Sat by Pulse 97 97 97 Oximetry 08/24/19 08/24/19 08/24/19 23:01 23:11 23:21 Temperature Pulse Rate 106 H 101 H 103 H Pulse Rate [ From Monitor] Respiratory 15 13 15 Rate Blood Pressure 176/78 176/78 176/78 O2 Sat by Pulse 94 97 97 Oximetry 08/24/19 08/24/19 08/25/19 23:31 23:39 00:00 Temperature 98.0 F Pulse Rate 104 H 106 H 103 H Pulse Rate [ From Monitor] Respiratory 13 15 16 Rate Blood Pressure 176/78 176/78 154/74 O2 Sat by Pulse 97 97 97 Oximetry 08/25/19 08/25/19 08/25/19 00:59 01:00 02:00 Temperature Pulse Rate 99 H 106 H Pulse Rate [ 100 H From Monitor] Respiratory 14 15 18 Rate Blood Pressure 157/80 161/84 O2 Sat by Pulse 96 97 96 Oximetry 08/25/19 08/25/19 08/25/19 03:00 04:00 04:01 Temperature 98.3 F Pulse Rate 111 H 108 H 112 H Pulse Rate [ 100 H From Monitor] Respiratory 12 14 19 Rate Blood Pressure 163/84 148/83 O2 Sat by Pulse 95 96 94 Oximetry 08/25/19 08/25/19 05:01 06:00 Temperature Pulse Rate 110 H 110 H Pulse Rate [ From Monitor] Respiratory 16 19 Rate Blood Pressure 148/83 143/83 O2 Sat by Pulse 97 95 Oximetry - Lab 08/22/19 03:13 08/25/19 04:59 Most recent lab results Calcium 8.7 mg/dL (8.4-10.2) 08/25/19 04:59 Urine Creatinine 121.5 mg/dL (0.1-20.0) H 08/22/19 20:56 Urine Sodium 10 mmol/L 08/23/19 19:55 Medications & Allergies - Medications Allergies/Adverse Reactions: Allergies No Known Allergies Allergy (Unverified 08/01/19 09:00) Home Medications: Home Medications Medication Instructions Recorded Confirmed Last Taken Type Insulin Glargine [Lantus VIAL] 52 units IM DAILY 08/01/19 08/21/19 Unknown History Latuda 80 mg PO DAILY 08/01/19 08/21/19 Unknown History Metoprolol [Lopressor TAB] 25 mg PO DAILY 08/01/19 08/21/19 Unknown History OLANzapine [Zyprexa] 10 mg PO DAILY 08/01/19 08/21/19 Unknown History metFORMIN [Glucophage] 850 mg PO TID 08/01/19 08/21/19 Unknown History traZODone [Desyrel] 100 mg PO PRN 08/01/19 08/21/19 Unknown History Cyanocobalamin [Vitamin B-12] 2,000 mcg PO QDAY #30 tablet 08/03/19 08/21/19 Unknown Rx methIMAzole [Tapazole] 15 mg PO Q24HR #30 tablet 08/03/19 08/21/19 Unknown Rx Active Medications: Generic Name Dose Route Start Last Admin Trade Name Freq PRN Reason Stop Dose Admin Acetaminophen 650 mg 08/22/19 00:31 08/22/19 23:54 Tylenol PO 650 mg Q4H PRN Administration Pain MILD(1-3)/Fever >100.5/BAER Acetaminophen 650 mg 08/22/19 00:31 Tylenol PA Q4H PRN Pain MILD(1-3)/Fever >100.5/BAER Cyanocobalamin 2,000 mcg 08/23/19 10:00 08/24/19 10:30 Vitamin B-12 PO 2,000 mcg QDAY LANG Administration Dextrose 50 ml 08/21/19 23:14 D50w (25gm) Syringe IV Q30MIN PRN Hypoglycemia Protocol Enoxaparin Sodium 40 mg 08/22/19 10:00 08/24/19 10:26 Enoxaparin SUB-Q 40 mg QDAY@1000 LANG Administration Famotidine 40 mg 08/25/19 10:00 Pepcid PO QDAY LANG Hydralazine HCl 10 mg 08/23/19 12:15 08/24/19 05:16 Apresoline IV 10 mg Q4HR PRN Administration Hypertension Insulin Glargine 30 units 08/23/19 10:00 08/24/19 10:26 Lantus SUB-Q 30 units DAILY LANG Administration Insulin Human Lispro 0 unit 08/22/19 02:00 08/25/19 06:49 Humalog SUB-Q Not Given Q4HR LANG Protocol Methimazole 15 mg 08/23/19 10:00 08/24/19 10:25 Tapazole PO 15 mg Q24HR LANG Administration Metoprolol Tartrate 25 mg 08/23/19 10:00 08/24/19 10:25 Metoprolol PO 25 mg DAILY LANG Administration Olanzapine 10 mg 08/23/19 10:00 08/24/19 10:25 Zyprexa PO 10 mg DAILY LANG Administration Ondansetron HCl 4 mg 08/22/19 00:31 Zofran IV Q8H PRN Nausea And Vomiting Sodium Chloride 10 ml 08/22/19 10:00 08/24/19 21:58 Sodium Chloride Flush Syringe 10 Ml IV 10 ml BID LANG Administration Sodium Chloride 10 ml 08/22/19 00:31 Sodium Chloride Flush Syringe 10 Ml IV PRN PRN LINE FLUSH Sodium Chloride 2 gm 08/24/19 20:00 08/24/19 21:57 Sodium Chloride PO 2 gm TID LANG Administration
[2019-08-25] MEDS: ENOXAPARIN 40 MG/0.4 ML INJ SUB-Q SCH (10:24)
[2019-08-25] MEDS: FAMOTIDINE 20 MG TAB PO SCH (10:25)
[2019-08-25] MEDS: METOPROLOL TARTRATE 25 MG TAB PO SCH (10:25)
[2019-08-25] MEDS: CYANOCOBALAMIN (VIT B-12) 1000 MCG TAB PO SCH (10:27)
[2019-08-25] MEDS: methIMAzole 5 MG TAB PO SCH (10:27)
[2019-08-25] MEDS: INSULIN GLARGINE 100 UNITS/ML SUB-Q SCH (10:35)
[2019-08-25] MEDS ORDERED: POTASSIUM CHLORIDE ER 20 MEQ TAB PO ONE (19:11)
--- NOTE | 2019-08-25 19:56 | Progress Note ---
Assessment and Plan Assessment and plan: 59-year-old man history of hypertension, diabetes, hyperlipidemia psych disorder was brought to the emergency room because he fell out of a hammock today shortly after started having a seizure. He was brought to the emergency room for evaluation, given IV Ativan and is now sedated. Patient was here 2 weeks ago and he was evaluated also for hyponatremia. He still denies excessive drinking of water, review of system is unobtainable * Patient was recently admitted with same condition, at the time also was diagnosed with hyperthyroidism and started on treatment. Imaging studies of head including MRI was unremarkable, New onset seizure secondary to hyponatremia correct Hyponatremia No further seizure activity noted Counseling provided interpretation patient does not drive due to developmental d elay Severe hyponatremia overnight needed 3% normal saline Salt tablets was also started and now discontinued Trazodone and Protonix discontinued due to relationship to hyponatremia Nephrology adjusting fluids for better control RECEIVED DDVAP yesterday Acute metabolic encephalopathy secondary to hyponatremia Gastritis with persistent nausea with vomiting Diabetes Check fingersticks insulin sliding scale Hyperthyroidism Anemia Schizophrenia/history of developmental delay Psych consult Hypertension IV hydralazine as needed for blood pressure control DVT prophylaxis family updated Patient can be transferred off the unit to the regular floor with anticipation of discharge in a.m. History Interval history: Patient seen and examined, awake alert but still not engaging. no new complaints, family at bedside Hospitalist Physical - Physical exam Narrative exam: Gen. appearance: Patient lying in bed, no apparent distress HEENT: Normocephalic, atraumatic, pupils equally round and reactive to light, unable to do extraocular movement intact, and no sclericterus,. No JVD or thyr omegaly or nodule,neck supple, no carotid bruit ,mucous membranes moist, unable to examine oral cavity Heart: S1, S2, regular rate and rhythm Lungs: Clear to auscultation bilaterally, breathing comfortable Abdomen: Positive bowel sounds, nontender, nondistended, no organomegaly Extremity: No edema, cyanosis, clubbing Skin: No rash, nodules, warm, dry Neuro: awake, moves all extremity - Constitutional Vitals: Temp Pulse Resp BP Pulse Ox 99.8 F H 120 H 17 162/77 94 08/25/19 19:29 08/25/19 18:00 08/25/19 18:00 08/25/19 18:00 08/25/19 18:00 Results - Labs CBC & Chem 7: 08/22/19 03:13 08/25/19 04:59 Labs: Laboratory Last Values WBC 8.8 K/mm3 (4.5-11.0) 08/22/19 03:13 RBC 3.58 M/mm3 (3.65-5.03) L 08/22/19 03:13 Hgb 10.4 gm/dl (11.8-15.2) L 08/22/19 03:13 Hct 28.9 % (35.5-45.6) L 08/22/19 03:13 MCV 81 fl (84-94) L 08/22/19 03:13 MCH 29 pg (28-32) 08/22/19 03:13 MCHC 36 % (32-34) H 08/22/19 03:13 RDW 12.9 % (13.2-15.2) L 08/22/19 03:13 Plt Count 595 K/mm3 (140-440) H 08/22/19 03:13 Lymph % (Auto) 21.0 % (13.4-35.0) 08/22/19 03:13 [place] % (Auto) 10.6 % (0.0-7.3) H 08/22/19 03:13 Eos % (Auto) 1.1 % (0.0-4.3) 08/22/19 03:13 Baso % (Auto) 0.8 % (0.0-1.8) 08/22/19 03:13 Lymph # 1.8 K/mm3 (1.2-5.4) 08/22/19 03:13 [place] # 0.9 K/mm3 (0.0-0.8) H 08/22/19 03:13 Eos # 0.1 K/mm3 (0.0-0.4) 08/22/19 03:13 Baso # 0.1 K/mm3 (0.0-0.1) 08/22/19 03:13 Add Manual Diff Complete 08/22/19 03:13 Seg Neutrophils % 67.4 % (40.0-70.0) 08/22/19 03:13 Seg Neutrophils # 6.0 K/mm3 (1.8-7.7) 08/22/19 03:13 Sodium 131 mmol/L (137-145) L D 08/25/19 04:59 Potassium 3.5 mmol/L (3.6-5.0) L 08/25/19 04:59 Chloride 94.9 mmol/L (98-107) L 08/25/19 04:59 Carbon Dioxide 22 mmol/L (22-30) 08/25/19 04:59 Anion Gap 18 mmol/L 08/25/19 04:59 BUN 13 mg/dL (9-20) 08/25/19 04:59 Creatinine 1.2 mg/dL (0.8-1.5) 08/25/19 04:59 Estimated GFR > 60 ml/min 08/25/19 04:59 BUN/Creatinine Ratio 11 % 08/25/19 04:59 Glucose 132 mg/dL (75-100) H 08/25/19 04:59 POC Glucose 245 (70-105) H 08/25/19 18:36 Hemoglobin A1c 6.7 % (4-6) H 08/23/19 04:07 Osmolality 252 Mosm/kg 08/24/19 15:44 Uric Acid 3.0 mg/dL (3.5-7.6) L 08/24/19 15:44 Calcium 8.7 mg/dL (8.4-10.2) 08/25/19 04:59 Total Bilirubin 0.40 mg/dL (0.1-1.2) 08/23/19 04:07 Direct Bilirubin < 0.2 mg/dL (0-0.2) 08/23/19 04:07 Indirect Bilirubin 0.2 mg/dL 08/23/19 04:07 AST 26 units/L (5-40) 08/23/19 04:07 ALT 14 units/L (7-56) 08/23/19 04:07 Alkaline Phosphatase 78 units/L (35-129) 08/23/19 04:07 Total Protein 6.3 g/dL (6.3-8.2) 08/23/19 04:07 Albumin 3.5 g/dL (3.9-5) L 08/23/19 04:07 Albumin/Globulin Ratio 1.3 % 08/23/19 04:07 TSH 0.047 mlU/mL (0.270-4.200) L 08/22/19 10:22 Free T4 1.88 ng/dL (0.76-1.46) H 08/22/19 10:22 Urine Color Yellow (Yellow) 08/22/19 20:56 Urine Turbidity Clear (Clear) 08/22/19 20:56 Urine pH 6.0 (5.0-7.0) 08/22/19 20:56 Ur Specific [place] 1.012 (1.003-1.030) 08/22/19 20:56 Urine Protein >500 mg/dL (Negative) 08/22/19 20:56 Urine Glucose (UA) 150 mg/dL (Negative) 08/22/19 20:56 Urine Ketones Tr mg/dL (Negative) 08/22/19 20:56 Urine Blood Sm (Negative) 08/22/19 20:56 Urine Nitrite Neg (Negative) 08/22/19 20:56 Urine Bilirubin Neg (Negative) 08/22/19 20:56 Urine Urobilinogen < 2.0 mg/dL (<2.0) 08/22/19 20:56 Ur Leukocyte Esterase Mod (Negative) 08/22/19 20:56 Urine WBC (Auto) 16.0 /HPF (0.0-6.0) H 08/22/19 20:56 Urine RBC (Auto) 11.0 /HPF (0.0-6.0) 08/22/19 20:56 Urine Bacteria (Auto) 1+ /HPF (Negative) 08/22/19 20:56 Hyaline Casts 1 /LPF 08/22/19 20:56 Urine Mucus Few /HPF 08/22/19 20:56 Urine Yeast (Budding) 1+ /HPF 08/22/19 20:56 Urine Osmolality 371 Mosm/kg 08/23/19 19:55 Urine Creatinine 121.5 mg/dL (0.1-20.0) H 08/22/19 20:56 Urine Sodium 10 mmol/L 08/23/19 19:55 Urine Potassium 1.00 mmol/L 08/23/19 19:55 Plasma/Serum Alcohol < 0.01 % (0-0.07) 08/21/19 22:34 Active Medications - Current Medications Current Medications: Generic Name Dose Route Start Last Admin Trade Name Freq PRN Reason Stop Dose Admin Acetaminophen 650 mg 08/22/19 00:31 08/22/19 23:54 Tylenol PO 650 mg Q4H PRN Administration Pain MILD(1-3)/Fever >100.5/BAER Acetaminophen 650 mg 08/22/19 00:31 Tylenol [place] Q4H PRN Pain MILD(1-3)/Fever >100.5/BAER Cyanocobalamin 2,000 mcg 08/23/19 10:00 08/25/19 10:27 Vitamin B-12 PO 2,000 mcg QDAY LANG Administration Dextrose 50 ml 08/21/19 23:14 08/25/19 17:44 D50w (25gm) Syringe IV 50 ml Q30MIN PRN Administration Hypoglycemia Protocol Enoxaparin Sodium 40 mg 08/22/19 10:00 08/25/19 10:24 Enoxaparin SUB-Q 40 mg QDAY@1000 LANG Administration Famotidine 40 mg 08/25/19 10:00 08/25/19 10:25 Pepcid PO 40 mg QDAY LANG Administration Hydralazine HCl 10 mg 08/23/19 12:15 08/24/19 05:16 Apresoline IV 10 mg Q4HR PRN Administration Hypertension Insulin Glargine 30 units 08/23/19 10:00 08/25/19 10:35 Lantus SUB-Q 30 units DAILY LANG Administration Insulin Human Lispro 0 unit 08/22/19 02:00 08/25/19 17:49 Humalog SUB-Q Not Given Q4HR LANG Protocol Methimazole 15 mg 08/23/19 10:00 08/25/19 10:27 Tapazole PO 15 mg Q24HR LANG Administration Metoprolol Tartrate 25 mg 08/23/19 10:00 08/25/19 10:25 Metoprolol PO 25 mg DAILY LANG Administration Olanzapine 10 mg 08/23/19 10:00 08/25/19 10:27 Zyprexa PO 10 mg DAILY LANG Administration Ondansetron HCl 4 mg 08/22/19 00:31 Zofran IV Q8H PRN Nausea And Vomiting Sodium Chloride 10 ml 08/22/19 10:00 08/25/19 10:26 Sodium Chloride Flush Syringe 10 Ml IV 10 ml BID LANG Administration Sodium Chloride 10 ml 08/22/19 00:31 Sodium Chloride Flush Syringe 10 Ml IV PRN PRN LINE FLUSH
[2019-08-26] MEDS: INSULIN LISPRO 100 UNIT/ML SUB-Q SCH ×3 (05:49→10:00)
[2019-08-26] MEDS: ACETAMINOPHEN 325 MG TAB PO PRN (06:20)
[2019-08-26] MEDS ORDERED: cefTRIAXone/NS 1 GM/50 ML 1 GM/50 ML BAG IV SCH (10:00)
[2019-08-26] MEDS: INSULIN GLARGINE 100 UNITS/ML SUB-Q SCH ×2 (10:00→10:44)
[2019-08-26] MEDS: methIMAzole 5 MG TAB PO SCH (10:41)
[2019-08-26] MEDS: ENOXAPARIN 40 MG/0.4 ML INJ SUB-Q SCH (10:42)
[2019-08-26] MEDS: METOPROLOL TARTRATE 25 MG TAB PO SCH (10:42)
[2019-08-26] MEDS: FAMOTIDINE 20 MG TAB PO SCH (10:43)
[2019-08-26] MEDS: CYANOCOBALAMIN (VIT B-12) 1000 MCG TAB PO SCH (10:43)
--- NOTE | 2019-08-26 11:35 | Progress Note ---
Subjective Principal diagnosis: vomiting Interval history: Patient was seen today for follow-up on multiple renal related issues patient is currently on salt tablets sodium is currently 134 Vitals intake output medications were reviewed Past medical history: Reviewed Family, social history: Reviewed Allergies: Reviewed Physical examination General: No acute distress Vitals: Reviewed HEENT: Oral mucosa emains dry no icterus Neck: Supple no thyromegaly nodular mass or JVD Chest: Clear to auscultation anteriorly Heart: Regular rate and rhythm S1-S2 heard no S3-S4 Abdomen: Soft nontender no suprapubic masses no organomegaly Extremity: Dry skin less than 1+ edema Psych: No evidence of any agitation and aggression noted Derm: No petechial rash Assessment and plan: Severe hyponatremia: Slowly improving, sodium was 131 yesterday today 134 Renal function has been relatively stable creatinine is 1.4 Encourage oral hydration approximately 12-1500 mL per day Recommend keeping him off the trazodone which can worsen hyponatremia If required IV fluid can be given in the form of normal saline now We'll sign off the case please call if needed he will need to follow up in office in a week upon discharge Objective - Vital Signs Vital signs: Vital Signs - 12hr 08/26/19 08/26/19 08/26/19 00:00 04:00 05:52 Temperature 100.0 F H Pulse Rate 127 H 127 H 127 H Respiratory 20 Rate Blood Pressure 154/90 O2 Sat by Pulse 97 Oximetry - Lab 08/22/19 03:13 08/26/19 08:41 Most recent lab results Calcium 9.0 mg/dL (8.4-10.2) 08/26/19 08:41 Urine Creatinine 121.5 mg/dL (0.1-20.0) H 08/22/19 20:56 Urine Sodium 10 mmol/L 08/23/19 19:55 Medications & Allergies - Medications Allergies/Adverse Reactions: Allergies No Known Allergies Allergy (Unverified 08/01/19 09:00) Home Medications: Home Medications Medication Instructions Recorded Confirmed Last Taken Type Insulin Glargine [Lantus VIAL] 52 units IM DAILY 08/01/19 08/21/19 Unknown History Latuda 80 mg PO DAILY 08/01/19 08/21/19 Unknown History Metoprolol [Lopressor TAB] 25 mg PO DAILY 08/01/19 08/21/19 Unknown History OLANzapine [Zyprexa] 10 mg PO DAILY 08/01/19 08/21/19 Unknown History metFORMIN [Glucophage] 850 mg PO TID 08/01/19 08/21/19 Unknown History traZODone [Desyrel] 100 mg PO PRN 08/01/19 08/21/19 Unknown History Cyanocobalamin [Vitamin B-12] 2,000 mcg PO QDAY #30 tablet 08/03/19 08/21/19 Unknown Rx methIMAzole [Tapazole] 15 mg PO Q24HR #30 tablet 08/03/19 08/21/19 Unknown Rx Active Medications: Generic Name Dose Route Start Last Admin Trade Name Freq PRN Reason Stop Dose Admin Acetaminophen 650 mg 08/22/19 00:31 08/26/19 06:20 Tylenol PO 650 mg Q4H PRN Administration Pain MILD(1-3)/Fever >100.5/BAER Acetaminophen 650 mg 08/22/19 00:[address] Q4H PRN Pain MILD(1-3)/Fever >100.5/BAER Cyanocobalamin 2,000 mcg 08/23/19 10:00 08/26/19 10:43 Vitamin B-12 PO 2,000 mcg QDAY LANG Administration Dextrose 50 ml 08/21/19 23:14 08/25/19 17:44 D50w (25gm) Syringe IV 50 ml Q30MIN PRN Administration Hypoglycemia Protocol Enoxaparin Sodium 40 mg 08/22/19 10:00 08/26/19 10:42 Enoxaparin SUB-Q 40 mg QDAY@1000 LANG Administration Famotidine 40 mg 08/25/19 10:00 08/26/19 10:43 Pepcid PO 40 mg QDAY LANG Administration Hydralazine HCl 10 mg 08/23/19 12:15 08/24/19 05:16 Apresoline IV 10 mg Q4HR PRN Administration Hypertension Ceftriaxone Sodium 1 gm in 50 mls @ 100 mls/hr 08/26/19 10:00 08/26/19 10:43 Rocephin/Ns 1 Gm/50 Ml IV 100 mls/hr Q24HR LANG Administration Protocol Insulin Glargine 30 units 08/23/19 10:00 08/26/19 10:44 Lantus SUB-Q Not Given DAILY [facility] Insulin Human Lispro 0 unit 08/22/19 02:00 08/26/19 07:30 Humalog SUB-Q Not Given Q4HR LANG Protocol Methimazole 15 mg 08/23/19 10:00 08/26/19 10:41 Tapazole PO 15 mg Q24HR LANG Administration Metoprolol Tartrate 25 mg 08/23/19 10:00 08/26/19 10:42 Metoprolol PO 25 mg DAILY LANG Administration Olanzapine 10 mg 08/23/19 10:00 08/25/19 10:27 Zyprexa PO 10 mg DAILY LANG Administration Ondansetron HCl 4 mg 08/22/19 00:31 Zofran IV Q8H PRN Nausea And Vomiting Sodium Chloride 10 ml 08/22/19 10:00 08/26/19 10:44 Sodium Chloride Flush Syringe 10 Ml IV 10 ml BID LANG Administration Sodium Chloride 10 ml 08/22/19 00:31 Sodium Chloride Flush Syringe 10 Ml IV PRN PRN LINE FLUSH
[2019-08-26 12:52] VITALS: BP 192/101
--- NOTE | 2019-08-26 13:29 | Discharge Summary ---
Providers - Providers Date of Admission: 08/21/19 23:13 Attending physician: ADELA FOX MD 08/21/19 22:32 Consult to Physician [CONS] Urgent Comment: Dr. Okeefe spoke with Dr. Root @ [id number] Consulting Provider: ADIN ROOT Physician Instructions: Reason For Exam: hyponatremia 08/22/19 11:00 Consult to Mental Health [CONS] Routine Reason For Exam: acute psychosis Place consult to:: mental health Notified:: v Consult to Physician [CONS] Routine Comment: Consulting Provider: DEVON RUEDA Physician Instructions: Reason For Exam: persistent nasuea and vomiting 08/22/19 16:51 Speech Therapy Evaluation and Treat [CONS] Routine Reason For Exam: N/V, baseline Primary care physician: AIDEN CARCAMO Hospitalization Reason for admission: seizure Condition: Stable Hospital course: 59-year-old man history of hypertension, diabetes, hyperlipidemia psych disorder was brought to the emergency room because he fell out of a hammock today shortly after started having a seizure. He was brought to the emergency room for evaluation, given IV Ativan and is now sedated. Patient was here 2 weeks ago and he was evaluated also for hyponatremia. He still denies excessive drinking of water, review of system is unobtainable * Patient was recently admitted with same condition, at the time also was diagnosed with hyperthyroidism and started on treatment. Imaging studies of head including MRI was unremarkable, * discussed with family about medication changes including discontinuation of trazadone and PPI * No need for AED at this time as this was one episode and resolved * Strongly encouraged family to follow with [facility]. * Trazodone discontinued and family advised * alternative medication will be recommended by patients outpatient psychologist New onset seizure secondary to hyponatremia Severe hyponatremia Acute metabolic encephalopathy secondary to hyponatremia Gastritis with persistent nausea with vomiting Diabetes Hyperthyroidism Anemia Schizophrenia/history of developmental delay Hypertension Enterococus fecalis Acute Cystitis No sepsis Disposition: - TO HOME OR SELFCARE Time spent for discharge: 35 mins Core Measure Documentation - Palliative Care Palliative Care/ Comfort Measures: Not Applicable - Core Measures Any of the following diagnoses?: none Exam - Physical Exam Narrative exam: Gen. appearance: Patient lying in bed, no apparent distress HEENT: Normocephalic, atraumatic, pupils equally round and reactive to light, unable to do extraocular movement intact, and no sclericterus,. No JVD or thyromegaly or nodule,neck supple, no carotid bruit ,mucous membranes moist, unable to examine oral cavity Heart: S1, S2, regular rate and rhythm Lungs: Clear to auscultation bilaterally, breathing comfortable Abdomen: Positive bowel sounds, nontender, nondistended, no organomegaly Extremity: No edema, cyanosis, clubbing Skin: No rash, nodules, warm, dry Neuro: awake, moves all extremity - Constitutional Vitals: Temp Pulse Resp BP Pulse Ox 98.6 F 128 H 18 192/101 93 08/26/19 11:45 08/26/19 11:45 08/26/19 11:45 08/26/19 11:45 08/26/19 11:45 Plan Activity: advance as tolerated, no driving until cleared by PCP, fall precautions Diet: low fat Special Instructions: record daily weights, record daily BP diary Follow up with: AIDEN CARCAMO MD [Primary Care Provider] - 3-5 Days ARTURO ABARCA MD [Staff Physician] - 7 Days JAYLEN PETE MD [Staff Physician] - 7 Days
--- NOTE | 2019-08-26 15:34 | Consultation ---
History of Present Illness - Reason for Consult Consult date: 08/26/19 Reason for consult: acute psychosis - History of Present Psychiatric Illness Dwayne Souza is a 59y/o male patient. He was admitted for hyponatremia, according to records. The patient is lying in bed wake. He is calm. Dressed appropriately. He makes poor eye contact. Family is at bedside. They are [facility]. The patient does not speak [place]e. His family in the room says he has a "long history of being mental." They were unable to recall the medications the patient was taking but, says "his medication keeps him normal." The family member called the patient's son and says he will bring his medications to hospital. The patient was asked if he was having any SI/HI. The lady at the bedside translated and says the patient says "no." The patient also denies hallucinations of any kind, per family at bedside translating for patient. Asked if the patient was depressed or having down moods, she translates to patient and then replies "he's not depressed but takes his medications to help him." PAST PSYCHIATRIC HISTORY: Diagnoses: Paranoid Schizophrenia Suicide attempts or Self-harm behavior: denies Prior psychiatric hospitalizations: denies Substance Abuse history: Denies Previous psychiatric medications tried: "unable to answer" Outpatient treatment: "yes, he sees a doctor for his mental" PAST MEDICAL HISTORY: unable to assess Family Psychiatric History None reported or documented SOCIAL HISTORY Marital Status: Single Living Arrangements: Lives with brother Employment Status: Disabled Access to guns/weapons: Denies Education: "16 years old" History of Abuse: Denies Legal History: Denies REVIEW OF SYSTEMS Constitutional: Negative for weight loss ENT: Negative for stridor Respiratory: Negative for cough or hemoptysis All other systems reviewed and are negative Assessment: Psychosis Treatment Plan Medications - Agree with olanzapine Sitter: Defer to primary Medical: Per primary team Disposition: The patient does not meet the requirement for acute inpatient hospitalization at this time. Will continue to follow Please call with any questions or concerns. Thank you for this consult. Medications and Allergies Allergies Allergy/AdvReac Type Severity Reaction Status Date / Time No Known Allergies Allergy Unverified 08/01/19 09:00 Home Medications Medication Instructions Recorded Confirmed Last Taken Type Insulin Glargine [Lantus VIAL] 52 units IM DAILY 08/01/19 08/21/19 Unknown History Latuda 80 mg PO DAILY 08/01/19 08/21/19 Unknown History Metoprolol [Lopressor TAB] 25 mg PO DAILY 08/01/19 08/21/19 Unknown History OLANzapine [Zyprexa] 10 mg PO DAILY 08/01/19 08/21/19 Unknown History metFORMIN [Glucophage] 850 mg PO TID 08/01/19 08/21/19 Unknown History Cyanocobalamin [Vitamin B-12] 2,000 mcg PO QDAY #30 tablet 08/03/19 08/21/19 Unknown Rx methIMAzole [Tapazole] 15 mg PO Q24HR #30 tablet 08/03/19 08/21/19 Unknown Rx Active Meds: Active Medications Acetaminophen (Tylenol) 650 mg PO Q4H PRN PRN Reason: Pain MILD(1-3)/Fever >100.5/BAER Last Admin: 08/26/19 06:20 Dose: 650 mg Documented by: Acetaminophen (Tylenol) 650 mg [place] Q4H PRN PRN Reason: Pain MILD(1-3)/Fever >100.5/BAER Cyanocobalamin (Vitamin B-12) 2,000 mcg PO QDAY [facility] Last Admin: 08/26/19 10:43 Dose: 2,000 mcg Documented by: Dextrose (D50w (25gm) Syringe) 50 ml IV Q30MIN PRN; Protocol PRN Reason: Hypoglycemia Last Admin: 08/25/19 17:44 Dose: 50 ml Documented by: Enoxaparin Sodium (Enoxaparin) 40 mg SUB-Q QDAY@1000 LANG Last Admin: 08/26/19 10:42 Dose: 40 mg Documented by: Famotidine (Pepcid) 40 mg PO QDAY [facility] Last Admin: 08/26/19 10:43 Dose: 40 mg Documented by: Hydralazine HCl (Apresoline) 10 mg IV Q4HR PRN PRN Reason: Hypertension Last Admin: 08/24/19 05:16 Dose: 10 mg Documented by: Ceftriaxone Sodium (Rocephin/Ns 1 Gm/50 Ml) 1 gm in 50 mls @ 100 mls/hr IV Q24HR [facility]; Protocol Last Admin: 08/26/19 10:43 Dose: 100 mls/hr Documented by: Insulin Glargine (Lantus) 30 units SUB-Q DAILY [facility] Last Admin: 08/26/19 10:00 Dose: 30 units Documented by: Insulin Human Lispro (Humalog) 0 unit SUB-Q Q4HR [facility]; Protocol Last Admin: 08/26/19 10:00 Dose: 3 unit Documented by: Methimazole (Tapazole) 15 mg PO Q24HR [facility] Last Admin: 08/26/19 10:41 Dose: 15 mg Documented by: Metoprolol Tartrate (Metoprolol) 25 mg PO DAILY [facility] Last Admin: 08/26/19 10:42 Dose: 25 mg Documented by: Olanzapine (Zyprexa) 10 mg PO DAILY [facility] Last Admin: 08/26/19 10:00 Dose: 10 mg Documented by: Ondansetron HCl (Zofran) 4 mg IV Q8H PRN PRN Reason: Nausea And Vomiting Sodium Chloride (Sodium Chloride Flush Syringe 10 Ml) 10 ml IV BID [facility] Last Admin: 08/26/19 10:44 Dose: 10 ml Documented by: Sodium Chloride (Sodium Chloride Flush Syringe 10 Ml) 10 ml IV PRN PRN PRN Reason: LINE FLUSH Mental Status Exam - Vital signs Last Vital Signs Temp 98.6 F 08/26/19 11:45 Pulse 128 H 08/26/19 11:45 Resp 18 08/26/19 11:45 BP 192/101 08/26/19 11:45 Pulse Ox 93 08/26/19 11:45 Results Result Diagrams: 08/22/19 03:13 08/26/19 08:41 Abnormal lab results 08/25/19 08/25/19 08/25/19 Range/Units 17:39 18:36 23:32 Sodium (137-145) mmol/L Carbon Dioxide (22-30) mmol/L Glucose (75-100) mg/dL POC Glucose 58 L 245 H 150 H (70-105) 08/26/19 08/26/19 08/26/19 Range/Units 07:47 08:41 11:24 Sodium 134 L (137-145) mmol/L Carbon Dioxide 20 L (22-30) mmol/L Glucose 135 H (75-100) mg/dL POC Glucose 132 H 283 H (70-105) All other labs normal.
== END 2019-08-26 17:00 | disposition home health service (06) | DRG 640 ==
LOC: ED 18:30 → IMCU 23:13 → 3A 08-25 21:17
PROVIDERS: ADMIT Internal Medicine; ATTEND Internal Medicine
DX: E87.1 Hypo-osmolality and hyponatremia (principal); G93.41 Metabolic encephalopathy; E11.9 Type 2 diabetes mellitus without complications; I10 Essential (primary) hypertension; E78.5 Hyperlipidemia, unspecified; G40.909 Epilepsy, unspecified, not intractable, without status epilepticus; K29.70 Gastritis, unspecified, without bleeding; E05.90 Thyrotoxicosis, unspecified without thyrotoxic crisis or storm; F20.9 Schizophrenia, unspecified; D64.9 Anemia, unspecified; K82.4 Cholesterolosis of gallbladder; E87.6 Hypokalemia; N30.00 Acute cystitis without hematuria; F29 Unspecified psychosis not due to a substance or known physiological condition; W18.30XA Fall on same level, unspecified, initial encounter; Y93.89 Activity, other specified; Y92.89 Other specified places as the place of occurrence of the external cause; Y99.8 Other external cause status; Z79.4 Long term (current) use of insulin
CPT/HCPCS: 36415; 70450; 76700; 80048; 80076; 80320; 81001; 82533; 82570; 82962; 83036; 83930; 83935; 84133; 84300; 84439; 84443; 84550; 85025; 87076; 87086; 87186; 94760; 96374; G0378; C9113; G0480; J0360; J0696; J1650; J1815; J1953; J2597; J3480; J7030; J7050; J7070